=== PATIENT | male | born 1955 | race Caucasian/White ===

== ENCOUNTER 2018-03-06 09:43 | Inpatient (IN) | payer OTHER ==
[~2018-03-06 09:43] MED LIST: Buffered Lidocaine 0.9% SYRIN* 5 ML/SYR SYRINGE INTRADERM ONE; Sodium Citrate/Citric Acid* 15 ML UDC PO ONE
--- OUTSIDE RECORDS SUMMARY | 2018-03-06 09:51 | XMS REPORT | Continuity of Care Document ---
:1955 External Reference #:[id number] Author Name Mariely Isabela Care Team Providers Name Role Phone Samy Tipton M.D. Primary Care Physician Unavailable Payers Type Date Identification Numbers Payment Provider Subscriber Effective: Policy Number: [id number] [employer] Arthur Wilbur 2014 Medicaid PayID: [id number] [address] [address] [place] [address] Effective: 2011 Policy Number: [id number] [employer] Arthur Wilbur Expires: 2014 PayID: [id number] [address] [address] [place] [address] Effective: 2010 Policy Number: [id number] [employer] Arthur Wilbur Expires: 2011 PayID: [id number] [address] [address] [place] [address] Effective: 2007 Policy Number: [id number] [facility] Ppo Arthur Wilbur Expires: 2010 PayID: [id number] [address] [address] [place] [address] Advance Directives Description No Information Available Problems Date Description Provider Status Onset: 12/13/2011 Aortocoronary Bypass Postsurgical Ana Rosa Cervantes D.O. Active Status Onset: 12/27/2011 Coronary arteriosclerosis Genesis Ayers N.PPenny Active Onset: 12/27/2011 Benign essential hypertension Genesis Ayers N.PPenny Active Onset: 12/27/2011 Hyperlipidemia Genesis Ayers N.Faith Active Onset: 12/27/2011 Type 2 diabetes mellitus with Genesis Ayers NCuauhtemoc Active multiple complications Onset: 04/22/2012 Chronic ischemic heart disease Ana Rosa Cervantes D.O. Active Onset: 06/11/2012 Chest pain Ana Rosa Cervantes D.O. Active Onset: 01/04/2015 Type II diabetes mellitus Dejah Cano M.D. Active uncontrolled Onset: 08/15/2015 Type II diabetes mellitus Dejah Cano M.D. Active uncontrolled Onset: 02/26/2017 Skin sensation disturbance Soraya Henry M.D. Active Onset: 02/26/2017 Carpal tunnel syndrome Soraya Henry M.D. 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 Onset: 12/16/2017 Cervical kyphosis Emory Em MD Active Family History Date Family Member(s) Problem(s) Comments : (age 70 Father due to [place] Years) Children 2 daughters, 1 son 1 son bipolar Siblings 3 brothers, 1 half sister 1 brother [place], CAGB, younger brother htn Social History Type Date Description Comments Sex Unknown Marital Status Lives With Son 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[employer], 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 Tobacco Use Start: Unknown Never Smoked Cigarettes Smoking Status Reviewed: 02/28/18 Never Smoked Cigarettes ETOH Use Denies alcohol use ETOH Use Has consumed alcohol in the past Tobacco Use Start: Unknown Patient has never smoked Recreational Drug Use Denies Drug Use Exercise Type/Frequency Does not exercise Allergies, Adverse Reactions, Alerts Date Description Reaction Status Severity Comments 03/27/2016 Codeine Hyperactivity Active 12/13/2011 No Known Drug Allergy Inactive Medications Medication Date Status Form Strength Qnty SIG Indications Ordering Provider Atorvastatin 02/27 Active Tablets 40mg 90tab 1 by mouth Dejah s every day Lyudmila Cano M.D. Diltiazem CD 10/09 Active Caps ER 240mg 30cap 1 tab by R00.1 Dejah 24HR s mouth F. Mauser, every day M.DPenny Mirtazapine 09/17 Active Tablets 15mg 30tab -1 tab by Dejah /2016 s mouth at Penny Cano, bedtime M.DPenny prn Metformin HCL ER Active Tablets 1000mg once daily Unknown /0000 ER 24HR Aspirin Ec Lo-Dose Active Tablets 81mg 1 tablet Unknown /0000 DR daily. Gas Relief Active Chewtabs 80mg 1 tab Unknown three times daily orally as needed Pantoprazole Active Solution 40mg 1 by mouth Unknown Sodium Rec every day Hydrochlorothiazid Active Tablets 12.5mg Take One Unknown e 0000 Tablet By Mouth Every Day Zolpidem Tartrate Active Tablets 5mg as needed Danuta, at bedtime Fredrick Glover Ranitidine HCL Active Tablets 150mg take one Unknown tablet as needed Atorvastatin 12/11 Hx Tablets 20mg take 1 Dejah Calcium tablet at Penny Cano, - bedtime M.D. 02/27 Vitamin B6 05/03 Hx Tablets 50mg 1 by mouth Vassilios every day Maria Antonia Martinez MD 09/08 Wrist Splints - 04/17 Hx Misc 2unit use Soraya Mrai Thumb s nightly to Elaine, - help with M.D. 09/08 numbness and tingling in the r&L hand (r & L Hand-Open Thumb Wrist Splint) , size accordingl y Valium 02/26 Hx Tablets 5mg 2tabs 1-2 by R20.2 Soraya Tena /Dian Henry, - to mri M.D. 05/03 Atorvastatin 08/14 Hx Tablets 40mg 1 by mouth Dejah Calcium /2015 every day, Lyudmila Cano, - (pt taking M.D. 12/11 20mg tab daily) Atorvastatin 08/31 Hx Tablets 20mg 30tab 2 by mouth Dejah Calcium /2014 s every day Lyudmila Cano, - M.D. 08/14 Metoprolol 04/21 Hx Tablets 25mg 60tab 1/2 by Dejah Succinate ER ER 24HR s mouth Lyudmila Cano, - daily M.D. 06/08 Enalapril Maleate 03/15 Hx Tablets 20mg 30tab 1 /2 by Dejah /2013 s mouth Lyudmila Cano, - twice a M.D. (increased 03/05/16) Metoprolol 03/15 Hx Tablets 100mg 1/2 by Dejah Succinate ER 24HR mouth Lyudmila Cano, - twice a M.D. Hydrochlorothiazid 03/14 Hx Tablets 25mg 30tab 1 tab by Other e s mouth Ordering - every day Provider 02/26 Penicillin V 03/14 Hx Tablets 500mg 40tab 2 tabs by Other Potassium s mouth then Ordering - 1 three Provider 09/08 times day for dental work Atorvastatin 07/22 Hx Tablets 40mg 30tab 1 tablet Monet s by mouth Romney, - daily M.D. 08/31 Metoprolol 06/11 Hx Tablets 100mg 1 1/2 tabs Other Succinate ER 24HR once daily Ordering - Provider 03/15 Aleve 06/11 Hx Capsules 220mg 60cap 1 po prn s - 03/14 Simvastatin 04/22 Hx Tablets 40mg 30tab 1 po qhs radu Cervantes, - D.OPenny 07/22 Gas-X 12/26 Hx once daily Andria, - N.P. 06/11 Melatonin 12/26 Hx one at bedtime Andria, - N.P. 06/11 Mobic 02/09 Hx Tablets 7.5mg 60tab one po bid s prn pain Jennifer, - M.D. 12/12 Enalapril Maleate Hx Tablets 20mg 1 po qd Unknown /0000 - 03/15 Aspirin 00/ Hx Tablets 325mg 1/2 po qd Unknown / DR - 06/07 Plavix / Hx Tablets 75mg 30tab 1 po qd Unknown / s - 06/11 Ferrous Sulfate / Hx 325mg 1 tab tid Unknown /0000 - 12/26 Lantus Hx Solution 100Unit/M 6Vial 10 units Unknown /0000 L s qam - 06/11 Isosorbide 00/00 Hx Tablets 15mg 1 po qd Unknown Mononitrate /0000 - 06/11 Metoprolol 00 Hx Tablets 25mg 60tab 3 tablets Unknown Tartrate /0000 s qam and 3 - tablets 06/11 q /2012 Zocor 00/ Hx Tablets 20mg 100ta 1 po qhs Unknown /0000 bs - 04/22 Aleve 00 Hx Capsules 220mg 60cap 1 po prn Unknown /0000 s - 06/11 Omeprazole Hx Capsules 40mg 30cap 1 cap po Unknown /0000 DR s qd - 09/16 Cardizem CD Hx Caps ER 120mg 270ca 2 tabs by R00.1 Dejah /0000 24HR ps mouth Lyudmila Cano, - every M.D. 10/09 and 1 tab by mouth every night Iron 00 Hx Tablets 65mg 1 by mouth Unknown /0000 every day - 01/03 Vitamin B12 Hx Tablets 500mg 1 by mouth Unknown /0000 every day - 01/03 Magnesium 00 Hx Tablets 500mg 1 by mouth Unknown /0000 every day Escitalopram Hx Tablets 10mg 1 by mouth Unknown Oxalate /0000 every day - 02/03 Isosorbide 0000 Hx Tablets 30mg 1 by mouth Unknown Mononitrate ER /0000 ER 24HR every day - 03/05 Enalapril Maleate 00 Hx Tablets 10mg 1 by mouth Unknown /0000 bid - 02/25 Indomethacin Hx Capsules 50mg take 1 Unknown /0000 capsule by - mouth tid 01/21 Zolpidem Tartrate 00 Hx Tablets 5mg 1 tab at Unknown /0000 bedtime as - needed for 04/15 Cetirizine HCL 00/00 Hx Tablets 10mg 1 by mouth Unknown /0000 every day - 05/03 Hydrochlorothiazid 0000 Hx Tablets 25mg 1 by mouth Unknown e /0000 every day - 04/15 Chlorothiazide 00 Hx Tablets 250mg 1 by mouth Danuta, /0000 every day Fredrick Glover - 10/08 Metoprolol 00/00 Hx Tablets 25mg 30tab Take One Unknown Succinate ER /0000 ER 24HR s half - Tablet By 01/21 Every Day Medications Administered in Office Medication Date Status Form Strength Qnty SIG Indications Ordering Provider Technetium TC Administered Injection Austen S. 99M 018 Heladio, Tetrofosmin, FACC Per Unit Dose Up To 40 Millicuries Technetium TC Administered Injection Aly Davis 99M 015 Shen Vazquez M.D., FACC, Per Unit Dose FASNC Up To 40 Millicuries Immunizations Description No Information Available Vital Signs Date Vital Result Comment 02/28/2018 11:39am Height 69 inches 5'9" Weight 233.00 lb BP Systolic Sitting 142 mmHg BP Diastolic Sitting 78 mmHg Pain Level 8 BMI (Body Mass Index) 34.4 kg/m2 01/22/2018 11:04am Weight 232.00 lb Heart Rate 70 /min BP Systolic Sitting 128 mmHg Rue regular cuff BP Diastolic Sitting 78 mmHg Rue regular cuff Respiratory Rate 16 /min Ejection Fraction 55-60 echcoardiogram 10/14/17 12/16/2017 3:15pm Height 69 inches 5'9" Weight 235.00 lb BP Systolic Sitting 140 mmHg BP Diastolic Sitting 60 mmHg Pain Level 6 BMI (Body Mass Index) 34.7 kg/m2 12/10/2017 10:36am Heart Rate 62 /min BP Systolic 150 mmHg HOme cuff BP Diastolic 82 mmHg HOme cuff BP Systolic Sitting 148 mmHg BP Diastolic Sitting 84 mmHg Respiratory Rate 18 /min 11/26/2017 10:34am Height 72 inches 6'0" Weight 233.00 lb Heart Rate 92 /min BP Systolic Sitting 140 mmHg BP Diastolic Sitting 90 mmHg Respiratory Rate 18 /min BMI (Body Mass Index) 31.6 kg/m2 Ejection Fraction 55-60% 10/14/2017 echo 10/09/2017 7:43am Height 72 inches 6'0" Weight 243.00 lb No shoes Heart Rate 64 /min BP Systolic Sitting 162 mmHg Rue reg cuff BP Diastolic Sitting 90 mmHg Rue reg cuff BP Systolic Standing 172 mmHg Rue reg cuff BP Diastolic Standing 94 mmHg Rue reg cuff BP Systolic Lying Down 162 mmHg LA repeat sitting BP Diastolic Lying Down 81 mmHg LA repeat sitting Respiratory Rate 16 /min BMI (Body Mass Index) 33.0 kg/m2 Ejection Fraction No EF 04/20/14-echo 09/09/2017 10:56am Height 72 inches 6'0" Weight 241.00 lb Heart Rate 68 /min BP Systolic Sitting 124 mmHg BP Diastolic Sitting 70 mmHg Respiratory Rate 16 /min BMI (Body Mass Index) 32.7 kg/m2 07/02/2017 2:20pm Height 72 inches 6'0" Weight 230.00 lb Heart Rate 78 /min BP Systolic Sitting 122 mmHg BP Diastolic Sitting 80 mmHg Pain Level 8 BMI (Body Mass Index) 31.2 kg/m2 06/24/2017 10:50am Height 72 inches 6'0" Weight 230.00 lb Heart Rate 76 /min BP Systolic Sitting 136 mmHg BP Diastolic Sitting 74 mmHg Pain Level 4 BMI (Body Mass Index) 31.2 kg/m2 05/28/2017 2:57pm Height 72 inches 6'0" Weight 230.00 lb Heart Rate 81 /min BP Systolic Sitting 132 mmHg BP Diastolic Sitting 74 mmHg Pain Level 7 BMI (Body Mass Index) 31.2 kg/m2 05/03/2017 9:37am Height 72 inches 6'0" Weight 230.00 lb Heart Rate 88 /min BP Systolic Sitting 137 mmHg BP Diastolic Sitting 72 mmHg Pain Level 6 BMI (Body Mass Index) 31.2 kg/m2 04/16/2017 1:06pm Height 72 inches 6'0" Weight 230.00 lb Heart Rate 64 /min BP Systolic 136 mmHg BP Diastolic 78 mmHg BMI (Body Mass Index) 31.2 kg/m2 02/26/2017 10:09am Height 72 inches 6'0" Weight 225.00 lb Heart Rate 64 /min BP Systolic 132 mmHg BP Diastolic 74 mmHg Respiratory Rate 14 /min BMI (Body Mass Index) 30.5 kg/m2 09/17/2016 11:35am Height 72 inches 6'0" Weight 228.75 lb w/shoes Heart Rate 74 /min BP Systolic Sitting 128 mmHg LA lg cuff BP Diastolic Sitting 74 mmHg LA lg cuff BMI (Body Mass Index) 31.0 kg/m2 Ejection Fraction 64% 06/15/14 03/27/2016 2:53pm Height 72 inches 6'0" Weight 235.00 lb w/o shoes Heart Rate 84 /min reg BP Systolic Sitting 120 mmHg Rue, reg cuff BP Diastolic Sitting 82 mmHg Rue, reg cuff BP Systolic Standing 116 mmHg Rue BP Diastolic Standing 74 mmHg Rue Respiratory Rate 16 /min BMI (Body Mass Index) 31.9 kg/m2 Ejection Fraction 55-60% as of 04/19/14 echo 03/05/2016 10:47am Height 72 inches 6'0" Weight 241.00 lb w/ shoes Heart Rate 78 /min BP Systolic Sitting 158 mmHg Rue, reg cuff BP Diastolic Sitting 88 mmHg Rue, reg cuff BP Systolic Standing 150 mmHg Rue BP Diastolic Standing 86 mmHg Rue Respiratory Rate 16 /min BMI (Body Mass Index) 32.7 kg/m2 Ejection Fraction 55-60% As of 04/19/14 echo 08/15/2015 10:41am Height 72 inches 6'0" Weight 234.25 lb with shoes Heart Rate 78 /min BP Systolic 142 mmHg LA lrg cuff BP Diastolic 72 mmHg LA lrg cuff BP Systolic Sitting 127 mmHg la repeat sitting BP Diastolic Sitting 78 mmHg la repeat sitting BMI (Body Mass Index) 31.8 kg/m2 Ejection Fraction 64% Nem 01/04/2015 4:04pm Height 72 inches 6'0" Weight 225.00 lb w/shoes Heart Rate 76 /min BP Systolic Sitting 144 mmHg LA reg cuff BP Diastolic Sitting 76 mmHg LA reg cuff BP Systolic Standing 134 mmHg repeat left arm BP Diastolic Standing 62 mmHg repeat left arm BMI (Body Mass Index) 30.5 kg/m2 Ejection Fraction 64 Nem 06/15/14 08/31/2014 8:50am Height 72 inches 6'0" Weight 244.75 lb w/o shoes Heart Rate 64 /min BP Systolic Sitting 140 mmHg LA, reg BP Diastolic Sitting 72 mmHg LA, reg BMI (Body Mass Index) 33.2 kg/m2 Ejection Fraction 55-60% 04/19/14 ECHO 06/08/2014 10:34am Height 72 inches 6'0" Weight 265.00 lb w/shoes Heart Rate 88 /min BP Systolic Sitting 169 mmHg LA reg cuff BP Diastolic Sitting 72 mmHg LA reg cuff Respiratory Rate 14 /min BMI (Body Mass Index) 35.9 kg/m2 03/31/2014 10:59am Heart Rate 68 /min reg BP Systolic Sitting 140 mmHg LA reg BP Diastolic Sitting 82 mmHg LA reg 03/15/2014 3:53pm Height 72 inches 6'0" Weight 262.00 lb Heart Rate 66 /min reg BP Systolic 138 mmHg LA reg BP Diastolic 86 mmHg LA reg BMI (Body Mass Index) 35.5 kg/m2 04/15/2013 9:59am Height 72 inches 6'0" Weight 254.00 lb Heart Rate 80 /min Regular BP Systolic 170 mmHg BP Diastolic 90 mmHg BMI (Body Mass Index) 34.4 kg/m2 07/22/2012 2:08pm Height 72 inches 6'0" Heart Rate 88 /min regular BP Systolic Sitting 115 mmHg BP Diastolic Sitting 68 mmHg 06/11/2012 10:36am Height 72 inches 6'0" Weight 224.00 lb Heart Rate 58 /min BP Systolic 122 mmHg BP Diastolic 78 mmHg BMI (Body Mass Index) 30.4 kg/m2 04/22/2012 2:17pm Height 72 inches 6'0" Weight 224.50 lb Heart Rate 108 /min BP Systolic Sitting 124 mmHg BP Diastolic Sitting 78 mmHg BMI (Body Mass Index) 30.4 kg/m2 01/24/2012 1:41pm Height 72 inches 6'0" Weight 240.00 lb Heart Rate 84 /min Regular BP Systolic Sitting 132 mmHg BP Diastolic Sitting 76 mmHg BMI (Body Mass Index) 32.5 kg/m2 12/27/2011 1:03pm Height 72 inches 6'0" Weight 260.00 lb Heart Rate 84 /min BP Systolic Sitting 134 mmHg BP Diastolic Sitting 76 mmHg BMI (Body Mass Index) 35.3 kg/m2 12/13/2011 1:17pm Height 72 inches 6'0" Weight 266.00 lb Heart Rate 84 /min BP Systolic Sitting 130 mmHg BP Diastolic Sitting 80 mmHg Body Temperature 99.8 F O2 % BldC Oximetry 98 % BMI (Body Mass Index) 36.1 kg/m2 Results Test Date Facility Test Result H/L Range Note CBC No Diff 02/27/2018 [facility] White Blood 7.5 10^3/uL N 3.5-10.[address] [place] [address] [phone] Red Blood Count 5.13 10^6/uL N 4.00-5.40 Hemoglobin 15.7 g/dL N 14.0-18.0 Hematocrit 46 % N 42-52 Mean Corpuscular Volume 90 fL N 80-94 Mean Corpuscular Hemoglobin 31 pg N 27-31 Mean Corpuscular HGB Conc 34 g/dL N 31-36 Red Cell Distribution Width 15 % N 10.5-15 Platelet Count 270 10^3/uL N 150-450 Mean Platelet Volume 9.0 fL N 7.4-10.4 Urinalysis Profile 02/27/2018 [facility] Urine Color Yellow [address] [place] [address] [phone] Urine Appearance Clear Urine Specific Beattie 1.019 N 1.010-1.030 Urine pH 5.0 N 5-9 Urine Urobilinogen Negative Negative Urine Ketones Negative Negative Urine Protein Negative Negative Urine Leukocytes Negative Negative Urine Blood 1+ Abnormal Negative Urine Nitrite Negative Negative Urine Bilirubin Negative Negative Urine Glucose Negative Negative Urine White Blood Cell Trace(0-5/hpf) Absent Urine Red Blood Cell 1+(3-5/hpf) Abnormal Absent Urine Bacteria Absent Absent Inr/Protime 02/27/2018 [facility] Inr 0.88 N 0.77-1.[address] [place] [phone] Laboratory test 02/27/2018 [facility] Partial 31.7 seconds N 26.0-36.[address] [place] [address] [place] [address] PTT [phone] Basic Metabolic 02/27/2018 [facility] Sodium 140 mmol/L N 135- [address] [place] [address] [phone] Potassium 4.1 mmol/L N 3.5-5.0 Chloride 101 mmol/L N 101-111 Co2 Carbon Dioxide 33 mmol/L High 22-32 Anion Gap 6 mmol/L N 2-11 Glucose 114 mg/dL High 70-100 Blood Urea Nitrogen 17 mg/dL N 6-24 Creatinine 0.85 mg/dL N 0.67-1.17 BUN/Creatinine Ratio 20.0 N 8-20 Calcium 9.5 mg/dL N 8.6-10.3 Egfr Non- 90.7 >60 Egfr 109.8 >60 1 Type & Screen 02/27/2018 [facility] Patient Blood Type AB Positive [address] [place] [address] [phone] Antibody Screen NEGATIVE CBC Auto Diff 02/24/2018 [facility] White Blood 8.9 10^3/uL N 3.5-10.8 [address] [facility] [place] [address] [phone] Red Blood Count 5.02 10^6/uL N 4.00-5.40 Hemoglobin 15.2 g/dL N 14.0-18.0 Hematocrit 45 % N 42-52 Mean Corpuscular Volume 89 fL N 80-94 Mean Corpuscular Hemoglobin 30 pg N 27-31 Mean Corpuscular HGB Conc 34 g/dL N 31-36 Red Cell Distribution Width 14 % N 10.5-15 Platelet Count 257 10^3/uL N 150-450 Mean Platelet Volume 8.9 fL N 7.4-10.4 Abs Neutrophils 6.4 10^3/uL N 1.5-7.7 Abs Lymphocytes 1.8 10^3/uL N 1.0-4.8 Abs Monocytes 0.6 10^3/uL N 0-0.8 Abs Eosinophils 0.1 10^3/uL N 0-0.6 Abs Basophils 0 10^3/uL N 0-0.2 Abs Nucleated RBC 0 10^3/uL Granulocyte % 71.3 % N 38-83 Lymphocyte % 20.3 % Low 25-47 Monocyte % 6.3 % N 0-7 Eosinophil % 1.7 % N 0-6 Basophil % 0.4 % N 0-2 Nucleated Red Blood Cells % 0 Lipid Panel - 02/24/2018 [facility] Creatine 155 U/L N 10-[address] Kinase(CK) [place] [address] [phone] Comp Metabolic 02/24/2018 [facility] Sodium 137 N 135-[address] mmol/[place] [address] [phone] Potassium 4.2 mmol/L N 3.5-5.0 Chloride 100 mmol/L Low 101-111 Co2 Carbon Dioxide 32 mmol/L N 22-32 Anion Gap 5 mmol/L N 2-11 Glucose 115 mg/dL High 70-100 Blood Urea Nitrogen 24 mg/dL N 6-24 Creatinine 0.93 mg/dL N 0.67-1.17 BUN/Creatinine Ratio 25.8 High 8-20 Calcium 9.5 mg/dL N 8.6-10.3 Total Protein 6.8 g/dL N 6.4-8.9 Albumin 4.1 g/dL N 3.2-5.2 Globulin 2.7 g/dL N 2-4 Albumin/Globulin Ratio 1.5 N 1-3 Total Bilirubin 0.60 mg/dL N 0.2-1.0 Alkaline Phosphatase 101 U/L N 34-104 Alt 13 U/L N 7-52 Ast 17 U/L N 13-39 Egfr Non- 81.8 >60 Egfr 99.0 >60 3 Lipid Profile 02/24/2018 [facility] Triglycerides 80 mg/dL 4 (Trig/Chol/HDL) [address] [place], [place] [id number] [phone] Cholesterol 145 mg/dL 5 HDL Cholesterol 53.1 mg/dL 6 LDL Cholesterol 76 mg/dL 7 Laboratory test 02/26/2017 [facility] TSH (Thyroid 0.86 N 0.34 -5.[address] Stimulating mcIU/[place] [address] Horm) [phone] Free T4 1.00 ng/dL N 0.61-1.12 9 Vitamin B12 271 pg/mL N 180-914 10 Connective Tissue 02/26/2017 [facility] Anti-Nuclear 0.3 U [address] [place] [address] [phone] Cyclic Citrullinated Peptide <15.6 U 12 Interpretation See Comment 13 Laboratory test 02/26/2017 [facility] C Reactive 2.04 mg/L N < 5.[address] [place] [address] [phone] Lyme Disease Serology Negative Negative 15 Hepatitis C Antibody Nonreactive Nonreactive Laboratory test 05/28/2016 [facility] Point of 144 mg/dL High 74-[address] [place] [address] [phone] Laboratory test 05/28/2016 [facility] Clotest SEE RESULT [address] [place] [address] [phone] CBC Auto Diff 10/25/2015 [facility] White Blood 10.1 N 3.5- 10.[address] Count 10^3/[place] [address] [phone] Red Blood Count 5.19 10^6/uL N 4.0-5.4 Hemoglobin 15.3 g/dL N 14.0-18.0 Hematocrit 45 % N 42-52 Mean Corpuscular Volume 87 fL N 80-94 Mean Corpuscular Hemoglobin 30 pg N 27-31 Mean Corpuscular HGB Conc 34 g/dL N 31-36 Red Cell Distribution Width 14 % N 10.5-15 Platelet Count 251 10^3/uL N 150-450 Mean Platelet Volume 9 um3 N 7.4-10.4 Abs Neutrophils 7.5 10^3/uL N 1.5-7.7 Abs Lymphocytes 1.9 10^3/uL N 1.0-4.8 Abs Monocytes 0.6 10^3/uL N 0-0.8 Abs Eosinophils 0.1 10^3/uL N 0-0.6 Abs Basophils 0 10^3/uL N 0-0.2 Abs Nucleated RBC 0.01 10^3/uL N Granulocyte % 74.3 % N 38-83 Lymphocyte % 19.0 % Low 25-47 Monocyte % 5.5 % N 1-9 Eosinophil % 0.9 % N 0-6 Basophil % 0.3 % N 0-2 Nucleated Red Blood Cells % 0.1 N Comp Metabolic Panel 10/25/2015 [facility] Sodium 138 mmol/L N 133-[address] [place] [address] [phone] Potassium 4.1 mmol/L N 3.5-5.0 Chloride 100 mmol/L Low 101-111 Co2 Carbon Dioxide 30 mmol/L N 22-32 Anion Gap 8 mmol/L N 2-11 Glucose 107 mg/dL High 70-100 Blood Urea Nitrogen 21 mg/dL N 6-24 Creatinine 0.80 mg/dL N 0.67-1.17 BUN/Creatinine Ratio 26.3 High 8-20 Calcium 9.6 mg/dL N 8.6-10.3 Total Protein 7.2 g/dL N 6.4-8.9 Albumin 4.4 g/dL N 3.2-5.2 Globulin 2.8 g/dL N 2-4 Albumin/Globulin Ratio 1.6 N 1-3 Total Bilirubin 0.60 mg/dL N 0.2-1.0 Alkaline Phosphatase 90 U/L N 34-104 Alt 11 U/L N 7-52 Ast 12 U/L Low 13-39 Egfr Non- 98.0 N >60 Egfr 126.0 N >60 18 Lipid Profile 10/25/2015 [facility] Triglycerides 113 mg/dL N 19 (Trig/Chol/HDL) [address] [place] [address] [phone] Cholesterol 169 mg/dL N 20 HDL Cholesterol 50.6 mg/dL N 21 LDL Cholesterol 96 mg/dL N 22 Laboratory test 10/25/2015 [facility] Uric Acid 6.5 mg/dL N 4.4-7.[address] [place] [address] [phone] Magnesium 1.6 mg/dL Low 1.9-2.7 24 TSH (Thyroid Stim Horm) 1.19 mcIU/mL N 0.34-5.60 25 Vitamin B12 340 pg/mL N 180-914 26 Vitamin D Total 25(Oh) 27.2 ng/mL Low 30-50 27 Hemoglobin A1c (Glyco HGB) 5.9 % N Less than 6.0 28 Lipid Panel - 04/11/2015 [facility] Creatine Kinase 93 U/L N 10-[address] [place] [address] [phone] Comp Metabolic 04/11/2015 [facility] Sodium 138 N 133-[address] mmol/[place] [address] [phone] Potassium 4.5 mmol/L N 3.5-5.0 Chloride 100 mmol/L Low 101-111 Co2 Carbon Dioxide 33 mmol/L High 22-32 Anion Gap 5 mmol/L N 2-11 Glucose 118 mg/dL High 70-100 Blood Urea Nitrogen 21 mg/dL N 6-24 Creatinine 0.92 mg/dL N 0.67-1.17 BUN/Creatinine Ratio 22.8 High 8-20 Calcium 9.4 mg/dL N 8.6-10.3 Total Protein 6.8 g/dL N 6.4-8.9 Albumin 4.2 g/dL N 3.2-5.2 Globulin 2.6 g/dL N 2-4 Albumin/Globulin Ratio 1.6 N 1-3 Total Bilirubin 0.40 mg/dL N 0.2-1.0 Alkaline Phosphatase 86 U/L N 34-104 Alt 10 U/L N 7-52 Ast 12 U/L Low 13-39 Egfr Non- 83.6 N >60 Egfr 107.6 N >60 30 Lipid Profile 04/11/2015 [facility] Triglycerides 96 mg/dL N 31 (Trig/Chol/HDL) [address] [place] [address] [phone] Cholesterol 139 mg/dL N 32 HDL Cholesterol 52.8 mg/dL N 33 LDL Cholesterol 67 mg/dL N 34 CBC Auto Diff 07/22/2014 [facility] White Blood 7.7 10^3/uL N 4.8-10.[address] [place] [address] [phone] Red Blood Count 4.53 10^6/uL N 4.0-5.4 Hemoglobin 13.4 g/dL Low 14.0-18.0 Hematocrit 40 % Low 42-52 Mean Corpuscular Volume 89 fL N 80-94 Mean Corpuscular Hemoglobin 30 pg N 27-31 Mean Corpuscular HGB Conc 33 g/dL N 31-36 Red Cell Distribution Width 16 % High 10.5-15 Platelet Count 259 10^3/uL N 150-450 Mean Platelet Volume 9 um3 N 7.4-10.4 Abs Neutrophils 5.4 10^3/uL N 1.5-7.7 Abs Lymphocytes 1.8 10^3/uL N 1.0-4.8 Abs Monocytes 0.4 10^3/uL N 0-0.8 Abs Eosinophils 0.1 10^3/uL N 0-0.6 Abs Basophils 0 10^3/uL N 0-0.2 Abs Nucleated RBC 0 10^3/uL N Granulocyte % 69.8 % N 38-83 Lymphocyte % 23.0 % Low 25-47 Monocyte % 5.2 % N 1-9 Eosinophil % 1.5 % N 0-6 Basophil % 0.5 % N 0-2 Nucleated Red Blood Cells % 0 N Comp Metabolic Panel 07/22/2014 [facility] Sodium 136 mmol/L N 133-[address] [place] [address] [phone] Potassium 4.3 mmol/L N 3.5-5.0 Chloride 98 mmol/L Low 101-111 Co2 Carbon Dioxide 31 mmol/L N 22-32 Anion Gap 7 mmol/L N 2-11 Glucose 111 mg/dL High 70-100 Blood Urea Nitrogen 23 mg/dL N 6-24 Creatinine 1.05 mg/dL N 0.67-1.17 BUN/Creatinine Ratio 21.9 High 8-20 Calcium 9.5 mg/dL N 8.6-10.3 Total Protein 6.7 g/dL N 6.4-8.9 Albumin 4.3 g/dL N 3.2-5.2 Globulin 2.4 g/dL N 2-4 Albumin/Globulin Ratio 1.8 N 1-3 Total Bilirubin 0.40 mg/dL N 0.2-1.0 Alkaline Phosphatase 74 U/L N 34-104 Alt 24 U/L N 7-52 Ast 25 U/L N 13-39 Egfr Non- 72.0 N >60 Egfr 92.7 N >60 36 Lipid Profile 07/22/2014 [facility] Triglycerides 100 mg/dL N 37 (Trig/Chol/HDL) [address] [place] [address] [phone] Cholesterol 132 mg/dL N 38 HDL Cholesterol 45.6 mg/dL N 39 LDL Cholesterol 66 mg/dL N 40 Laboratory test 07/22/2014 [facility] PSA Screening 3.628 ng/mL N 0-4.000 41 finding [address] [place] [address] [phone] Hemoglobin A1c 6.4 % High Less than 6.0 42 Basic Metabolic Panel 04/14/2014 [facility] Sodium 136 mmol/L N 133-145 [address] [place] [address] [phone] Potassium 4.5 mmol/L N 3.5-5.0 Chloride 98 mmol/L Low 101-111 Co2 Carbon Dioxide 31 mmol/L N 22-32 Anion Gap 7 mmol/L N 2-11 Glucose 124 mg/dL High 70-100 Blood Urea Nitrogen 21 mg/dL N 6-24 Creatinine 0.93 mg/dL N 0.67-1.17 BUN/Creatinine Ratio 22.6 High 8-20 Calcium 9.4 mg/dL N 8.6-10.3 Egfr Non- 82.9 N >60 Egfr 106.6 N >60 43 Laboratory test 04/14/2014 [facility] Hemoglobin A1c 6.7 % High Less than [address] [place] [address] [phone] Lipid Profile 09/04/2012 [facility] Triglycerides 63 mg/dL 40 -200 (Trig/Chol/HDL) [address] [place] [address] [phone] Cholesterol 110 mg/dL Less than 200 HDL Cholesterol 46 mg/dL 40-60 45 Cholesterol/HDL Ratio 2.4 Average 1-4.44 LDL Cholesterol 51.4 Less Than 100 46 Laboratory test finding 09/04/2012 [facility] Alt 17 U/L 14- 54 47 [address] [place] [address] [phone] Ast 17 U/L 12-42 48 Comp Metabolic Panel 07/16/2012 [facility] Sodium 140 mmol/L 133-145 [address] [place] [address] [phone] Potassium 5.0 mmol/L 3.5-5.0 Chloride 102 mmol/L 101-111 Co2 Carbon Dioxide 32.0 mmol/L 22-32 Anion Gap 6.0 mmol/L 2-11 Glucose 96 mg/dL 70-100 Blood Urea Nitrogen 17 mg/dL 6-24 Creatinine 0.90 mg/dL 0.50-1.40 BUN/Creatinine Ratio 18.9 8-20 Calcium 9.5 mg/dL 8.1-9.9 Total Protein 6.1 g/dL Low 6.2-8.1 Albumin 3.7 g/dL 3.6-5.4 Globulin 2.4 g/dL 2-4 Albumin/Globulin Ratio 1.5 1-3 Total Bilirubin 0.6 mg/dL 0.4-1.5 Alkaline Phosphatase 73 U/L 30-110 Alt 16 U/L 14-54 Ast 21 U/L 12-42 Egfr Non- 86.7 >60 Egfr 111.5 >60 49 Lipid Profile 07/16/2012 [facility] Triglycerides 90 mg/dL 40 -200 (Trig/Chol/HDL) [address] [place] [address] [phone] Cholesterol 162 mg/dL Less than 200 HDL Cholesterol 47 mg/dL 40-60 50 Cholesterol/HDL Ratio 3.5 Average 1-4.44 LDL Cholesterol 97.0 mg/dL Less Than 100 51 Laboratory test 07/16/2012 [facility] Hemoglobin A1c 6.1 % High Less than [address] [place] [address] [phone] Lipid Profile 12/22/2011 [facility] Triglyceride 104 40-200 (Trig/Chol/HDL) [address] mg/[place] [address] [phone] Cholesterol 140 mg/dL Less Than 200 53 High Density Lipoprotein 45 mg/dL 40-60 54 Cholesterol/HDL Ratio 3.11 AVERAGE 1-4.97 Low Density Lipoprotein 74 mg/dL Less Than 100 55 Liver Function 12/22/2011 [facility] Total Protein 6.3 GM/DL 6.2-8.[address] [place] [address] [phone] Albumin 3.4 GM/DL Low 3.6-5.4 Globulin 2.9 GM/DL 2-4 Albumin/Globulin Ratio 1.2 1-3 Bilirubin Total 0.6 mg/dL 0.4-1.5 56 Bilirubin Direct 0.2 mg/dL 0.1-0.5 Indirect Bilirubin 0.4 mg/dL 0.3-1.0 57 Alkaline Phosphatase 93 U/L 39-117 Alt (SGPT) 18 U/L 17-63 Ast (Sgot) 20 U/L 12-42 Comp Metabolic Panel 12/22/2011 [facility] Sodium 140 mmol/L 135-145 [address] [place] [address] [phone] Potassium 4.2 mmol/L 3.5-5.0 Chloride 105 mmol/L 101-111 Co2 (Carbon Dioxide) 27.0 mmol/L 22-32 Anion Gap 8.0 mmol/L 2-11 58 Glucose 79 mg/dL 70-100 BUN 7 mg/dL 6-24 Creatinine 0.8 mg/dL 0.50-1.40 One Over Creatinine 1.25 BUN/Creatinine Ratio 8.8 8-20 Calcium 9.1 mg/dL 8.1-9.9 Total Protein 6.3 GM/DL 6.2-8.1 Albumin 3.4 GM/DL Low 3.6-5.4 Globulin 2.9 GM/DL 2-4 Albumin/Globulin Ratio 1.2 1-3 Bilirubin Total 0.8 mg/dL 0.4-1.5 59 Alkaline Phosphatase 94 U/L 39-117 Alt (SGPT) 18 U/L 17-63 Ast (Sgot) 22 U/L 12-42 eGFR Non- 99.3 > 60 eGFR 127.7 > 60 60 Laboratory test 12/22/2011 [facility] Hemoglobin A1c 5.9 % Less Than [address] [place] [address] [phone] 1 Because ethnic data is not always readily available, this report includes an eGFR for both -Americans and non- Americans. The National Kidney Disease Education Program (NKDEP) does not endorse the use of the MDRD equation for patients that are not between the ages of 18 and 70, are , have extremes of body size, muscle mass, or nutritional status, or are non- or non-. According to the National Kidney Foundation, irrespective of diagnosis, the stage of the disease is based on the level of kidney function: Stage Description GFR(mL/min/1.73 m(2)) 1 Kidney damage with normal or decreased GFR 90 2 Kidney damage with mild decrease in GFR 60-89 3 Moderate decrease in GFR 30-59 4 Severe decrease in GFR 15-29 5 Kidney failure <15 (or dialysis) 2 FASTING Copy Result to: SAMY TIPTON ([id number]) 3 Because ethnic data is not always readily available, this report includes an eGFR for both -Americans and non- Americans. The National Kidney Disease Education Program (NKDEP) does not endorse the use of the MDRD equation for patients that are not between the ages of 18 and 70, are , have extremes of body size, muscle mass, or nutritional status, or are non- or non-. According to the National Kidney Foundation, irrespective of diagnosis, the stage of the disease is based on the level of kidney function: Stage Description GFR(mL/min/1.73 m(2)) 1 Kidney damage with normal or decreased GFR 90 2 Kidney damage with mild decrease in GFR 60-89 3 Moderate decrease in GFR 30-59 4 Severe decrease in GFR 15-29 5 Kidney failure <15 (or dialysis) 4 Desirable: <150 Borderline High: 150-199 High: 200-499 Very High: >500 5 Desirable: <200 Borderline High: 200-239 High: >239 6 Low: <40 Desirable: 40-60 High: >60 7 Desirable: <100 Near Optimal: 100-129 Borderline High: 130-159 High: 160-189 Very High: >189 8 Copy Result to: ANABEL FRY ([id number]) 9 Copy Result to: ANABEL FRY ([id number]) 10 Normal Range 180 to 914 Indeterminate Range 145 to 180 Deficient Range <145 11 REFERENCE VALUE <=1.0 (Negative) 12 REFERENCE VALUE <20.0 (Negative) 13 Tests for antibodies to dsDNA and RADHA antigens are not performed automatically unless the TABITHA result is > or= 3.0 U. Studies performed at [facility] indicate that positive TABITHA results <3.0 U are rarely accompanied by positive second order tests. Test Performed by: [facility] - [address] [address] 14 Acute inflammation: >10.00 15 Serologic response to B. burgdorferi infection is not detected, but cannot rule out early infection during which low or undetectable antibody levels to B. burgdorferi may be present. If clinically indicated, a new serum specimen should be submitted in 7-14 days. Test Performed by: [facility] - [facility] [address] [place] [address] 16 Top Lift And Automatic Window Repairer: [id number] VALENTINA GARCIA 17 SEE RESULT BELOW Name: ARTHUR WILHELM : [address]: Albert Cross MD Acct: [id number] Unit: [id number] AGE: 60 Location: ENDO Re05/28/16 SEX: M Status: REG REF SPEC: [id number] JESSE: 05/28/[address] [facility] [address]: Albert Cross MD REQ: [id number] RECD: 05/28/16 STATUS: BILL WARD DR: Samy Cano MD _ SOURCE: [facility]: ORDERED: Clotest Procedure Result Reported Site Clotest Final 05/29/16823 ML Clotest Negative * ML - MAIN LAB ([facility]) . END OF REPORT * ML=Testing performed at Main Lab DEPARTMENT OF PATHOLOGY, [address] [place] [address] Rudi Gaytan M.D. Director [facility] # [id number] 18 Because ethnic data is not always readily available, this report includes an eGFR for both -Americans and non- Americans. The National Kidney Disease Education Program (NKDEP) does not endorse the use of the MDRD equation for patients that are not between the ages of 18 and 70, are , have extremes of body size, muscle mass, or nutritional status, or are non- or non-. According to the National Kidney Foundation, irrespective of diagnosis, the stage of the disease is based on the level of kidney function: Stage Description GFR(mL/min/1.73 m(2)) 1 Kidney damage with normal or decreased GFR 90 2 Kidney damage with mild decrease in GFR 60-89 3 Moderate decrease in GFR 30-59 4 Severe decrease in GFR 15-29 5 Kidney failure <15 (or dialysis) 19 Desirable <150 Borderline high 150-199 High 200-499 Very High >500 20 Desirable <200 Borderline high 200-239 High >239 21 Low <40 Desirable: 40-60 High: >60 22 Desirable: <100 mg/dL Near Optimal: 100-129 mg/dL Borderline High: 130-159 mg/dL High: 160-189 mg/dL Very High: >189 mg/dL 23 [id number] Copy Result to: DEJAH CANO ([id number]) 24 [id number] Copy Result to: DEJAH CANO ([id number]) 25 [id number] Copy Result to: DEJAH CANO ([id number]) 26 Normal Range 180 to 914 Indeterminate Range 145 to 180 Deficient Range <145 27 [id number] Copy Result to: DEJAH CANO ([id number]) 28 Therapeutic target for the treatment of diabetes Mellitus patients is <7% HBA1C, and in selective patients <6.0%.Please refer to [place] [employer] Diabetic care guidelines for further information. 29 in 2 m cc pmd fsting 30 Because ethnic data is not always readily available, this report includes an eGFR for both -Americans and non- Americans. The National Kidney Disease Education Program (NKDEP) does not endorse the use of the MDRD equation for patients that are not between the ages of 18 and 70, are , have extremes of body size, muscle mass, or nutritional status, or are non- or non-. According to the National Kidney Foundation, irrespective of diagnosis, the stage of the disease is based on the level of kidney function: Stage Description GFR(mL/min/1.73 m(2)) 1 Kidney damage with normal or decreased GFR 90 2 Kidney damage with mild decrease in GFR 60-89 3 Moderate decrease in GFR 30-59 4 Severe decrease in GFR 15-29 5 Kidney failure <15 (or dialysis) 31 Desirable <150 Borderline high 150-199 High 200-499 Very High >500 32 Desirable <200 Borderline high 200-239 High >239 33 Low <40 Desirable: 40-60 High: >60 34 Desirable: <100 mg/dL Near Optimal: 100-129 mg/dL Borderline High: 130-159 mg/dL High: 160-189 mg/dL Very High: >189 mg/dL 35 FASTING 12 HOUR 36 Because ethnic data is not always readily available, this report includes an eGFR for both -Americans and non- Americans. The National Kidney Disease Education Program (NKDEP) does not endorse the use of the MDRD equation for patients that are not between the ages of 18 and 70, are , have extremes of body size, muscle mass, or nutritional status, or are non- or non-. According to the National Kidney Foundation, irrespective of diagnosis, the stage of the disease is based on the level of kidney function: Stage Description GFR(mL/min/1.73 m(2)) 1 Kidney damage with normal or decreased GFR 90 2 Kidney damage with mild decrease in GFR 60-89 3 Moderate decrease in GFR 30-59 4 Severe decrease in GFR 15-29 5 Kidney failure <15 (or dialysis) 37 Desirable <150 Borderline high 150-199 High 200-499 Very High >500 38 Desirable <200 Borderline high 200-239 High >239 39 Low <40 Desirable: 40-60 High: >60 40 Desirable: <100 mg/dL Near Optimal: 100-129 mg/dL Borderline High: 130-159 mg/dL High: 160-189 mg/dL Very High: >189 mg/dL 41 Serum levels of PSA measured using the Gerhard Michael DXI Hybritech immunoassay should not be interpreted as absolute evidence of the presence or absence of disease. The PSA value should be used in conjunction with other pertinent clinical diagnostic procedures. The values obtained with different assay methods or kits cannot be used interchangeably. 42 Therapeutic target for the treatment of diabetes Mellitus patients is <7% HBA1C, and in selective patients <6.0%.Please refer to [place] [employer] Diabetic care guidelines for further information. 43 Because ethnic data is not always readily available, this report includes an eGFR for both -Americans and non- Americans. The National Kidney Disease Education Program (NKDEP) does not endorse the use of the MDRD equation for patients that are not between the ages of 18 and 70, are , have extremes of body size, muscle mass, or nutritional status, or are non- or non-. According to the National Kidney Foundation, irrespective of diagnosis, the stage of the disease is based on the level of kidney function: Stage Description GFR(mL/min/1.73 m(2)) 1 Kidney damage with normal or decreased GFR 90 2 Kidney damage with mild decrease in GFR 60-89 3 Moderate decrease in GFR 30-59 4 Severe decrease in GFR 15-29 5 Kidney failure <15 (or dialysis) 44 Therapeutic target for the treatment of diabetes Mellitus patients is <7% HBA1C, and in selective patients <6.0%.Please refer to [place] [employer] Diabetic care guidelines for further information. 45 HDL Interpretation: Undesirable: High Risk: Less than 40 mg/dL Desirable: Low Risk: Greater than 60 mg/dL 46 LDL Interpretation: Low Risk Optimal Level: LDL Less than 100 mg/dL Near or Above Optimal: LDL 100-129 mg/dL Borderline High Risk: LDL 130-159 mg/dL High Risk: LDL 160-189 mg/dL Very High Risk: LDL Greater than 189 mg/dL 47 PT IS FASTING 48 PT IS FASTING 49 Because ethnic data is not always readily available, this report includes an eGFR for both -Americans and non- Americans. The National Kidney Disease Education Program (NKDEP) does not endorse the use of the MDRD equation for patients that are not between the ages of 18 and 70, are , have extremes of body size, muscle mass, or nutritional status, or are non- or non-. According to the National Kidney Foundation, irrespective of diagnosis, the stage of the disease is based on the level of kidney function: Stage Description GFR(mL/min/1.73 m(2)) 1 Kidney damage with normal or decreased GFR 90 2 Kidney damage with mild decrease in GFR 60-89 3 Moderate decrease in GFR 30-59 4 Severe decrease in GFR 15-29 5 Kidney failure <15 (or dialysis) 50 HDL Interpretation: Undesirable: High Risk: Less than 40 MG/DL Desirable: Low Risk: Greater than 60 MG/DL 51 LDL Interpretation: Low Risk Optimal Level: LDL Less than 100 MG/DL Near or Above Optimal: LDL 100-129 MG/DL Borderline High Risk: LDL 130-159 MG/DL High Risk: LDL 160-189 MG/DL Very High Risk: LDL Greater than 189 MG/DL 52 Therapeutic target for the treatment of diabetes Mellitus patients is <7% HBA1C, and in selective patients <6.0%.Please refer to [place] [employer] Diabetic care guidelines for further information. 53 CHOLESTEROL INTERPRETATION: Desirable: Less than 200 MG/DL Borderline-High Risk: 200-239 MG/DL High-Risk: 240 MG/DL and over 54 HDL INTERPRETATION: Undesirable: High Risk: Less than 40 MG/DL Desirable: Low Risk: Greater than 60 MG/DL 55 LDL INTERPRETATION: Low Risk Optimal Level: LDL Less than 100 MG/DL Near or Above Optimal: LDL 100-129 MG/DL Borderline High Risk: LDL 130-159 MG/DL High Risk: LDL 160-189 MG/DL Very High Risk: LDL Greater than 189 MG/DL 56 A metabolite of Naproxen, O-desmethylnaproxen, has been shown to interfere with the Jendrassik-Louie method for measuring total bilirubin. Samples from patients who have taken Naproxen have shown spurious elevation in total bilirubin levels. 57 Please note updated reference range, effective 10/20/09 58 Anion gap measurement may be of limited value in the presence of any alkalosis, especially in a combined acid base disorder. . 59 A metabolite of Naproxen, O-desmethylnaproxen, has been shown to interfere with the Jendrassik-Louie method for measuring total bilirubin. Samples from patients who have taken Naproxen have shown spurious elevation in total bilirubin levels. 60 Because ethnic data is not always readily available, this report includes an eGFR for both -Americans and non- Americans. The National Kidney Disease Education Program (NKDEP) does not endorse the use of the MDRD equation for patients that are not between the ages of 18 and 70, are , have extremes of body size, muscle mass, or nutritional status, or are non- or non-. According to the National Kidney Foundation, irrespective of diagnosis, the stage of the disease is based on the level of kidney function: Stage Description GFR(mL/min/1.73 m(2)) 1 Kidney damage with normal or decreased GFR 90 2 Kidney damage with mild decrease in GFR 60-89 3 Moderate decrease in GFR 30-59 4 Severe decrease in GFR 15-29 5 Kidney failure <15 (or dialysis) 61 THERAPEUTIC TARGET FOR THE TREATMENT OF DIABETES MELLITUS PATIENTS IS <7% HBA1C, AND IN SELECTIVE PATIENTS <6.0%. PLEASE REFER TO [place] [employer] DIABETIC CARE GUIDELINES FOR FURTHER INFORMATION. Procedures Date Code Description Status 01/22/2018 60961 EKG Tracing & Interpretation Completed 11/26/2017 51856 EKG Tracing & Interpretation Completed 10/21/2017 50224 Stress Test Completed 10/21/2017 86544 Myocardial Perfusion Imaging Tomographic (Spect) Multiple Completed Studies 10/14/2017 96917 ECHO Transthoracic, Real-Time 2D With Doppler And Color Completed Flow 10/14/2017 40660 ECHO Transthoracic, Real-Time 2D With Doppler And Color Completed Flow 10/09/2017 15231 EKG Tracing & Interpretation Completed 04/16/2017 06756 Nerve Conduction 07-08 Studies Completed 09/17/2016 50660 EKG Tracing & Interpretation Completed 03/05/2016 19171 EKG Tracing & Interpretation Completed 02/08/2016 36242 Treadmill Interp/Report Only Completed 02/08/2016 71484 Stress Test Supervsn W/Out I/R Completed 02/08/2016 44178 EKG, Interpretation Only Completed 08/15/2015 60829 EKG Tracing & Interpretation Completed 01/04/2015 61367 EKG Tracing & Interpretation Completed 06/15/2014 91032 Stress Test Completed 06/15/2014 66480 Myocardial Perfusion Imaging Tomographic (Spect) Multiple Completed Studies 04/19/2014 64161 ECHO Transthoracic, Real-Time 2D With Doppler And Color Completed Flow 03/31/2014 81276 EKG Tracing & Interpretation Completed 03/15/2014 18468 EKG Tracing & Interpretation Completed 06/10/2012 58669 EKG Tracing & Interpretation Completed 12/13/2011 44847 EKG Tracing & Interpretation Completed 11/20/2011 04604 Left Heart Cath. Incl S/I Coronaries, Angio S/I V Gram If Completed Done 11/20/2011 66820 Cath PLMT&NJX L Ventriculog Img S&I Completed 11/20/2011 59065 Color Flow Doppler/Interp & Reprt Completed 11/20/2011 44685 Pulse Wave/Continuous-Interp.RPT Completed 11/20/2011 57250 ECHO Transthorasic Realtime 2D W Doppler & Color Flow Hosp Completed Encounters Type Date Location Provider Dx Diagnosis Office Visit 01/22/2018 [place] [facility] Dejah Coreas M48.02 Spinal stenosis, 11:20a Fredrick Cano cervical region E78.00 Pure hypercholesterolemia, unspecified I10 Essential (primary) hypertension I25.10 Athscl heart disease of [place] coronary artery w/o ang pctrs I44.0 Atrioventricular block, first degree Office Visit 12/16/2017 [facility] M47.12 Other 3:00p [facility] Em MD spondylosis with myelopathy, cervical region M48.02 Spinal stenosis, cervical region M40.202 Unspecified kyphosis, cervical region Office Visit 12/10/2017 [place] Nurse Visit I10 Essential (primary) 10:00a Cardiology Of hypertension [facility] Office Visit 11/26/2017 [place] Francy S. R94.31 Abnormal 11:00a [facility] [place], electrocardiogram [ECG] [facility] N.[facility] [EKG] E78.00 Pure hypercholesterolemia, unspecified I10 Essential (primary) hypertension I25.10 Athscl heart disease of [place] coronary artery w/o ang pctrs Office Visit 10/09/2017 8:20a [place] [facility] Dejah Coreas I10 Essential (primary) Of [facility] Cano M.D. hypertension E78.00 Pure hypercholesterolemia, unspecified I25.10 Athscl heart disease of [place] coronary artery w/o ang pctrs G56.03 Carpal tunnel syndrome, bilateral upper limbs R00.1 Bradycardia, unspecified R94.31 Abnormal electrocardiogram [ECG] [EKG] E66.9 Obesity, unspecified Office Visit 09/09/2017 [place] Joseph Gomez, M47.12 Other spondylosis 11:15a Neurologic M.DPenny with myelopathy, [facility] cervical region G56.03 Carpal tunnel syndrome, bilateral upper limbs Office Visit 07/02/2017 [facility] M41.9 Scoliosis, 3:00p [facility] Em MD unspecified M48.02 Spinal stenosis, cervical region M54.2 Cervicalgia M47.12 Other spondylosis with myelopathy, cervical region Office Visit 06/24/2017 [facility] M41.9 Scoliosis, 11:30a [facility] [place] Em MD unspecified M48.02 Spinal stenosis, cervical region M54.2 Cervicalgia M47.12 Other spondylosis with myelopathy, cervical region Office Visit 05/03/2017 10:00a [facility] [place] M54.2 Cervicalgia [facility] [place] Em MD M41.9 Scoliosis, unspecified M48.02 Spinal stenosis, cervical region M47.12 Other spondylosis with myelopathy, cervical region Office Visit 04/16/2017 1:00p [place] [facility] Soraya Tena G56.03 Carpal tunnel [facility] Henry M.D. syndrome, bilateral upper limbs M48.02 Spinal stenosis, cervical region Office Visit 02/26/2017 10:00a [place] [facility] Soraya Tena R20.2 Paresthesia of [facility] Fredrick Henry skin G56.03 Carpal tunnel syndrome, bilateral upper limbs Z86.12 Personal history of poliomyelitis Office Visit 10/30/2016 10:00a [facility] D[facility]at[facility] Lamonte Jose, G90.09 Other idiopathic peripheral autonomic neuropathy Office Visit 10/16/2016 10:20a [facility] [place] Jose G90.09 Other idiopathic peripheral autonomic neuropathy Office Visit 09/17/2016 11:20a [facility] Dejah Coreas R07.9 Chest pain, Fredrick Cano unspecified I25.10 Athscl heart disease of [place] coronary artery w/o ang pctrs I10 Essential (primary) hypertension K21.0 Gastro-esophageal reflux disease with esophagitis E11.9 Type 2 diabetes mellitus without complications E78.00 Pure hypercholesterolemia, unspecified Office Visit 03/27/2016 3:30p [facility] Millie Menendez, R07.9 Chest pain, Of Operations Dispatcher PA unspecified I25.10 Athscl heart disease of [place] coronary artery w/o ang pctrs I10 Essential (primary) hypertension Office Visit 03/05/2016 11:00a [place] [facility] Millie Menendez, R07.9 Chest pain, Of Operations Dispatcher PA unspecified I25.10 Athscl heart disease of [place] coronary artery w/o ang pctrs I10 Essential (primary) hypertension K21.0 Gastro-esophageal reflux disease with esophagitis Office Visit 02/08/2016 [facility] R07.9 Chest pain, 4:13p Assoc,yamilet Baron, EMR IMPLEMENTATION SPECIALIST unspecified Hospitalists I25.10 Athscl heart disease of [place] coronary artery w/o ang pctrs I10 Essential (primary) hypertension Office Visit 02/07/2016 [facility] R07.9 Chest pain, 4:12p Assoc,yamilet Saul, N.P. unspecified Hospitalists I25.10 Athscl heart disease of [place] coronary artery w/o ang pctrs E11.9 Type 2 diabetes mellitus without complications I10 Essential (primary) hypertension Office Visit 08/15/2015 10:40a [facility] [facility] Dejah Coreas I25.10 Athscl heart Fredrick Cano disease of [place] coronary artery w/o ang pctrs I10 Essential (primary) hypertension I25.2 Old myocardial infarction E11.65 Type 2 diabetes mellitus with hyperglycemia Office Visit 08/31/2014 [place] Millie Menendez, 414.01 Coronary 9:00a Cardiology PA Atherosclerosis [place] 412 Myocardial Infarction Old 401.9 Hypertension Unspec 780.79 Malaise And Fatigue Other 250.82 Diabetes W/ Other Spec Manifestations Type II Uncontrolled Office Visit 06/15/2014 [place] Dejah Coreas 414.01 Coronary 9:30a Cardiology Tamara Cano M.D. Atherosclerosis Operations Dispatcher [place] 412 Myocardial Infarction Old 780.79 Malaise And Fatigue Other 401.9 Hypertension Unspec 250.82 Diabetes W/ Other Spec Manifestations Type II Uncontrolled 272.4 Hyperlipidemia Other Unspec Office Visit 06/08/2014 11:00a [place] [facility] Millie Menendez, 401.1 Hypertension Benign PA 414.01 Coronary Atherosclerosis [place] 412 Myocardial Infarction Old 780.79 Malaise And Fatigue Other 272.4 Hyperlipidemia Other Unspec Office Visit 03/31/2014 11:00a [facility] [facility] Nurse Visit 401.1 Hypertension Benign cc 414.01 Coronary Atherosclerosis [place] Office Visit 03/15/2014 [place] Dejah Coreas 414.01 Coronary 3:20p Cardiology Fredrick Cano Atherosclerosis [place] 412 Myocardial Infarction Old 250.82 Diabetes W/ Other Spec Manifestations Type II Uncontrolled 272.4 Hyperlipidemia Other Unspec 401.1 Hypertension Benign 307.49 Sleep Disorder Other 780.79 Malaise And Fatigue Other Office Visit 04/15/2013 [place] Ana Rosa 414.01 Coronary 10:00a Cardiology Aris Cervantes Atherosclerosis [place] 412 Myocardial Infarction Old V45.81 Aortocoronary Bypass Postsurgical Status 250.82 Diabetes W/ Other Spec Manifestations Type II Uncontrolled 272.4 Hyperlipidemia Other Unspec 401.1 Hypertension Benign Office Visit 07/22/2012 [place] Ana Rosa 414.01 Coronary 2:20p Cardiology AT Aris Cervantes Atherosclerosis [facility] [place] 412 Myocardial Infarction Old 401.1 Hypertension Benign 272.4 Hyperlipidemia Other Unspec 250.82 Diabetes W/ Other Spec Manifestations Type II Uncontrolled Office Visit 06/11/2012 11:00a [place] [facility] Ana [place] 786.50 Pain Chest Aris Cervantes Unspec 414.8 Ischemic Heart Disease Chronic Other Spec Forms 414.01 Coronary Atherosclerosis [place] 412 Myocardial Infarction Old V45.81 Aortocoronary Bypass Postsurgical Status 401.1 Hypertension Benign 719.41 Pain Joint Shoulder Region Office Visit 04/22/2012 2:20p [place] [facility] [place] 414.8 Ischemic Heart AT [facility] Buddy Cervantes. Disease Chronic Other Spec Forms V45.81 Aortocoronary Bypass Postsurgical Status 272.4 Hyperlipidemia Other Unspec 250.82 Diabetes W/ Other Spec Manifestations Type II Uncontrolled 401.1 Hypertension Benign Office Visit 01/24/2012 [place] [facility] 414.01 Coronary 2:00p Cardiology AT [facility] Atherosclerosis [facility] [place] 401.1 Hypertension Benign Office Visit 12/27/2011 [place] [facility] 414.01 Coronary 1:30p Cardiology AT [facility] Atherosclerosis [facility] [place] 401.1 Hypertension Benign 272.4 Hyperlipidemia Other Unspec 250.82 Diabetes W/ Other Spec Manifestations Type II Uncontrolled Office Visit 12/13/2011 Hermila Oseguera V45.81 Aortocoronary 1:20p Cardiology AT Aris Cervantes Bypass Postsurgical [facility] Status 414.01 Coronary Atherosclerosis [place] 411.1 Coronary Syndrome Intermediate 401.1 Hypertension Benign 250.82 Diabetes W/ Other Spec Manifestations Type II Uncontrolled 272.4 Hyperlipidemia Other Unspec Office Visit 11/20/2011 10:13a Hermila Oseguera 411.1 Coronary Syndrome Cardiology Aris Cervantes Intermediate 414.01 Coronary Atherosclerosis [place] 401.1 Hypertension Benign 250.82 Diabetes W/ Other Spec Manifestations Type II Uncontrolled Office Visit 02/09/2011 [facility] [place] 841.9 Sprains & Strains 1:15p [facility] Unspec Office Visit 01/11/2011 [facility] 726.32 Epicondylitis 2:30p [facility] Lateral [facility] Office Visit 04/17/2010 [facility] 719.44 Pain Joint Hand 1:00p Services Of Karol Prieto M.D. Plan of Treatment Future Appointment(s):03/17/2018 12:30 pm - Emory Em MD at [facility]03/18/2018 1:30 pm - Inés Pa NP at [facility]03/20/2018 7:30 am - Emory Em MD at [facility]03/06/2018 7:30 am - Emory Em MD at [facility]
[2018-03-06] MEDS ORDERED: oxyCODONE SR TAB(*) 10 MG TAB.SR ONE (10:42)
[2018-03-06] MEDS ORDERED: ceFAZolin 2 GM PREMIX in ORs 2 GM/50 ML BAG IVPB ONE ×2 (10:42→16:00)
[2018-03-06] MEDS ORDERED: Sodium Citrate/Citric Acid* 15 ML UDC ONE (10:42)
[2018-03-06] MEDS ORDERED: Lidocain 1% EPI 1:100,000 * 30 ML MDV ONE (11:20)
[2018-03-06] MEDS ORDERED: Bacitracin IV* 50,000 UNITS INJ ONE ×2 (11:20→14:16)
[2018-03-06] MEDS ORDERED: Thrombin 5,000 UNITS* 1 APPLIC KIT - topical use - TOPICAL ONE (11:20)
[2018-03-06] MEDS ORDERED: Propofol* 10 MG/ML 20 ML BTL ONE ×2 (11:39→12:52)
[2018-03-06] MEDS ORDERED: Lidocaine 2% PF * 5 ML VIAL ONE (11:40)
[2018-03-06] MEDS ORDERED: Rocuronium* 10 MG/ML VIAL ONE (11:40)
[2018-03-06] MEDS ORDERED: Midazolam* 1 MG/ML 2 ML VIAL (2 MG) ONE (11:57)
[2018-03-06] MEDS ORDERED: fentaNYL* 50 MCG/ML 2 ML VIAL (100 MCG VIAL) ONE ×4 (11:57→18:46)
[2018-03-06] MEDS ORDERED: Dexamethasone IV* 4 MG/ML 1 ML (4 MG) ONE (12:42)
[2018-03-06] MEDS ORDERED: Cisatracurium* 2 MG/ML MDV 5 ML ONE ×2 (13:14→14:58)
[2018-03-06] MEDS ORDERED: Naloxone* 0.4 MG/ML 1 ML VIAL IV PRN (13:37)
[2018-03-06] MEDS ORDERED: diPHENhydraMINE IV* 50 MG/ML 1 ml VIAL (BENADRYL) IV PRN (13:37)
[2018-03-06] MEDS ORDERED: Ondansetron INJ* 2 MG/ML VIAL ONE (15:28)
[2018-03-06] MEDS ORDERED: Neostigmine Methylsulfate* 2 MG/2 ML SYRINGE ONE (16:31)
[2018-03-06] MEDS ORDERED: Glycopyrrolate IV* 0.2 MG/ML 1 ML VIAL ONE (16:31)
[2018-03-06] MEDS ORDERED: DiMENhydriNATE IV* 50 MG/ML VIAL ONE (18:47)
[2018-03-06] MEDS ORDERED: Ondansetron INJ* 2 MG/ML VIAL IV PRN (18:54)
[2018-03-06] MEDS ORDERED: Zolpidem TAB* 5 MG PO PRN (18:56)
[2018-03-06] MEDS ORDERED: Famotidine TAB* 20 MG PO PRN (18:56)
[2018-03-06] MEDS: fentaNYL* 50 MCG/ML 2 ML VIAL (100 MCG VIAL) IV PRN ×4 (18:57→21:16)
[2018-03-06] MEDS ORDERED: oxyCODONE TAB* 5 MG TAB ONE ×2 (21:25→21:27)
[2018-03-06] MEDS: oxyCODONE TAB* 5 MG TAB PO PRN (21:26)
[2018-03-06] MEDS: Mirtazapine TAB* 15 MG PO SCH (23:07)
[2018-03-06] MEDS: Insulin LISPRO* 1 UNITS UNIT SUBCUT SCH (23:08)
--- NOTE | 2018-03-07 01:10 | CONS ---
[facility] MEDICINE CONSULTATION REPORT: DATE OF CONSULT: 03/06/18 PROVIDER: Jess Ferreira NP ATTENDING PHYSICIAN: Dr. Em. CONSULTING PHYSICIAN: Dr. Uzma Hudson (dictated by Jess Ferreira NP). REASON FOR CONSULT: Comanagement of chronic medical conditions. HISTORY OF PRESENT ILLNESS: Mr. Bowles is a 62-year-old male with a past medical history significant for coronary artery disease with VT in 2012, hypertension, diabetes, depression, chronic neck pain, history of polio as a child, who presented to [facility] for cervical fusion with Dr. Em. Please see dictated H and P from Dr. Em for complete details. In brief, the patient is a 62-year-old male who had continued neck pain with left upper extremity weakness and loss of balance, loss of dexterity to the left arm, who opted for an elective cervical fusion with Dr. Em. In the immediate preoperative period, the patient denied any complaints, denied any recent sick contacts. Denied any chest pain, cough, congestion, hemoptysis, or shortness of breath. Denied any nausea, vomiting, or diarrhea. Denied any gross hematuria or dysuria. Denied any urinary frequency or urgency. Did report left arm weakness and loss of dexterity to the left arm. No visual complaints. No dysphagia. No arthralgias or myalgias. No rashes or lesions. No psychosis or anxiety. In the postoperative period, the patient does complain of the need to frequently swallow and feels like he has a bump in his throat. He does have an anterior neck dressing that is intact without any blood. He does have a JOVON drain noted with a small amount of bloody drainage. Airway is patent. PAST MEDICAL HISTORY: 1. Coronary artery disease with an VT in 2011. 2. Hypertension. 3. Diabetes. 4. Depression. 5. Chronic neck pain. 6. History of polio as a child. PAST SURGICAL HISTORY: Includes: 1. Five-vessel bypass in 2011. 2. Varicose vein surgery on the right leg x2. 3. Tonsillectomy. HOME MEDICATIONS: Include: 1. Atorvastatin 40 mg p.o. daily. 2. Diltiazem CD 240 mg p.o. daily. 3. Ambien 5 mg p.o. at bedtime p.r.n. 4. Protonix 40 mg p.o. daily. 5. Remeron 15 mg p.o. at bedtime. 6. Hydrochlorothiazide 12.5 mg p.o. daily. 7. Aspirin 81 mg p.o. daily. 8. Ranitidine 150 mg p.o. daily. ALLERGIES: He has allergy to ACETAMINOPHEN and CODEINE. FAMILY HISTORY: Father with a history of an VT. Mother with a history of heart disease, mother with a history of diabetes. Brother with a history of prostate cancer. SOCIAL HISTORY: Denies any tobacco, alcohol, or illicit drug use. He works at the [employer]. He lives with his son. Surrogate decision maker is Akilah, her phone number is [phone]. He is a full code. REVIEW OF SYSTEMS: There has been no documented fever. No unintended weight loss. Denies any chest pain or edema. Denies any cough, hemoptysis, or shortness of breath. Denies any nausea, vomiting, or diarrhea. Denies any abdominal pain. Denies any gross hematuria or dysuria. He does report a sensation of swelling and a lump in his throat as well as a dry mouth in the immediate postoperative period. He denies any difficulty swallowing. Denies any rashes, lesions, increased depression, or anxiety. Denies any arthralgias or myalgias. PHYSICAL EXAM: Vital signs: Blood pressure in the PACU was 175/92, heart rate is 91, respirations are 16, O2 saturation 97%, temperature was 97.8. General: Mr. Bowles is a 62-year-old male; he appears comfortable sitting on the stretcher in the PACU. He does not appear to be in any acute distress. HEENT: Head is atraumatic and normo-cephalic. Eyes: EOMs are intact. Sclerae anicteric and not pale. Oral mucosa is moist. Neck with C-collar intact. Dressing intact to the anterior neck without drainage. JOVON drain with bloody drainage noted. Chest: Lungs are clear to auscultation bilaterally. No wheezes, rales, or rhonchi. Cardiac: S1, S2. Regular rate and rhythm. No murmurs, rubs, or gallops. Abdomen is soft and nontender. Bowel sounds are present x4. Extremities: He is able to move all 4 extremities. Hand conditioning coach are equal. Radial pulses are +2 bilaterally. Pedal pulses are +2 bilaterally. Neurologic: He is awake, alert, and oriented x 3. Speech is clear. Thought process is intact. Tongue is midline. There is no gross focal deficits. DIAGNOSTIC STUDIES AND LABORATORY DATA: On 02/27/18, WBCs were 7.5, RBCs 5.13, hemoglobin was 15.7, hematocrit was 46, platelet count was 270. INR was 0.88. Sodium 148, potassium 4.1, chloride 101, carbon-dioxide was 33, anion gap was 6 , creatinine 0.85, BUN was 17, glucose was 114. Hemoglobin A1c on 05/30/17 was 5.7. Urine on 02/27/18 was yellow clear, pH was 5.0, specific gravity 1.019. Urine protein was negative, ketones were negative, blood was 1+. Nitrites, bilirubin, urobilinogen, and leukocyte esterase were negative. Urine wbc's were trace, rbc's were +1, bacteria was absent, glucose was negative. IMPRESSION AND PLAN: Mr. Bowles is a 62-year-old male with a past medical history significant for coronary artery disease with a myocardial infarction in 2011, status post five-vessel bypass, hypertension, diabetes, depression, and chronic neck pain who presented to [facility] for an elective cervical fusion with Dr. Em. In the immediate post-operative period, he complains of frequent swallowing, dry mouth, and a feeling of a lump in his throat but denies any difficulty breathing. Our recommendations are as follows: 1. Hypertension. I would continue hydrochlorothiazide 12.5 mg p.o. daily and diltiazem 240 mg p.o. daily. 2. Coronary artery disease. I would continue him on atorvastatin 40 mg p.o. daily, aspirin 81 mg daily when able as well as his Cardizem CD 240 mg p.o. daily. 3. Depression. Continue with supportive care. The patient does not take any home medications at this time. 4. Diabetes. I would recommend Accu-Cheks a.c. and h.s. with lispro sliding scale. I would recommend holding his metformin at this time and resume when discharged. 5. Acid reflux. I would continue him on his Protonix, ranitidine 150 mg p.o. b.i.d. 6. Fluids, electrolytes, nutrition: He should be placed on a heart healthy, decaf okay diet. 7. Code status: He is a full code. 8. DVT prophylaxis: As per Neurosurgery. TIME SPENT: Time spent on this consultation was 60 minutes, greater than half of that time was spent with the patient and his family discussing events leading thus far to his hospitalization, performing my physical exam, and implementing my plan of care. I have discussed this with my attending, Dr. Uzma Hudson; she is in agreement with my plan. JESS FERREIRA, TELEMARKETER [id number]/[facility] #: [id number] MEL
[2018-03-07] MEDS: Cyclobenzaprine TAB* 10 MG PO PRN ×2 (02:12→13:30)
[2018-03-07] MEDS: oxyCODONE TAB* 5 MG TAB PO PRN ×4 (04:58→21:50)
[2018-03-07] MEDS: Insulin LISPRO* 1 UNITS UNIT SUBCUT SCH ×4 (09:55→21:08)
[2018-03-07] MEDS: Diltiazem CD CAP* 240 MG PO SCH (09:56)
[2018-03-07] MEDS: Omeprazole CAP* 20 MG PO SCH (09:56)
[2018-03-07] MEDS: Hydrochlorothiazide TAB* 25 MG PO SCH (09:56)
--- NOTE | 2018-03-07 09:59 | OP ---
DATE OF OPERATION: 03/06/18 - ROOM #331 DATE OF : 51 SURGEON: Emory Em MD DIRECTOR OUTPATIENT SERVICES: DONY Mcclure. The case was done with the assistance of the surgical PA because of the complexity of the case. PRE-OP DIAGNOSES: 1. Degenerative disk disease. 2. Cervical kyphosis. 3. Myelopathy. POST-OP DIAGNOSES: 1. Degenerative disk disease. 2. Cervical kyphosis. 3. Myelopathy. OPERATIVE PROCEDURE: The patient underwent anterior cervical diskectomy and fusion at C4-5, C5-6, C6-7, and C7-T1 with PEEK interbody cages, locally harvested autologous bone graft and DBX with standalone cages. ESTIMATED BLOOD LOSS: 35 cc. COMPLICATIONS: None. INDICATIONS: The patient is a very pleasant 62-year-old gentleman with chin-on - chest deformity and degenerative disk disease with MRI findings consistent with multilevel stenosis with loss of cervical lordosis, development of cervical kyphosis, and positive sagittal balance. After failing conservative modalities, the patient was offered the option of surgical intervention for deformity correction and surgical decompression in 2 stages. The patient comes today for the first part of the procedure for the anterior cervical multilevel diskectomy and fusion. After explaining the expectation, limitation, possible complications of the procedure with the patient and his family and his daughter , the complication include but not limited to bleeding, infection, risk of injury to the adjacent structures, coma, paralysis, , need for additional procedures, anesthesia risk, stroke, blindness, cancer, instability, hardware failure, adjacent level disease, pseudoarthrosis, recurrent laryngeal nerve injury, spinal fluid leak, need for additional procedures, need for tracheostomy or gastrostomy, Margarito syndrome, need for prolonged ICU stay, and anesthesia risks. The patient was agreeable to proceed with surgery. Informed consent was obtained. The patient and his family including his daughter understood that his condition may not improve, and in fact may get worse after surgery and that he may need to have additional procedures in the future. It was understood that the operative plan may be modified according to intraoperative findings and conditions. It could be done in more than one stage , it can be abandoned, and the patient may need additional procedures in the future. DESCRIPTION OF PROCEDURE: The patient was brought to the operating room, was placed under general anesthesia by the anesthesia team. He was carefully positioned supine and all bony prominences were meticulously padded. His hair was removed with surgical clippers and the skin was prepped and draped in standard fashion after determining the appropriate surgical level with the use of intraoperative x-ray. The skin was infiltrated with local anesthetic and skin incision was made with a #10 surgical blade. The incision was carried down to the platysma with the use of Bovie cautery and the skin was undermined with the use of tenotomy scissors. The platysma was gently elevated and the divided with sharp and blunt dissection while the platysma was gently undermined. The plane between the medial border of the sternocleidomastoid and the medial structures was then gently developed and the anterior part of the spine was identified after incising . Significant amount of osteophytes was found in the anterior sulcus of the spine overlapping significantly the anterior portion of the disk space in multiple levels. Intraoperative fluoroscopic imaging confirmed appropriate surgical level and self-retaining retractors were introduced into the field. Multilevel diskectomies were performed at the C4-5, C5-6, C6-7, and C7-T1 level. After meticulous preparation of the disk space with exposure of the anterior disk space with Kerrison punches and high-speed drill incising the annulus fibrosus with #15 blade, I attempted to carry out the diskectomy with the use of pituitary rongeurs, Kerrison punches, curettes, and high speed drill under microscopic magnification. It was elected to perform at 4th level because of the severity of the anterior ankylosis. It was felt that an additional level was needed in order to achieve better lordosis and facilitate the second part of the procedure. In each level, a divergent PEEK standalone interbody cage was placed after being filled with locally harvested bone graft and DBX. One screw was inserted and secured in each operative level in order to facilitate the second part of the procedure for the posterior instrumentation and fusion. Can accommodate for further deformity correction. Meticulous hemostasis was confirmed in each surgical level and after copious irrigation, the interbody cage was introduced at the C7-T1 level. After preparation of the disk space, the posterior ligament was incised and there was a suspicion of incidental durotomy, although on repeat Valsalva, no spinal fluid was identified. It was elected to place a small piece of DuraGen and minimal layer of DuraSeal in order to prevent any cerebrospinal fistula in the event an occult durotomy would occur. Valsalva maneuver after placement of the patch did not reveal any evidence of cerebrospinal fluid leak. Intraoperative fluoroscopic imaging confirmed excellent placement of all hardware. Then after removal of the self- retaining retractors, copious irrigation and confirmation of meticulous hemostasis and meticulous inspection of all the wounds, the wound was closed by layers over a Terrence drain which was done through separate stab wound incision. At the end of the procedure, all counts were reported to be correct. The wound was closed after confirmation of meticulous hemostasis, copious irrigation, and meticulous inspection. The platysma was approximated with 2-0 interrupted Vicryl sutures while the subcutaneous tissue was approximated with 2-0 Vicryl sutures and was covered with Dermabond and sterile dressings. At the end of the procedure, all counts were reported to be correct. The patient remained hemodynamically stable throughout the case. I was present, scrubbed for the entirety of the case. The patient was then extubated and was transferred to Recovery in excellent condition moving all extremities very well. The case was done with the assistance of a surgical PA because of the complexity of the case. [id number]/[facility] #: [id number] MEL
[2018-03-07] MEDS: Benzocaine/Menthol LOZ* 1 LOZENGE MT PRN ×2 (11:07→17:35)
[2018-03-07] MEDS: Atorvastatin* 40 MG TAB PO SCH (17:34)
--- NOTE | 2018-03-07 17:42 | PN ---
Subjective Date of Service: 03/07/18 Interval History: Mr. Bowles reports that he has 6/10 pain in his neck. He reports some twitching in bilateral fingers. He denies other complaint including chest pain, SOB, nausea, or abdominal pain. He is tolerating oral intake well. Objective Active Medications: Atorvastatin Calcium (Lipitor*) 40 mg PO QPM NISSA Cyclobenzaprine HCl (Flexeril Tab*) 10 mg PO TID PRN Diltiazem HCl (Cardizem Cd Cap*) 240 mg PO QAM NISSA Famotidine (Pepcid Tab*) 20 mg PO BID PRN Hydrochlorothiazide (Hydrodiuril Tab*) 12.5 mg PO QAM NISSA Lactated Ringer's (Lactated Ringers 1000 Ml Bag*) 1,000 mls @ 75 mls/hr IV .per rate NISSA Insulin Human Lispro (Humalog*) 0 units SUBCUT ACHS NISSA; Protocol Magnesium Hydroxide (Milk Of Magnesia Liq*) 30 ml PO DAILY PRN Mirtazapine (Remeron Tab*) 15 mg PO BEDTIME NISSA Morphine Sulfate (Morphine Vial*) 2 mg IV Q4H PRN Omeprazole (Prilosec Cap*) 20 mg PO DAILY@0730 NISSA Ondansetron HCl (Zofran Inj*) 4 mg IV Q6H PRN Oxycodone HCl (Roxycodone Tab*) 10 mg PO Q4H PRN Throat Lozenges (Chloraseptic Afshan*) 1 afshan MT Q6H PRN Zolpidem Tartrate (Ambien Tab*) 5 mg PO BEDTIME PRN Vital Signs: Temp Pulse Resp BP Pulse Ox 98.4 F 97 18 179/91 94 03/07/18 15:28 03/07/18 15:28 03/07/18 17:34 03/07/18 15:28 03/07/18 15:28 Oxygen Devices in Use Now: None Appearance: Male lying in bed in NAD Eyes: No Scleral Icterus Neck: - - parish drain with serosanginous drainage Respiratory: Symmetrical Chest Expansion and Respiratory Effort, Clear to Auscultation Cardiovascular: NL Sounds; No Murmurs; No JVD, No Edema Abdominal: NL Sounds; No Tenderness; No Distention Extremities: No Edema Skin: No Rash or Ulcers Neurological: Alert and Oriented x 3, NL Muscle Strength and Tone Nutrition: Taking PO's Assess/Plan/Problems-Billing Assessment: Mr. Bowles is a 62 yo M with a PMH of CAD, HTN, and DM who was admitted on for a cervical fusion with Dr. Bill. - Patient Problems (1) S/P cervical spinal fusion Comment: - Management per neurosurgery (2) CAD (coronary artery disease) Comment: - Asymptomatic - Continue atorvastatin, resume aspirin when approved per surgery (3) Diabetes Comment: - BGs 130s - continue FSBG AC with lispro ISS. Resume home meds on discharge (4) HTN (hypertension) Comment: - SBP 150-170s. - Stop IVF, continue efforts towards good pain control. Continue diltiazem and hctz. (5) DVT prophylaxis Comment: -SCDS Status and Disposition: Inpatient with disposition per neurosurgery. Anticipate discharge to home when medically stable.
--- NOTE | 2018-03-07 19:55 | PN ---
Progress Note - Progress Note Date of Service: 03/07/18 SOAP: Subjective: []Patient was seen earlier. No events ON. Tolerated procedure well yesterday. Not OOB yet. Tolerates po well. Tan. Objective: [] VSS, Afebrile. Wound s,c,d. Drain output noted. AAOx3, BERNARDO, CN II-XII grossly intact Motor 4-5/5 all extremities Sensory grossly intact to light touch Assessment: []62 yom POD#1 ACDF C4-T1 for cervical deformity Plan: []Monitor VS, Neurochecks Monitor Drain output, consider dc soon CT revealed excellent placement of hardware. XR limited view DC tan Keep MJ collar at all times OOB with assistance HOB 40-60' Repeat XR in am. Fide Em MD
[2018-03-07] MEDS: Mirtazapine TAB* 15 MG PO SCH (21:19)
[2018-03-07] MEDS: hydrALAZINE IV* 20 MG/ML VIAL IV SLOW PU PRN (22:54)
[2018-03-08] MEDS ORDERED: Metoprolol Tartrate IV* 1 MG/ML 5 ML VIAL ONE (01:27)
[2018-03-08] MEDS: Metoprolol Tartrate IV* 1 MG/ML 5 ML VIAL IV PRN ×2 (01:30→11:40)
--- NOTE | 2018-03-08 01:54 | PN ---
Hospitalist Progress Note Date of Service: 03/08/18 HOSPITALIST ADDENDUM Called by RN because patient c/o left facial numbness. Mr Bowles is a 62yo M with PMH of CAD, HTN, DM, who underwent C4T1 fusion on 09/16. He states the left facial numbness has been present for a couple years since he had dental surgery on that side - this is unchanged now. He also has bilateral upper extremities tingling before surgery and this is unchanged now. He states Bobby tendon tingling bilaterally is new over the past week or so, unchanged. Also describes some "twitching" of fingers on both hands, unchanged from before. Only acute complaint now is indigestion after eating goulash for dinner. Denies dyspnea, palpitations, chest pain. Neuro exam: face is symmetric, BERNARDO, EOMI, difficulty smiling due to neck collar , but symmetric. Power 5/5 all 4, sensation intact. D/w Dr Em - prelim CT brain read by him is negative. Will add Maalox for indigestion. Continue to monitor.
[2018-03-08] MEDS ORDERED: Al Hydrox/Mg Hydrox/Simet LIQ* 30 ML UDC PO PRN (02:20)
[2018-03-08] MEDS ORDERED: hydrALAZINE IV* 20 MG/ML VIAL IV SLOW PU ONE (02:29)
[2018-03-08] MEDS ORDERED: Al Hydrox/Mg Hydrox/Simet LIQ* 30 ML UDC ONE (02:33)
--- NOTE | 2018-03-08 02:40 | PN ---
Progress Note - Progress Note Date of Service: 03/08/18 SOAP: Subjective: []Was called by nurse to be notified that patient had complains of facial numbness and generalized numbness. CT of brain was done. Dr Estrada also kindly evaluated patient. Patient reports that has episodes of perioral numbness that occasionally spreads to his UEs and the rest of his body. He reports that has had these episodes for the last three years since he had his teeth extracted. No new symptoms. No numbness at time of exam. Tolerates po well, Ambulates, Voids. Tolerates MJ collar well. Objective: []VSS, Afebrile. Wound s,c,d. AAOx3, BERNARDO, CN II-XII grossly intact Motor 4-5/5 all extremities Sensory grossly intact to light touch Assessment: []62 yom POD#2 ACDF C4-T1 for cervical deformity Plan: [] Monitor VS, Neurochecks CT head did not reveal ICH, hematoma, edema or CVA. Official report pending. BP control per IM Keep MJ collar at all times OOB with assistance HOB 40-60' Repeat XR in am. Greatly appreciate IM consult. Fide Em MD .
[2018-03-08 02:53] LABS: EGFR Non-African American 87.2 (>60)
[2018-03-08] MEDS: oxyCODONE TAB* 5 MG TAB PO PRN ×4 (05:22→23:30)
[2018-03-08] MEDS: Magnesium Hydroxide LIQ* 30 ML UDC PO PRN (05:25)
[2018-03-08] MEDS: Omeprazole CAP* 20 MG PO SCH (07:24)
[2018-03-08] MEDS: Insulin LISPRO* 1 UNITS UNIT SUBCUT SCH ×4 (08:51→20:52)
[2018-03-08] MEDS: Diltiazem CD CAP* 240 MG PO SCH (08:52)
[2018-03-08] MEDS: Hydrochlorothiazide TAB* 25 MG PO SCH (08:52)
--- NOTE | 2018-03-08 09:13 | PN ---
Subjective Date of Service: 03/08/18 Interval History: Mr. Bowles complains that food and liquid feels stuck in his throat when he swallows. He has not vomited. He also reports come continued pain in his neck and left arm. He denies other complaint. Objective Active Medications: Al Hydrox/Mg Hydrox/Simethicone (Maalox Plus*) 30 ml PO Q6H PRN Atorvastatin Calcium (Lipitor*) 40 mg PO QPM NISSA Cyclobenzaprine HCl (Flexeril Tab*) 10 mg PO TID PRN Diltiazem HCl (Cardizem Cd Cap*) 240 mg PO QAM NISSA Famotidine (Pepcid Tab*) 20 mg PO BID PRN Hydralazine HCl (Apresoline Iv*) 5 mg IV SLOW PU Q6H PRN Hydrochlorothiazide (Hydrodiuril Tab*) 12.5 mg PO QAM NISSA Insulin Human Lispro (Humalog*) 0 units SUBCUT ACHS NISSA; Protocol Magnesium Hydroxide (Milk Of Magnesia Liq*) 30 ml PO DAILY PRN Metoprolol Tartrate (Lopressor Iv*) 5 mg IV Q6H PRN Mirtazapine (Remeron Tab*) 15 mg PO BEDTIME NISSA Morphine Sulfate (Morphine Vial*) 2 mg IV Q4H PRN Omeprazole (Prilosec Cap*) 20 mg PO DAILY@0730 NISSA Ondansetron HCl (Zofran Inj*) 4 mg IV Q6H PRN Oxycodone HCl (Roxycodone Tab*) 10 mg PO Q4H PRN Throat Lozenges (Chloraseptic Afshan*) 1 afshan MT Q6H PRN Zolpidem Tartrate (Ambien Tab*) 5 mg PO BEDTIME PRN Vital Signs: Temp Pulse Resp BP Pulse Ox 98.6 F 90 18 150/80 96 03/08/18 07:38 03/08/18 07:38 03/08/18 08:00 03/08/18 07:38 03/08/18 07:38 Oxygen Devices in Use Now: None Appearance: Male sitting up in chair in NAD Eyes: No Scleral Icterus Ears/Nose/Mouth/Throat: Mucous Membranes Moist Neck: Trachea Midline Respiratory: Symmetrical Chest Expansion and Respiratory Effort, Clear to Auscultation Cardiovascular: NL Sounds; No Murmurs; No JVD, No Edema Abdominal: NL Sounds; No Tenderness; No Distention Extremities: No Edema Skin: No Rash or Ulcers Neurological: Alert and Oriented x 3, NL Muscle Strength and Tone Nutrition: Taking PO's Result Diagrams: 03/08/18 02:29 Assess/Plan/Problems-Billing Assessment: Mr. Bowles is a 62 yo M with a PMH of CAD, HTN, and DM who was admitted on for a cervical fusion with Dr. Bill. - Patient Problems (1) S/P cervical spinal fusion Comment: - Management per neurosurgery - Incident of facial tingling overnight, follow up CT brain negative - Now with symptoms of dysphagia, swallow eval pending per ST, NPO till evaluated (2) CAD (coronary artery disease) Comment: - Asymptomatic - Continue atorvastatin, resume aspirin when approved per surgery (3) Diabetes Comment: - BGs 140s - Continue FSBG AC with lispro ISS. Resume home meds on discharge (4) HTN (hypertension) Comment: - SBP 130-150s. - Ccontinue efforts towards good pain control. Continue diltiazem and hctz. (5) DVT prophylaxis Comment: -SCDS (6) Full code status Comment: Status and Disposition: Inpatient with disposition per neurosurgery. Anticipate discharge to home when medically stable.
--- NOTE | 2018-03-08 16:21 | PN ---
Progress Note - Progress Note Date of Service: 03/08/18 SOAP: Subjective: [] No other events ON. No numbness at this point. Still mild difficulty swallowing. Ambulates, Tolerates PO well, Voids. Objective: []VSS, Afebrile. Wound s,c,d. MJ collar. AAOx3, BERNARDO, CN II-XII grossly intact Motor 4-5/5 all extremities Sensory grossly intact to light touch Assessment: []62 yom POD#2 ACDF C4-T1 as stage one procedure for correction of cervical deformity Plan: []Monitor VS, Neurochecks XR of C spine reveals good placement of hardware, improved lordosis and alignment of cervical spine. BP control per IM Keep MJ collar at all times OOB with assistance HOB 40-60' Consider swallow study. Greatly appreciate IM consult. Fide Em MD
[2018-03-08] MEDS: Atorvastatin* 40 MG TAB PO SCH (18:14)
[2018-03-08] MEDS: Mirtazapine TAB* 15 MG PO SCH (20:54)
[2018-03-09] MEDS: oxyCODONE TAB* 5 MG TAB PO PRN ×3 (07:34→21:47)
[2018-03-09] MEDS: Omeprazole CAP* 20 MG PO SCH (07:34)
[2018-03-09] MEDS: Insulin LISPRO* 1 UNITS UNIT SUBCUT SCH ×4 (07:47→22:11)
[2018-03-09] MEDS: Diltiazem CD CAP* 240 MG PO SCH (09:18)
[2018-03-09] MEDS: Hydrochlorothiazide TAB* 25 MG PO SCH (09:18)
--- NOTE | 2018-03-09 10:53 | PN ---
Subjective Date of Service: 03/09/18 Interval History: Patient seen and examined at bedside. Denies fever, chills, shortness of breath , chest discomfort, N/V/D. He reports that he was able to take medications and water without difficulty. He feels like there is something in his throat. We also discussed the numbness that he is having, he has had numbness around his mouth and in bilateral UEs for 3 years. He has seen neurology and was felt to have bilateral carpel tunnel. He states that the numbness around his mouth and in his arms almost completely goes away when he puts his dentures in. He states that he has a lot of anxiety in general and tries non pharmacologic treatments such as going for walks and trying to distract himself. HIs PCP placed him on Mirtazapine, but he has stopped taking this because he didn't like how it made him feel. Family History: Unchanged from Admission Social History: Unchanged from Admission Past Medical History: Unchanged from Admission Objective Active Medications: Al Hydrox/Mg Hydrox/Simethicone (Maalox Plus*) 30 ml PO Q6H PRN Reason: INDIGESTION Atorvastatin Calcium (Lipitor*) 40 mg PO QPM NISSA Cyclobenzaprine HCl (Flexeril Tab*) 10 mg PO TID PRN Reason: muscle spasm Diltiazem HCl (Cardizem Cd Cap*) 240 mg PO QAM NISSA Famotidine (Pepcid Tab*) 20 mg PO BID PRN Reason: HEARTBURN Hydralazine HCl (Apresoline Iv*) 5 mg IV SLOW PU Q6H PRN Reason: SBP>150 Hydrochlorothiazide (Hydrodiuril Tab*) 12.5 mg PO QAM [facility] Insulin Human Lispro (Humalog*) 0 units SUBCUT ACHS [facility]; Protocol Magnesium Hydroxide (Milk Of Magnesia Liq*) 30 ml PO DAILY PRN Reason: CONSTIPATION Metoprolol Tartrate (Lopressor Iv*) 5 mg IV Q6H PRN Reason: SBP>150 Mirtazapine (Remeron Tab*) 15 mg PO BEDTIME NISSA Morphine Sulfate (Morphine Vial*) 2 mg IV Q4H PRN Reason: PAIN Omeprazole (Prilosec Cap*) 20 mg PO DAILY@0730 NISSA Ondansetron HCl (Zofran Inj*) 4 mg IV Q6H PRN Reason: NAUSEA/VOMITING Oxycodone HCl (Roxycodone Tab*) 10 mg PO Q4H PRN Reason: PAIN Throat Lozenges (Chloraseptic Afshan*) 1 afshan MT Q6H PRN Reason: SORE THROAT Zolpidem Tartrate (Ambien Tab*) 5 mg PO BEDTIME PRN Reason: SLEEP Vital Signs - 8 hr 03/09/18 03/09/18 03/09/18 03:10 07:34 07:47 Temperature 97.4 F 97.5 F Pulse Rate 65 68 Respiratory 18 18 18 Rate Blood Pressure 146/72 149/75 (mmHg) O2 Sat by Pulse 98 99 Oximetry 03/09/18 03/09/18 07:49 09:15 Temperature Pulse Rate Respiratory 18 18 Rate Blood Pressure (mmHg) O2 Sat by Pulse Oximetry Oxygen Devices in Use Now: None Appearance: NAD, sitting up in a chair Ears/Nose/Mouth/Throat: Mucous Membranes Moist Respiratory: Symmetrical Chest Expansion and Respiratory Effort, Clear to Auscultation Cardiovascular: NL Sounds; No Murmurs; No JVD, RRR Extremities: No Edema Skin: No Rash or Ulcers Neurological: Alert and Oriented x 3, NL Muscle Strength and Tone Nutrition: Taking PO's Result Diagrams: 03/08/18 02:29 Assess/Plan/Problems-Billing Assessment: Mr. Bowles is a 62 yo M with a PMH significant for CAD, HTN, and DM who was admitted on 03/06/18 for a cervical fusion with Dr. Bill. - Patient Problems (1) S/P cervical spinal fusion Code(s): Z98.1 - ARTHRODESIS STATUS SNOMED Code(s): 8925055561559 Comment: - Management per neurosurgery - Intermittent facial tingling, follow up CT brain negative - Continues to have symptoms of dysphagia (2) Numbness and tingling Code(s): R20.0 - ANESTHESIA OF SKIN; R20.2 - PARESTHESIA OF SKIN SNOMED Code(s ): 434657221220 Comment: - Intermittent issue for 3 years around lips and bilateral UEs, resolves with placement of dentures - Calcium level WNL - Neurology consult, pending (3) Dysphagia Code(s): R13.10 - DYSPHAGIA, UNSPECIFIED SNOMED Code(s): 55251465 Comment: - Concern for possible esophageal tear - Will continue NPO until able to repeat esophagram in the AM - Speech Theapy consult pending (4) CAD (coronary artery disease) Code(s): I25.10 - ATHSCL HEART DISEASE OF [place] CORONARY ARTERY W/O ANG PCTRS SNOMED Code(s): 60156877 Comment: - Asymptomatic - Continue atorvastatin, resume aspirin when approved per neuro surgery (5) Diabetes Code(s): E11.9 - TYPE 2 DIABETES MELLITUS WITHOUT COMPLICATIONS SNOMED Code(s) : 66661371 Comment: - BGs 120-140s - Continue FSBG AC with lispro SS - Resume home meds on discharge (6) HTN (hypertension) Code(s): I10 - ESSENTIAL (PRIMARY) HYPERTENSION SNOMED Code(s): 11875852 Comment: - SBP 130-160s - Continue efforts towards good pain control - Continue diltiazem, hctz and metoprolol IV for SBP > 150 (7) DVT prophylaxis Code(s): FEO0163 - SNOMED Code(s): 384830327 Comment: - SCDS (8) Full code status Code(s): Z78.9 - OTHER SPECIFIED HEALTH STATUS SNOMED Code(s): 166348937 Status and Disposition: Inpatient with disposition per neurosurgery. Anticipate discharge to home when medically stable. Attending: Evelyn Carroll
[2018-03-09] MEDS: Metoprolol Tartrate IV* 1 MG/ML 5 ML VIAL IV PRN (12:07)
--- NOTE | 2018-03-09 12:22 | PN ---
Progress Note - Progress Note Date of Service: 03/09/18 SOAP: Subjective: []No other events ON.One episode of perioral numbnes and facial and UEs numbness that resolved after taking pain medication. No numbness at this point. Still mild difficulty swallowing. Ambulates. Voids, had BM. Esophagogram reported to be negative yesterday, unfortunately images not recorded and patient is scheduled for possible repeat of study in am. Objective: VSS, Afebrile. Wound s,c,d. MJ collar. AAOx3, BERNARDO, CN II-XII grossly intact Motor 4-5/5 all extremities Sensory grossly intact to light touch Assessment: []62 yom POD#3 ACDF C4-T1 as stage one procedure for correction of cervical deformity Plan: [] Monitor VS, Neurochecks BP control per IM Keep MJ collar at all times OOB with assistance HOB 40-60' Consider repeating swallow study in am. Neurology evaluation. Greatly appreciate IM/Neurology consult. Fide Em MD
[2018-03-09] MEDS: Atorvastatin* 40 MG TAB PO SCH (16:57)
--- NOTE | 2018-03-09 21:44 | CONS ---
CC: Dr. Emory Em * CONSULTATION REPORT: DATE OF CONSULT: 03/09/18 REASON FOR CONSULT: Paresthesias of the face and arms. HISTORY OF PRESENT ILLNESS: Mr. Bowles is a 62-year-old gentleman with a history of severe cervical kyphosis, degenerative disk disease, who underwent ACDF C4-T1 stage I procedure 2 days ago with the plan to do a posterior approach with possible fusion in the near future. He tolerated the surgery well and has done well postoperatively, although he has had some problem swallowing. He reports that he has had these episodes where he notes twitching in the left second digit that will then proceed to burning in his left arm, travel up to the left face, cross the midline over to the right side, and then down the right arm. This happens "all day every day," that comes and goes, does not seem to be triggered by anything. He notes that he has had this for several years ever since he had his teeth pulled. He notes that putting his dentures in place helps the symptoms resolve. He was seen by Dr. Henry several years ago and diagnosed with early carpal tunnel, was told to wear braces but never did. He does note some anxiety and was put on mirtazapine, but he stopped taking it due to the side effects. These symptoms seem to occur randomly. There are no known triggers but when they happen, they are very troubling. He notes some burning and tingling around the lips at times. There are no other focal neurologic symptoms at the time. He notes no associated weakness or facial droop. No headaches at the time. No vision changes. He is fairly specific in the description of these episodes. They seem to resolve spontaneously. He does have chronic neck pain. PAST MEDICAL HISTORY: Significant for hypertension, diabetes, depression, neck pain, polio as a child, coronary artery disease with an NE in 2011. PAST SURGICAL HISTORY: ACDF 2 days ago; bypass, 2012, 5 vessels; varicose vein surgery on the right leg; tonsillectomy. FAMILY HISTORY: Coronary artery disease with father with NE and mother with heart disease, mother with diabetes as well. SOCIAL HISTORY: Denies tobacco, alcohol, or drug use. 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 He is . REVIEW OF SYSTEMS: In 14-organ systems as noted above, otherwise negative PHYSICAL EXAM: Vital Signs: Temp of 98.4, pulse rate of 86, respiratory rate of 16, O2 sat of 98%, blood pressure 149/75 to 154/80. In general, he is a well - nourished, well-developed gentleman, lying in his hospital bed. He has a C- collar on. HEENT: He is normocephalic, atraumatic. Sclerae anicteric. Mucous membranes are moist. Oropharynx is clear. Nares are patent. Neck is in a C-collar. Chest: Clear to auscultation bilaterally. Cardiovascular: Regular rate and rhythm. Abdomen is nontender. Extremities: No clubbing, cyanosis, or edema. Skin is warm and dry. Neurologic Examination: He is awake , alert, and oriented x3. His speech is fluent. There is no dysarthria. Repetition is intact. Recall of recent and remote events is intact. Vocabulary is intact. His mood is dysthymic. Affect is mood congruent. Cranial nerves II through XII: Pupils are equally round and reactive to light and accommodation. Extraocular muscles are intact. No diplopia or nystagmus. Visual garcia are full. Face is symmetric. He has intermittent paresthesias of the face around the perioral and bilateral upper and lower face that come in waves, currently no symptoms. Hearing is intact bilaterally. Palate is symmetric. Tongue is midline, difficult to test the sternocleidomastoid. Motor exam: He spontaneously moves all extremities to antigravity. There is no drift, generally 5/5 throughout. Tone and bulk are both normal. DTRs are 3 + at the biceps, 2+ at the triceps, 3+ at the brachioradialis bilaterally, patella are 2+ and symmetric, ankles are 1+ and symmetric, downgoing Babinski' s. Finger-to- nose, rapid alternating movements are intact without tremor. Sensation is grossly intact to light touch and pinprick in the upper and lower extremities. No loss of vibration to proprioception. There are no resting tremors noted. No finger-to- nose tremors was not tested. Sensory Exam: He had positive Tinel's at the right wrist. Negative at the elbows bilaterally. Negative at the left wrist. DIAGNOSTIC STUDIES/LAB DATA: BMP with a potassium of 3.4, chloride of 97, ____ _ of 145, calcium of 8.9. Glucose has been ranging in the 130s to 140s. CT of the head showed no intracranial abnormalities noted. CT of the cervical spine status post fusion with degenerative disk disease, moderate left neural foraminal narrowing at C2-3, severe left neural foraminal narrowing at C3-4, severe left and mild right neuroforaminal narrowing at C4-5, moderate bilateral neural foraminal narrowing at C5-6, severe bilateral neural foraminal narrowing at C6-7. ASSESSMENT AND PLAN: Mr. Bowles is a 62-year-old gentleman with a history of severe neck kyphosis and degenerative disk disease status post anterior cervical diskectomy and fusion 2 days ago with plan for posterior fusion in the near future. I was consulted for evaluation of longstanding perioral and facial numbness and tingling as well as burning, left finger twitch that comes and goes and wave of paresthesias moving from the left finger up the arm, across the face, and down the right side. These tend to come and go paroxysmally and are improved when he puts his dentures in place. He feels that the symptoms started several years ago after he had his dentures pulled. My suspicion is that these symptoms are likely related to anxiety given the nature of them starting at one finger and moving up the arm across the face, crossing midline and down the other arm. I cannot fully explain from a neurologic perspective a specific lesion that might cause this. I would say one reasonable consideration would be some sort of unusual seizure. My plan is to get an EEG tomorrow, but I would not proceed with any other additional workup given the fact that this has been ongoing for years. My plan is to see him back as an outpatient and will continue the workup. He certainly has evidence of carpal tunnel syndrome on the right. Previous evaluation by Dr. Henry revealed mild carpal tunnel and this could be causing some of his symptoms but would not explain the facial symptoms. My suspicion for any underlying vascular cause of these symptoms is very low. So, the plan will be to get an EEG, follow that up , and then plan to see him back as an outpatient. Thank you for the opportunity to participate in the care of this interesting patient. [id number]/[facility] #: [id number] MEL
[2018-03-09] MEDS: Mirtazapine TAB* 15 MG PO SCH (22:11)
[2018-03-10] MEDS: hydrALAZINE IV* 20 MG/ML VIAL IV SLOW PU PRN ×3 (00:12→22:27)
[2018-03-10] MEDS: Morphine VIAL* 4 MG/ML VIAL (1 ml vial) IV PRN ×2 (03:55→11:45)
[2018-03-10] MEDS: Insulin LISPRO* 1 UNITS UNIT SUBCUT SCH ×4 (08:04→21:52)
[2018-03-10] MEDS: Omeprazole CAP* 20 MG PO SCH (09:59)
[2018-03-10] MEDS: Diltiazem CD CAP* 240 MG PO SCH ×2 (09:59→17:42)
[2018-03-10] MEDS: Hydrochlorothiazide TAB* 25 MG PO SCH (09:59)
[2018-03-10] MEDS: Metoprolol Tartrate IV* 1 MG/ML 5 ML VIAL IV PRN (11:49)
--- NOTE | 2018-03-10 16:07 | PN ---
Subjective Date of Service: 03/10/18 Length of Stay: 4 Days Neurology is following Mr. Bowles for the evaluation and management of multiple neurological complaints, mostly jerking of the left digit 5 and intermittent numbness sensation in the extremities and perioral region. Interval History: Mr. Bowles is hungry and frustrated he has nothing to eat for two days. He cannot put his dentures on because he has no denture paste. He does not use any Zinc paste. He had multiple events during the EEG recording that were described as " tingling of the left hand, jerking of the little finger, numbness around the lips." None of those events correlated with any EEG abnormalities or epileptiform discharges. He denied any headache. He has constant tolerable neck pain. He denied any impairment in his bowel or bladder functions. He complains of constantly moving and licking his lips. He was not exposed to any anti-psychotic therapy. Review of Systems: Denied CP, SOB, or palpitations. Family History: Unchanged from Admission Social History: Unchanged from Admission Past Medical History: Unchanged from Admission Objective Active Medications: Al Hydrox/Mg Hydrox/Simethicone (Maalox Plus*) 30 ml PO Q6H PRN PRN Reason: INDIGESTION Last Admin: 03/08/18 02:36 Dose: 30 ml Atorvastatin Calcium (Lipitor*) 40 mg PO QPM [facility] Last Admin: 03/09/18 16:57 Dose: 40 mg Cyclobenzaprine HCl (Flexeril Tab*) 10 mg PO TID PRN PRN Reason: muscle spasm Last Admin: 03/07/18 13:30 Dose: 10 mg Diltiazem HCl (Cardizem Cd Cap*) 240 mg PO QAM [facility] Last Admin: 03/10/18 09:59 Dose: Not Given Famotidine (Pepcid Tab*) 20 mg PO BID PRN PRN Reason: HEARTBURN Hydralazine HCl (Apresoline Iv*) 5 mg IV SLOW PU Q6H PRN PRN Reason: SBP>150 Last Admin: 03/10/18 09:21 Dose: 5 mg Hydrochlorothiazide (Hydrodiuril Tab*) 12.5 mg PO QAM [facility] Last Admin: 03/10/18 09:59 Dose: Not Given Insulin Human Lispro (Humalog*) 0 units SUBCUT [facility]; Protocol Last Admin: 03/10/18 12:19 Dose: Not Given Magnesium Hydroxide (Milk Of Magnesia Liq*) 30 ml PO DAILY PRN PRN Reason: CONSTIPATION Last Admin: 03/08/18 05:25 Dose: 30 ml Metoprolol Tartrate (Lopressor Iv*) 5 mg IV Q6H PRN PRN Reason: SBP>150 Last Admin: 03/10/18 11:49 Dose: 5 mg Mirtazapine (Remeron Tab*) 15 mg PO BEDTIME NISSA Last Admin: 03/09/18 22:11 Dose: Not Given Morphine Sulfate (Morphine Vial*) 2 mg IV Q4H PRN PRN Reason: PAIN Last Admin: 03/10/18 11:45 Dose: 2 mg Omeprazole (Prilosec Cap*) 20 mg PO DAILY@0730 [facility] Last Admin: 03/10/18 09:59 Dose: Not Given Ondansetron HCl (Zofran Inj*) 4 mg IV Q6H PRN PRN Reason: NAUSEA/VOMITING Oxycodone HCl (Roxycodone Tab*) 10 mg PO Q4H PRN PRN Reason: PAIN Last Admin: 03/09/18 21:47 Dose: 10 mg Throat Lozenges (Chloraseptic Afshan*) 1 afshan MT Q6H PRN PRN Reason: SORE THROAT Last Admin: 03/07/18 17:35 Dose: 1 afshan Zolpidem Tartrate (Ambien Tab*) 5 mg PO BEDTIME PRN PRN Reason: SLEEP Last Admin: 03/06/18 23:10 Dose: 5 mg Vital Signs 03/09/18 03/09/18 03/09/18 16:57 19:22 20:30 Temperature 98.5 F Pulse Rate 67 Respiratory 18 16 16 Rate Blood Pressure 144/66 (mmHg) O2 Sat by Pulse 98 Oximetry 03/09/18 03/09/18 03/10/18 21:47 23:51 00:30 Temperature 98.2 F Pulse Rate 85 Respiratory 18 18 18 Rate Blood Pressure 164/78 (mmHg) O2 Sat by Pulse 98 Oximetry 03/10/18 03/10/18 03/10/18 01:58 03:50 03:55 Temperature 98.2 F Pulse Rate 75 83 Respiratory 14 18 16 Rate Blood Pressure 147/70 151/73 (mmHg) O2 Sat by Pulse 97 Oximetry 03/10/18 03/10/18 03/10/18 05:28 07:16 08:00 Temperature 97.7 F Pulse Rate 90 Respiratory 16 16 18 Rate Blood Pressure 152/77 (mmHg) O2 Sat by Pulse 98 Oximetry 03/10/18 03/10/18 03/10/18 09:13 11:29 11:45 Temperature 98.9 F Pulse Rate 90 91 Respiratory 18 16 Rate Blood Pressure 159/77 164/75 (mmHg) O2 Sat by Pulse 99 Oximetry Intake and Output Last 24 Hours 03/08/18 03/09/18 03/10/18 03/11/18 06:59 06:59 06:59 06:59 Intake Total 2395 520 0 0 Output Total 1685 1250 900 350 Balance 710 730 -900 -350 Intake: IV Fluids 1355 LR 1355 Oral 1040 520 0 0 Output: JOVON #1 10 Urine 1200 1250 900 350 Lowe 475 Other: Estimated Void Large Date of Last Bowel 03/08/18 03/09/18 Movement # Bowel Movements 1 1 Estimated Stool Amount Small Medium # Voids 1 Oxygen Devices in Use Now: None Neurology Exam: General: Well nourished man in no acute distress. Wearing a MJC. HEENT: Normocephalic/atraumatic, sclera anicteric, mucous membranes moist Neck: Supple Chest: Clear to auscultation bilaterally Extremities: No clubbing, cyanosis, or edema Tinel's positive at the wrist over the median nerve and at the cubital tunnel over the ulnar nerve on the left. Neurological Findings: Awake, Alert, Oriented x3 Speech: fluent without dysrhythmia, repetition intact Cranial Nerve: PEERL, EOM intact, VFF, no nystagmus, face symmetric bilaterally , facial sensation intact, hearing intact to finger rub bilaterally, palate elevates symmetrically, tongue midline, SCM and Trapezius s/s. Motor: s/s throughout, proximal and distal extremities x4 tone/bulk normal except for 4/5 strength to finger abduction on the left. Sensation: intact to LT/PP bilaterally upper and lower extremities, except for reduced sensation to light touch and pin on digits 1-2 on the left when compared to digits 4 and 5, and 4-5 on the left when compared to the right. Deep Tendon Reflex: 3+ symmetric in the upper/lower extremities, Babinski - down going Finger to nose, rapid alternating movements intact without tremor, no dysdiadochokinesia Result Diagrams: 03/08/18 02:29 Assessment/Plan 1. 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 He will be seeing Dr. Gomez 4-6 weeks post-discharge. Advised him to minimize any wrist or elbow bending/leaning. 2. Nonspecific numbness of the perioral region, face, and bilateral upper extremity- I suspect he may have some damage to the trigeminal nerve contributing to his face numbness. The symptoms started after his teeth extraction and seem to subside after putting his dentures. An EEG recorded some of these symptoms and showed no EEG changes or abnormalities. He is not describing any painful paresthesia; hence, neuropathic medications are not indicated. 3. Mild edentulous dyskinesia- he reports constant licking of his lips when his dentures are off. This is likely a normal benign phenomenon. 4. Cervical spondylosis s/p ACDF - plan to do posterior fusion in the near future. Neurology will sign off. Please contact us for any questions or concerns.
[2018-03-10] MEDS: Atorvastatin* 40 MG TAB PO SCH (17:42)
--- NOTE | 2018-03-10 19:31 | PN ---
Subjective Date of Service: 03/10/18 Interval History: Patient seen and examined at bedside. Denies fever, chills, shortness of breath , chest discomfort, N/V/D. Continues to have intermittent numbness around mouth and in bilateral UE that improves when he has his dentures in place. Also states that when eating meat this evening with dinner that he felt like the food got stuck, but eventually went down. Suspect BP has been elevated today, as he has not received his oral BP medications due to being NPO today. Family History: Unchanged from Admission Social History: Unchanged from Admission Past Medical History: Unchanged from Admission Objective Active Medications: Al Hydrox/Mg Hydrox/Simethicone (Maalox Plus*) 30 ml PO Q6H PRN Reason: INDIGESTION Atorvastatin Calcium (Lipitor*) 40 mg PO QPM [facility] Cyclobenzaprine HCl (Flexeril Tab*) 10 mg PO TID PRN Reason: muscle spasm Diltiazem HCl (Cardizem Cd Cap*) 240 mg PO QAM [facility] Famotidine (Pepcid Tab*) 20 mg PO BID PRN Reason: HEARTBURN Hydralazine HCl (Apresoline Iv*) 5 mg IV SLOW PU Q6H PRN Reason: SBP>150 Hydrochlorothiazide (Hydrodiuril Tab*) 12.5 mg PO QAM [facility] Insulin Human Lispro (Humalog*) 0 units SUBCUT ACHS [facility]; Protocol Magnesium Hydroxide (Milk Of Magnesia Liq*) 30 ml PO DAILY PRN Reason: CONSTIPATION Metoprolol Tartrate (Lopressor Iv*) 5 mg IV Q6H PRN Reason: SBP>150 Mirtazapine (Remeron Tab*) 15 mg PO BEDTIME [facility] Morphine Sulfate (Morphine Vial*) 2 mg IV Q4H PRN Reason: PAIN Omeprazole (Prilosec Cap*) 20 mg PO DAILY@0730 [facility] Ondansetron HCl (Zofran Inj*) 4 mg IV Q6H PRN Reason: NAUSEA/VOMITING Oxycodone HCl (Roxycodone Tab*) 10 mg PO Q4H PRN Reason: PAIN Throat Lozenges (Chloraseptic Afshan*) 1 afshan MT Q6H PRN Reason: SORE THROAT Zolpidem Tartrate (Ambien Tab*) 5 mg PO BEDTIME PRN Reason: SLEEP Vital Signs - 8 hr 03/10/18 03/10/18 03/10/18 11:45 12:45 15:57 Temperature 97.8 F Pulse Rate 86 Respiratory 16 16 16 Rate Blood Pressure 159/74 (mmHg) O2 Sat by Pulse 100 Oximetry Oxygen Devices in Use Now: None Appearance: NAD, sitting up in a chair Ears/Nose/Mouth/Throat: Mucous Membranes Moist Respiratory: Symmetrical Chest Expansion and Respiratory Effort, Clear to Auscultation Cardiovascular: NL Sounds; No Murmurs; No JVD, RRR Abdominal: NL Sounds; No Tenderness; No Distention Extremities: No Edema Skin: No Rash or Ulcers Neurological: Alert and Oriented x 3, NL Muscle Strength and Tone Nutrition: Taking PO's Result Diagrams: 03/08/18 02:29 Assess/Plan/Problems-Billing Assessment: Mr. Bowles is a 62 yo male with PMH significant for CAD, HTN, and DM who was admitted on 03/06/18 for a cervical fusion with Dr. Bill. - Patient Problems (1) S/P cervical spinal fusion Code(s): Z98.1 - ARTHRODESIS STATUS SNOMED Code(s): 4702017843879 Comment: - Management per neurosurgery - Intermittent facial tingling, follow up CT brain negative - Continues to have symptoms of dysphagia (2) Numbness and tingling Code(s): R20.0 - ANESTHESIA OF SKIN; R20.2 - PARESTHESIA OF SKIN SNOMED Code(s ): 265668403179 Comment: - Intermittent issue for 3 years around lips and bilateral UEs, resolves with placement of dentures - Calcium level WNL - Neurology consult, input appreciated (3) Dysphagia Code(s): R13.10 - DYSPHAGIA, UNSPECIFIED SNOMED Code(s): 48563043 Comment: - Esophagram without signs of esophageal tear - Speech Theapy consult - Change diet to mechanical soft, thin liquids (4) CAD (coronary artery disease) Code(s): I25.10 - ATHSCL HEART DISEASE OF [place] CORONARY ARTERY W/O ANG PCTRS SNOMED Code(s): 14598070 Comment: - Asymptomatic - Continue atorvastatin, resume aspirin when approved per neuro surgery (5) Diabetes Code(s): E11.9 - TYPE 2 DIABETES MELLITUS WITHOUT COMPLICATIONS SNOMED Code(s) : 38713806 Comment: - BGs 90-100s - Continue FSBG AC with lispro SS - Resume home meds on discharge (6) HTN (hypertension) Code(s): I10 - ESSENTIAL (PRIMARY) HYPERTENSION SNOMED Code(s): 30485172 Comment: - SBP 150-160s - Continue efforts towards good pain control - Continue diltiazem, hctz and metoprolol IV for SBP > 150 (7) DVT prophylaxis Code(s): IXZ7781 - SNOMED Code(s): 598400524 Comment: - SCDS (8) Full code status Code(s): Z78.9 - OTHER SPECIFIED HEALTH STATUS SNOMED Code(s): 475890879 Status and Disposition: Inpatient with disposition per neurosurgery. Anticipate discharge to home when medically stable. Thank you for this consultation, will continue to follow along. Attending: Joe Campuzano
[2018-03-10] MEDS: Mirtazapine TAB* 15 MG PO SCH (21:55)
--- NOTE | 2018-03-10 23:53 | PN ---
Progress Note - Progress Note Date of Service: 03/10/18 SOAP: Subjective: []]Patient was seen earlier. No events ON. NPO yesterday. Ambulates. Voids. Feels ready to go home. Objective: []VSS, Afebrile. Wound s,c,d. MJ collar. AAOx3, BERNARDO, CN II-XII grossly intact Motor 4-5/5 all extremities Sensory grossly intact to light touch Assessment: [62 yom POD#4 ACDF C4-T1 as stage one procedure for correction of cervical deformity Plan: []Monitor VS, Neurochecks BP control per IM Keep MJ collar at all times OOB with assistance HOB 40-60' swallow study negative for tear. Diet advanced. Neurology evaluation with EEG did not reveal SZ. Will schedule second part possibly this week. Greatly appreciate IM/Neurology consult. Fide Em MD
--- NOTE | 2018-03-11 04:21 | EEG ---
ELECTROENCEPHALOGRAPHY REPORT: DATE OF SERVICE: 03/10/18 - ROOM #[id number] DATE OF READ: 03/10/18 ORDERING PROVIDER: Dr. Joseph Gomez. CLINICAL PROBLEM: Mr. Arthur Bowles is a 62-year-old man with intermittent tingling around the face and arms including the fingers. This EEG was obtained to evaluate for epileptiform abnormalities. MEDICATIONS: 1. Humalog. 2. Prilosec. 3. Cardizem. 4. Lipitor. 5. Remeron. 6. Maalox. 7. Flexeril. 8. Pepcid. 9. Apresoline. 10. Milk of magnesia. 11. Lopressor. 12. Morphine. 13. Zofran. 14. Oxycodone. 15. Ambien. CLINICAL STATE: Awake and drowsy. REPORT: The waking background showed appropriate organization with clearly defined anterior-posterior voltage and frequency gradients. There was a well- defined posterior dominant rhythm of 8.5 Hz, which was symmetric and showed normal reactivity. Anteriorly, there was an expected pattern lower voltage irregular mixed faster frequencies. Attenuation of the occipital rhythm accompanied drowsiness. Sleep state was not recorded during this EEG. Of note, the patient reported, "lips are numb, left pinky finger twitching, lips are throbbing, and left arm is tingling."." There were no EEG changes or epileptiform abnormalities during this event. He also complained about this a few times during the recording with no EEG correlation in either time. A single electrode EKG showed normal sinus rhythm at the rate of 70 beats per minute. CLINICAL IMPRESSION: This is a normal wake and drowsy EEG with no evidence of epileptiform discharges or electrographic seizures. The patient reported, " lips are numb, left pinky finger twitching, lips are throbbing, and left arm is tingling." There were no EEG correlate or epileptiform discharges during his symptoms. Therefore these symptoms are nonepileptic and likely related to a peripheral or functional etiology. [id number]/[facility] #: [id number] [facility]
[2018-03-11] MEDS: Insulin LISPRO* 1 UNITS UNIT SUBCUT SCH ×4 (07:31→21:13)
[2018-03-11] MEDS: Omeprazole CAP* 20 MG PO SCH (07:43)
[2018-03-11] MEDS: Diltiazem CD CAP* 240 MG PO SCH (07:43)
[2018-03-11] MEDS: Hydrochlorothiazide TAB* 25 MG PO SCH (07:43)
[2018-03-11] MEDS: oxyCODONE TAB* 5 MG TAB PO PRN ×2 (07:44→15:55)
[2018-03-11] MEDS: Benzocaine/Menthol LOZ* 1 LOZENGE MT PRN (07:44)
[2018-03-11] MEDS: Atorvastatin* 40 MG TAB PO SCH (17:13)
[2018-03-11] MEDS: Magnesium Hydroxide LIQ* 30 ML UDC PO PRN (18:30)
[2018-03-11] MEDS: Mirtazapine TAB* 15 MG PO SCH (21:13)
--- NOTE | 2018-03-11 22:05 | PN ---
Subjective Date of Service: 03/11/18 Interval History: patient continue to report lip smacking and left 5th finger jerking, unchanged . denies chest pain or shortness of breath. denies n/v/d. denies abd pain. Family History: Unchanged from Admission Social History: Unchanged from Admission Past Medical History: Unchanged from Admission Objective Active Medications: Al Hydrox/Mg Hydrox/Simethicone (Maalox Plus*) 30 ml PO Q6H PRN PRN Reason: INDIGESTION Last Admin: 03/08/18 02:36 Dose: 30 ml Atorvastatin Calcium (Lipitor*) 40 mg PO QPM [facility] Last Admin: 03/11/18 17:13 Dose: 40 mg Cyclobenzaprine HCl (Flexeril Tab*) 10 mg PO TID PRN PRN Reason: muscle spasm Last Admin: 03/07/18 13:30 Dose: 10 mg Diltiazem [facility] (Cardizem Cd Cap*) [facility] Last Admin: 03/11/18 07:43 Dose: 240 mg Docusate Sodium (Colace Cap*) 100 mg PO BID PRN PRN Reason: CONSTIPATION Famotidine (Pepcid Tab*) 20 mg PO BID PRN PRN Reason: HEARTBURN Hydralazine HCl (Apresoline Iv*) 5 mg IV SLOW PU Q6H PRN PRN Reason: SBP>150 Last Admin: 03/10/18 22:27 Dose: 5 mg Hydrochlorothiazide (Hydrodiuril Tab*) 12.[facility] Last Admin: 03/11/18 07:43 Dose: 12.5 mg Insulin Human Lispro (Humalog*) 0 units SUBCCAPE [facility]; Protocol Last Admin: 03/11/18 21:13 Dose: 2 units Magnesium Hydroxide (Milk Of Magnesia Liq*) 30 ml PO DAILY PRN PRN Reason: CONSTIPATION Last Admin: 03/11/18 18:30 Dose: 30 ml Metoprolol Tartrate (Lopressor Iv*) 5 mg IV Q6H PRN PRN Reason: SBP>150 Last Admin: 03/10/18 11:49 Dose: 5 mg Mirtazapine (Remeron Tab*) 15 mg PO BEDTIME [facility] Last Admin: 03/11/18 21:13 Dose: 15 mg Morphine Sulfate (Morphine Vial*) 2 mg IV Q4H PRN PRN Reason: PAIN Last Admin: 03/10/18 11:45 Dose: 2 mg Omeprazole (Prilosec Cap*) 20 mg PO DAILY@0730 [facility] Last Admin: 03/11/18 07:43 Dose: 20 mg Ondansetron HCl (Zofran Inj*) 4 mg IV Q6H PRN PRN Reason: NAUSEA/VOMITING Oxycodone HCl (Roxycodone Tab*) 10 mg PO Q4H PRN PRN Reason: PAIN Last Admin: 03/11/18 15:55 Dose: 10 mg Throat Lozenges (Chloraseptic Afshan*) 1 afshan MT Q6H PRN PRN Reason: SORE THROAT Last Admin: 03/11/18 07:44 Dose: 1 afshan Zolpidem Tartrate (Ambien Tab*) 5 mg PO BEDTIME PRN PRN Reason: SLEEP Last Admin: 03/06/18 23:10 Dose: 5 mg Vital Signs - 8 hr 03/11/18 03/11/18 03/11/18 15:50 15:55 18:04 Temperature 97.5 F Pulse Rate 67 Respiratory 18 18 18 Rate Blood Pressure 160/72 (mmHg) O2 Sat by Pulse 100 Oximetry 03/11/18 03/11/18 03/11/18 18:18 19:09 20:05 Temperature 97.8 F 98.1 F Pulse Rate 78 84 Respiratory 18 18 20 Rate Blood Pressure 168/74 146/80 (mmHg) O2 Sat by Pulse 100 97 Oximetry Oxygen Devices in Use Now: None Appearance: appears comfortable sitting in bed, no acute distress Eyes: No Scleral Icterus Ears/Nose/Mouth/Throat: Clear Oropharnyx, Mucous Membranes Moist Neck: NL Appearance and Movements; NL JVP, Trachea Midline Respiratory: Symmetrical Chest Expansion and Respiratory Effort, Clear to Auscultation Cardiovascular: NL Sounds; No Murmurs; No JVD, No Edema Abdominal: NL Sounds; No Tenderness; No Distention Extremities: No Edema, No Clubbing, Cyanosis Skin: No Rash or Ulcers Neurological: Alert and Oriented x 3 Nutrition: Taking PO's Result Diagrams: 03/08/18 02:29 Assess/Plan/Problems-Billing Assessment: Mr. Bowles is a 62 yo male with PMH significant for CAD, HTN, and DM who was admitted on 03/06/18 for a cervical fusion with Dr. Bill. - Patient Problems (1) S/P cervical spinal fusion Current Visit: Yes Status: Acute Code(s): Z98.1 - ARTHRODESIS STATUS SNOMED Code(s): 3792373973398 Comment: - Management per neurosurgery - Intermittent facial tingling, follow up CT brain negative - Continues to have symptoms of dysphagia - espohagram - normal (2) CAD (coronary artery disease) Current Visit: Yes Status: Acute Code(s): I25.10 - ATHSCL HEART DISEASE OF [place] CORONARY ARTERY W/O ANG PCTRS SNOMED Code(s): 17236950 Comment: - Asymptomatic - Continue atorvastatin, resume aspirin when approved by neuro surgery (3) Dysphagia Current Visit: Yes Status: Acute Code(s): R13.10 - DYSPHAGIA, UNSPECIFIED SNOMED Code(s): 68636216 Comment: - Esophagram without signs of esophageal tear - Speech Theapy consulted recommended -continue mechanical soft, thin liquids diet, exra liquids (4) Numbness and tingling Current Visit: Yes Status: Acute Code(s): R20.0 - ANESTHESIA OF SKIN; R20.2 - PARESTHESIA OF SKIN SNOMED Code(s): 676465735522 Comment: - Intermittent issue for 3 years around lips and bilateral UEs, resolves with placement of dentures - Calcium level WNL - Neurology consult, input appreciated (5) Diabetes Current Visit: No Status: Acute Code(s): E11.9 - TYPE 2 DIABETES MELLITUS WITHOUT COMPLICATIONS SNOMED Code(s): 51393033 Comment: - BGs 111-148 - Continue FSBG AC with lispro SS - Resume home meds on discharge (6) HTN (hypertension) Current Visit: No Status: Acute Code(s): I10 - ESSENTIAL (PRIMARY) HYPERTENSION SNOMED Code(s): 94768592 Comment: - SBP 146-168 - Continue efforts towards good pain control - Continue diltiazem, hctz and metoprolol IV for SBP > 150 (7) DVT prophylaxis Current Visit: Yes Status: Acute Code(s): GCP8873 - SNOMED Code(s): 200622580 Comment: - SCDS (8) Full code status Current Visit: Yes Status: Acute Code(s): Z78.9 - OTHER SPECIFIED HEALTH STATUS SNOMED Code(s): 631199243 Comment: Status and Disposition: Inpatient with disposition per neurosurgery. Anticipate discharge to home when medically stable. Thank you for this consultation, will continue to follow along.
[2018-03-12 05:07] LABS: Hematocrit 39 % (42-52); Hemoglobin 13.2 g/dl (14.0-18.0); Mean Corpuscular HGB Conc 34 g/dl (31-36); Mean Corpuscular Hemoglobin 30 pg (27-31); Mean Corpuscular Volume 89 fL (80-94); Mean Platelet Volume 8.4 fL (7.4-10.4); Platelet Count 239 10^3/ul (150-450); Red Blood Count 4.36 10^6/ul (4.00-5.40); Red Cell Distribution Width 14 % (10.5-15); White Blood Count 7.6 10^3/ul (3.5-10.8)
[2018-03-12 05:26] LABS: EGFR Non-African American 113.5 (>60)
--- NOTE | 2018-03-12 08:03 | PN ---
Progress Note - Progress Note Date of Service: 03/11/18 SOAP: Delayed Entry Subjective: []Patient was seen late last night. No events ON. Tolerates PO well. Ambulates. Voids. MJ collar. Objective: []VSS, Afebrile. Wound s,c,d. MJ collar. AAOx3, BERNARDO, CN II-XII grossly intact Motor 4-5/5 all extremities Sensory grossly intact to light touch Assessment: []62 yom POD#5 ACDF C4-T1 as stage one procedure for correction of cervical deformity Plan: [] Monitor VS, Neurochecks BP control per IM Keep MJ collar at all times OOB with assistance HOB 40-60' OR for posterior arthrodesis as the second part surgical intervention scheduled for tomorrow . NPO after midnight. Greatly appreciate IM/Neurology consult. Fide Em MD
[2018-03-12] MEDS: Insulin LISPRO* 1 UNITS UNIT SUBCUT SCH ×4 (08:46→21:07)
[2018-03-12] MEDS: Diltiazem CD CAP* 240 MG PO SCH (09:59)
[2018-03-12] MEDS: Hydrochlorothiazide TAB* 25 MG PO SCH (09:59)
[2018-03-12] MEDS: Omeprazole CAP* 20 MG PO SCH (09:59)
[2018-03-12] MEDS: Magnesium Hydroxide LIQ* 30 ML UDC PO PRN (10:05)
[2018-03-12] MEDS: Docusate CAP* 100 MG PO PRN (10:05)
[2018-03-12] MEDS: oxyCODONE TAB* 5 MG TAB PO PRN ×3 (10:16→21:06)
--- NOTE | 2018-03-12 15:08 | PN ---
Subjective Date of Service: 03/12/18 Interval History: Mr. Bowles is feeling ok today. He is anxious about surgery tomorrow and he is concerned about the risk of blindness. He reports his pain is well controlled on current medications. Continues to have some facial numbness and left arm numbness. He denies CP, SOB, N/V/D, dizziness. Reports constipation. Family History: Unchanged from Admission Social History: Unchanged from Admission Past Medical History: Unchanged from Admission Objective Active Medications: Al Hydrox/Mg Hydrox/Simethicone (Maalox Plus*) 30 ml PO Q6H PRN INDIGESTION Atorvastatin Calcium (Lipitor*) 40 mg PO QPM [facility] Cyclobenzaprine HCl (Flexeril Tab*) 10 mg PO TID PRN muscle spasm Diltiazem HCl (Cardizem Cd Cap*) 240 mg PO QAM [facility] Docusate Sodium (Colace Cap*) 100 mg PO BID PRN CONSTIPATION Famotidine (Pepcid Tab*) 20 mg PO BID PRN HEARTBURN Hydralazine HCl (Apresoline Iv*) 5 mg IV SLOW PU Q6H PRN SBP>150 Hydrochlorothiazide (Hydrodiuril Tab*) 12.5 mg PO QAM [facility] Insulin Human Lispro (Humalog*) 0 units SUBCUT ACHS [facility]; Protocol Magnesium Hydroxide (Milk Of Magnesia Liq*) 30 ml PO DAILY PRN CONSTIPATION Metoprolol Tartrate (Lopressor Iv*) 5 mg IV Q6H PRN SBP>150 Mirtazapine (Remeron Tab*) 15 mg PO BEDTIME [facility] Morphine Sulfate (Morphine Vial*) 2 mg IV Q4H PRN PAIN Omeprazole (Prilosec Cap*) 20 mg PO DAILY@0730 [facility] Ondansetron HCl (Zofran Inj*) 4 mg IV Q6H PRN NAUSEA/VOMITING Oxycodone HCl (Roxycodone Tab*) 10 mg PO Q4H PRN PAIN Throat Lozenges (Chloraseptic Afshan*) 1 afshan MT Q6H PRN SORE THROAT Zolpidem Tartrate (Ambien Tab*) 5 mg PO BEDTIME PRN SLEEP Vital Signs - 8 hr 03/12/18 03/12/18 03/12/18 07:10 07:45 10:16 Temperature 98.0 F Pulse Rate 59 Respiratory 16 17 16 Rate Blood Pressure 127/60 (mmHg) O2 Sat by Pulse 100 Oximetry 03/12/18 03/12/18 11:08 12:28 Temperature 98.2 F Pulse Rate 58 Respiratory 16 18 Rate Blood Pressure 122/59 (mmHg) O2 Sat by Pulse 96 Oximetry Oxygen Devices in Use Now: None Appearance: Middle-aged male sitting in chair in NAD; [place] J collar in place Eyes: No Scleral Icterus Ears/Nose/Mouth/Throat: Mucous Membranes Moist Neck: NL Appearance and Movements; NL JVP, Trachea Midline Respiratory: Symmetrical Chest Expansion and Respiratory Effort, Clear to Auscultation Cardiovascular: NL Sounds; No Murmurs; No JVD, RRR Abdominal: NL Sounds; No Tenderness; No Distention Extremities: No Edema Skin: No Rash or Ulcers Neurological: Alert and Oriented x 3, NL Muscle Strength and Tone Lines/Tubes/Other Access: Clean, Dry and Intact Peripheral IV Nutrition: Taking PO's Result Diagrams: 03/12/18 04:34 03/12/18 04:34 Assess/Plan/Problems-Billing Assessment: Mr. Bowles is a 62 yo male with PMH significant for CAD, HTN, and DM who was admitted on 03/06/18 for a cervical fusion with Dr. Bill. - Patient Problems (1) S/P cervical spinal fusion Current Visit: Yes Status: Acute Code(s): Z98.1 - ARTHRODESIS STATUS SNOMED Code(s): 3423162871866 Comment: - Management per neurosurgery - Intermittent facial tingling, follow up CT brain negative - Continues to have symptoms of dysphagia; espohagram normal - OR tomorrow for 2nd phase of surgery (2) Dysphagia Current Visit: Yes Status: Acute Code(s): R13.10 - DYSPHAGIA, UNSPECIFIED SNOMED Code(s): 92109848 Comment: - Esophagram without signs of esophageal tear - Speech therapy consulted - Continue mechanical soft, thin liquids diet, exra liquids per recommendations (3) Numbness and tingling Current Visit: Yes Status: Acute Code(s): R20.0 - ANESTHESIA OF SKIN; R20.2 - PARESTHESIA OF SKIN SNOMED Code(s): 853428393104 Comment: - Intermittent issue for 3 years around lips and bilateral UEs, resolves with placement of dentures - Calcium level WNL - No changes noted on EEG - Neurology consulted; will need oupt follow up (4) Diabetes Current Visit: No Status: Acute Code(s): E11.9 - TYPE 2 DIABETES MELLITUS WITHOUT COMPLICATIONS SNOMED Code(s): 43050298 Comment: - BGs 100-140s - Continue FSBG AC with lispro SS - Resume home meds on discharge (5) HTN (hypertension) Current Visit: No Status: Acute Code(s): I10 - ESSENTIAL (PRIMARY) HYPERTENSION SNOMED Code(s): 91902872 Comment: - SBP 120s - Continue efforts towards good pain control - Continue diltiazem, HCTZ and metoprolol IV for SBP > 150 (6) CAD (coronary artery disease) Current Visit: Yes Status: Acute Code(s): I25.10 - ATHSCL HEART DISEASE OF [place] CORONARY ARTERY W/O ANG PCTRS SNOMED Code(s): 37121373 Comment: - Asymptomatic - Continue atorvastatin - Resume aspirin when approved by neuro surgery (7) DVT prophylaxis Current Visit: Yes Status: Acute Code(s): ZHM0225 - SNOMED Code(s): 365197302 Comment: - SCDS (8) Full code status Current Visit: Yes Status: Acute Code(s): Z78.9 - OTHER SPECIFIED HEALTH STATUS SNOMED Code(s): 745399242 Status and Disposition: Inpatient with disposition per neurosurgery. Anticipate discharge to home when medically stable. Thank you for this consultation, will continue to follow along. Attending: Uzma Bennett
[2018-03-12] MEDS: Atorvastatin* 40 MG TAB PO SCH (18:19)
--- NOTE | 2018-03-12 20:53 | PN ---
Progress Note - Progress Note Date of Service: 03/12/18 SOAP: Subjective: []No events ON. Tolerates PO well. Ambulates. Voids. MJ collar. Objective: []VSS, Afebrile. Wound s,c,d. MJ collar. AAOx3, BERNARDO, CN II-XII grossly intact Motor 4-5/5 all extremities Sensory grossly intact to light touch Assessment: []62 yom POD#6 ACDF C4-T1 as stage one procedure for correction of cervical deformity Plan: []Monitor VS, Neurochecks BP control per IM Keep MJ collar at all times OOB with assistance HOB 40-60' OR for posterior arthrodesis as the second part surgical intervention tomorrow. NPO after midnight. Discussed again in extend with patient regarding operative plan, expectations, limitations, indications and possible complications, with complications including but not limited to bleeding, infection, risk of injury to adjacent structures, coma, paralysis, , need for additional procedures, stroke, blindness, cancer, instability, adjacent level disease, pseudoarthrosis, hardware failure, hardware malposition, need for revision, vertebral artery or other vascular structures injury, decrease of mobility, need for prolonged ICU stay, need for tracheostomy or gastrostomy, junctional kyphosis, anesthesia risks. Patient understands and would like to proceed with surgery. He understands that his condition may not improve and in fact may get worse and that he may need additional procedures in the future. He also understands the operative plan may be modified according to intraoperative findings and conditions and that procedure may be abandoned or done in more than one stages. Greatly appreciate IM/Neurology consult. Fide Em MD
[2018-03-12] MEDS: Mirtazapine TAB* 15 MG PO SCH (21:08)
[2018-03-13] MEDS ORDERED: NS 0.9% 1000 ML* 1,000 ML IV SCH
[2018-03-13] MEDS ORDERED: PROCHLORPERAZINE INJ 5 MG/ML 2 ML VIAL IV PRN (05:51)
[2018-03-13] MEDS ORDERED: fentaNYL* 50 MCG/ML 2 ML VIAL (100 MCG VIAL) IV PRN (05:51)
[2018-03-13] MEDS ORDERED: DiMENhydriNATE IV* 50 MG/ML VIAL IV PUSH PRN (05:51)
[2018-03-13] MEDS ORDERED: Naloxone* 0.4 MG/ML 1 ML VIAL IV PRN (05:51)
[2018-03-13 07:03] LABS: ABS Basophils 0 10^3/ul (0-0.2); ABS Eosinophils 0.2 10^3/ul (0-0.6); ABS Lymphocytes 1.3 10^3/ul (1.0-4.8); ABS Monocytes 0.8 10^3/ul (0-0.8); ABS Neutrophils 6.2 10^3/ul (1.5-7.7); ABS Nucleated RBC 0 10^3/ul; Eosinophil % 2.6 %; Hematocrit 40 % (42-52); Hemoglobin 13.6 g/dl (14.0-18.0); Lymphocyte % 15.4 %; Mean Corpuscular HGB Conc 34 g/dl (31-36); Mean Corpuscular Hemoglobin 31 pg (27-31); Mean Corpuscular Volume 89 fL (80-94); Mean Platelet Volume 8.7 fL (7.4-10.4); Nucleated Red Blood Cells % 0.1; Platelet Count 229 10^3/ul (150-450); Red Blood Count 4.44 10^6/ul (4.00-5.40); Red Cell Distribution Width 14 % (10.5-15); White Blood Count 8.6 10^3/ul (3.5-10.8)
[2018-03-13] MEDS ORDERED: KETAMINE HCL* 50 MG/ML 10 ML VIAL ONE ×2 (07:13→10:12)
[2018-03-13] MEDS ORDERED: fentaNYL* 50 MCG/ML 5 ML VIAL (250 MCG VIAL) ONE ×5 (07:13→15:27)
[2018-03-13] MEDS ORDERED: Midazolam* 1 MG/ML 10 ML VIAL (10 MG) ONE ×3 (07:13→10:55)
[2018-03-13 07:15] LABS: INR 1.03 (0.77-1.02)
[2018-03-13 07:20] LABS: EGFR Non-African American 94.6 (>60)
[2018-03-13] MEDS: Insulin LISPRO* 1 UNITS UNIT SUBCUT SCH ×4 (07:30→22:13)
[2018-03-13] MEDS: Omeprazole CAP* 20 MG PO SCH (07:30)
[2018-03-13] MEDS ORDERED: ceFAZolin 2 GM PREMIX in ORs 2 GM/50 ML BAG IVPB ONE (07:45)
[2018-03-13] MEDS ORDERED: Famotidine IV* 10 MG/ML 2 ML (20 mg) ONE (09:41)
[2018-03-13] MEDS: Diltiazem CD CAP* 240 MG PO SCH (09:42)
[2018-03-13] MEDS: Hydrochlorothiazide TAB* 25 MG PO SCH (09:43)
[2018-03-13] MEDS ORDERED: Propofol* 1,000 MG/100 ML BTL ONE (14:55)
[2018-03-13] MEDS ORDERED: Propofol* 10 MG/ML 20 ML BTL ONE (14:55)
[2018-03-13] MEDS ORDERED: Lidocaine 2% PF * 5 ML VIAL ONE (14:55)
[2018-03-13] MEDS ORDERED: Phenylephrine INJ* 10 MG/ML 1 ML VIAL (10 MG) ONE (14:55)
[2018-03-13] MEDS ORDERED: ceFAZolin 1 GM VIAL(*) ONE (14:55)
--- NOTE | 2018-03-13 16:35 | PN ---
Hospitalist Progress Note Date of Service: 03/13/18 Patient was not seen today as he has been in the OR all day. Will round tomorrow morning.
[2018-03-13] MEDS ORDERED: Labetalol IV* 5 MG/ML 20 ML VIAL ONE (17:23)
[2018-03-13] MEDS: Atorvastatin* 40 MG TAB PO SCH (18:02)
[2018-03-13] MEDS ORDERED: Flumazenil* 0.1 MG/ML 5 ML MDV ONE (18:27)
[2018-03-13] MEDS ORDERED: Morphine VIAL* 4 MG/ML VIAL (1 ml vial) ONE ×2 (19:17→19:35)
[2018-03-13] MEDS: Morphine VIAL* 4 MG/ML VIAL (1 ml vial) IV PRN ×5 (19:17→23:55)
[2018-03-13] MEDS ORDERED: fentaNYL* 50 MCG/ML 2 ML VIAL (100 MCG VIAL) ONE (19:36)
[2018-03-13] MEDS ORDERED: PROCHLORPERAZINE INJ 5 MG/ML 2 ML VIAL ONE (19:44)
[2018-03-13] MEDS: Mirtazapine TAB* 15 MG PO SCH (22:14)
[2018-03-14] MEDS: Metoprolol Tartrate IV* 1 MG/ML 5 ML VIAL IV PRN (01:22)
[2018-03-14] MEDS: hydrALAZINE IV* 20 MG/ML VIAL IV SLOW PU PRN (02:52)
[2018-03-14] MEDS: Morphine VIAL* 4 MG/ML VIAL (1 ml vial) IV PRN ×2 (04:14→09:32)
--- NOTE | 2018-03-14 08:20 | PN ---
Progress Note - Progress Note Date of Service: 03/14/18 SOAP: Subjective: [S/p posterior cervical fusion C2-T2 and decompression, POD #1. S/p anterior cervical fusion 03/06. Reports significant neck pain this morning. Mild discomfort with swallowing. [place] J collar in place. Reports LUE numbness/tingling. Has been up out of bed. ] Objective: [ Vital Signs: Temp Pulse Resp BP Pulse Ox 97.7 F 78 16 157/73 97 03/14/18 07:19 03/14/18 07:19 03/14/18 07:19 03/14/18 07:19 03/14/18 07:19 General: Alert, sitting up in bed, NAD. Neuro: Motor and sensory intact. Incision: Intact, no swelling. Drain functioning well. Wound drain output 03/13/18 03/14/18 03/14/18 23:00 01:16 02:30 Output, JOVON #1 90 40 20 03/14/18 03/14/18 03/14/18 04:16 05:58 08:29 Output, JOVON #1 47 30 20 ] Assessment: [Stable post-op] Plan: [1. Continue pain management 2. PT and OT evaluations]
[2018-03-14] MEDS: Hydrochlorothiazide TAB* 25 MG PO SCH (09:24)
[2018-03-14] MEDS: Diltiazem CD CAP* 240 MG PO SCH (09:24)
[2018-03-14] MEDS: Omeprazole CAP* 20 MG PO SCH (09:24)
[2018-03-14] MEDS: Insulin LISPRO* 1 UNITS UNIT SUBCUT SCH ×4 (09:32→21:42)
--- NOTE | 2018-03-14 11:33 | PN ---
Subjective Date of Service: 03/14/18 Interval History: Mr. Bowles is having significant pain since surgery yesterday. He has continued to have difficulty with tasks like eating, due to the presence of a [place] J collar. He continues to have some pain in his left arm and left leg, though notes this is chronic for him and not any worse than normal. He has been up ambulating once. Still has not had a BM. Requests suppository or enema as he has used these in the past with good results. Denies CP, SOB, N/V/D. Family History: Unchanged from Admission Social History: Unchanged from Admission Past Medical History: Unchanged from Admission Objective Active Medications: Al Hydrox/Mg Hydrox/Simethicone (Maalox Plus*) 30 ml PO Q6H PRN INDIGESTION Atorvastatin Calcium (Lipitor*) 40 mg PO QPM [facility] Cyclobenzaprine HCl (Flexeril Tab*) 10 mg PO TID PRN muscle spasm Diltiazem HCl (Cardizem Cd Cap*) 240 mg PO QAM [facility]IS[facility] Docusate Sodium (Colace Cap*) 100 mg PO BID PRN CONSTIPATION Famotidine (Pepcid Tab*) 20 mg PO BID PRN HEARTBURN Hydralazine HCl (Apresoline Iv*) 5 mg IV SLOW PU Q6H PRN SBP>150 Hydrochlorothiazide (Hydrodiuril Tab*) 12.5 mg PO QAM [facility] Insulin Human Lispro (Humalog*) 0 units SUBCUT ACHS [facility]; Protocol Magnesium Hydroxide (Milk Of Magnesia Liq*) 30 ml PO DAILY PRN CONSTIPATION Metoprolol Tartrate (Lopressor Iv*) 5 mg IV Q6H PRN SBP>150 Mirtazapine (Remeron Tab*) 15 mg PO BEDTIME [facility] Morphine Sulfate (Morphine Vial*) 2 mg IV Q4H PRN PAIN Omeprazole (Prilosec Cap*) 20 mg PO DAILY@0730 [facility] Ondansetron HCl (Zofran Inj*) 4 mg IV Q6H PRN NAUSEA/VOMITING Oxycodone HCl (Roxycodone Tab*) 10 mg PO Q4H PRN PAIN Throat Lozenges (Chloraseptic Afshan*) 1 afshan MT Q6H PRN SORE THROAT Zolpidem Tartrate (Ambien Tab*) 5 mg PO BEDTIME PRN SLEEP Vital Signs - 8 hr 12/14/18 12/14/18 12/14/18 04:14 06:00 07:19 Temperature 97.7 F Pulse Rate 78 Respiratory 18 18 16 Rate Blood Pressure 157/73 (mmHg) O2 Sat by Pulse 97 Oximetry 03/14/18 03/14/18 09:32 09:45 Temperature Pulse Rate Respiratory 18 18 Rate Blood Pressure (mmHg) O2 Sat by Pulse 97 Oximetry Oxygen Devices in Use Now: None Appearance: Middle-aged male sitting in chair in NAD; Com[place] J collar in place Eyes: No Scleral Icterus Ears/Nose/Mouth/Throat: Mucous Membranes Moist Respiratory: Symmetrical Chest Expansion and Respiratory Effort, Clear to Auscultation Cardiovascular: NL Sounds; No Murmurs; No JVD, RRR Abdominal: NL Sounds; No Tenderness; No Distention Extremities: No Edema Skin: No Rash or Ulcers, - - Surgical dressing to cervical spine Neurological: Alert and Oriented x 3 Lines/Tubes/Other Access: Clean, Dry and Intact Peripheral IV Nutrition: Taking PO's Result Diagrams: 03/13/18 06:26 03/13/18 06:26 Assess/Plan/Problems-Billing Assessment: Mr. Bowles is a 62 yo male with PMH significant for CAD, HTN, and DM who was admitted for a cervical fusion with Dr. Bill. Underwent anterior cervical fusion 03/06 and posterior fusion 03/13. - Patient Problems (1) S/P cervical spinal fusion Current Visit: Yes Status: Acute Code(s): Z98.1 - ARTHRODESIS STATUS SNOMED Code(s): 8427210067796 Comment: - Management per neurosurgery - Intermittent facial tingling, follow up CT brain negative - Continues to have symptoms of dysphagia; espohagram normal - PT/OT (2) Dysphagia Current Visit: Yes Status: Acute Code(s): R13.10 - DYSPHAGIA, UNSPECIFIED SNOMED Code(s): 85698688 Comment: - Esophagram without signs of esophageal tear - Speech therapy consulted - Continue mechanical soft, thin liquids diet, exra liquids per recommendations (3) Numbness and tingling Current Visit: Yes Status: Acute Code(s): R20.0 - ANESTHESIA OF SKIN; R20.2 - PARESTHESIA OF SKIN SNOMED Code(s): 879254552251 Comment: - Intermittent issue for 3 years around lips and bilateral UEs, resolves with placement of dentures - Calcium level WNL - No changes noted on EEG - Neurology consulted; will need oupt follow up (4) Diabetes Current Visit: No Status: Acute Code(s): E11.9 - TYPE 2 DIABETES MELLITUS WITHOUT COMPLICATIONS SNOMED Code(s): 61688143 Comment: - BGs 120-190s - Continue FSBG AC with lispro SS - Resume home meds on discharge (5) HTN (hypertension) Current Visit: No Status: Acute Code(s): I10 - ESSENTIAL (PRIMARY) HYPERTENSION SNOMED Code(s): 45633713 Comment: - SBP 150-160s - Continue efforts towards good pain control - Continue diltiazem, metoprolol PRN, hydralazine PRN; increase HCTZ to 25mg (6) CAD (coronary artery disease) Current Visit: Yes Status: Acute Code(s): I25.10 - ATHSCL HEART DISEASE OF [place] CORONARY ARTERY W/O ANG PCTRS SNOMED Code(s): 01235607 Comment: - Asymptomatic - Continue atorvastatin - Resume aspirin when approved by neuro surgery (7) DVT prophylaxis Current Visit: Yes Status: Acute Code(s): WNK2770 - SNOMED Code(s): 894697077 Comment: - SCDS (8) Full code status Current Visit: Yes Status: Acute Code(s): Z78.9 - OTHER SPECIFIED HEALTH STATUS SNOMED Code(s): 036568088 Status and Disposition: Inpatient with disposition per neurosurgery. Thank you for this consultation. We will continue to follow along. Attending: Uzma Bennett
[2018-03-14] MEDS ORDERED: Bisacodyl SUPP* 10 MG SUPP PR PRN (13:02)
[2018-03-14] MEDS: oxyCODONE TAB* 5 MG TAB PO PRN ×3 (13:34→23:29)
--- NOTE | 2018-03-14 13:53 | OP ---
DATE OF OPERATION: 03/13/18 - ROOM #331 DATE OF : 51 SURGEON: Emory Em MD LICENSING WORKER SURGEON: Kehinde Doll MD LICENSING WORKER: DONY Mcclure ANESTHESIA: General. PRE-OP DIAGNOSIS: Degenerative disk disease and cervical kyphosis. POST-OP DIAGNOSIS: Degenerative disk disease and cervical kyphosis. OPERATIVE PROCEDURE: The patient underwent posterior decompression and fusion as part 2 of a cervical deformity correction with C2-T2 arthrodesis; C2-T1 laminectomies; C2 pars screws; C3, C4, C5, C6 lateral mass screws; T1 and T2 pedicle screws bilaterally with partial facetectomies at C2-3, C3-4, C4-5, C5-6 , C6- 7, T1-T2, and complete facetectomy (Odette osteotomy) at C7-T1 with locally harvested bone graft, DBX putty, and intraoperative navigation and intraoperative monitoring. ESTIMATED BLOOD LOSS: 350 cc. COMPLICATIONS: None. SUMMARY: The patient is a very pleasant 62-year-old gentleman with complaints of neck pain and upper extremity pain with a diagnosis of cervical spondylosis, degenerative disk disease, and cervical kyphosis with [id number] deformity. After failing conservative treatment modalities, he was offered the option of cervical decompression and kyphosis correction in two stages. The patient recently underwent a 4-level anterior cervical diskectomy and fusion C4 through T1 and now returns for the second stage as planned for a posterior cervical decompression and fusion. After all expectations, limitations, and possible complications of the procedure had been explained in details to the patient and his family including his daughter and his son with complications including but not limited to bleeding, infection, risk of injury to adjacent structures, paralysis, , need for additional procedure, anesthesia risks, stroke, blindness, cancer, instability, hardware failure, adjacent level disease, pseudoarthrosis, hardware malposition, spinal fluid leak, need for tracheostomy or gastrostomy, anesthesia risk, the patient was agreeable to proceed with surgery. Informed consent was obtained. He understood that his condition may not improve and in fact may get worse after the surgery and that he may need to have additional procedures in the future. He also understood that operative plan may be modified according to intraoperative findings and conditions and that his case may be abandoned or performed in more than one stage. DESCRIPTION OF PROCEDURE: The patient was brought to the operating room, was placed under general anesthesia by the anesthesia team. He was carefully positioned prone on the Anant table and all bony prominences were meticulously padded. His skin was prepped and draped in the standard fashion and after appropriate surgical pause and patient identification, a midline incision was marked on the skin and was infiltrated with local anesthetic. Incision was carried down to the subcutaneous tissue with Bovie cautery and the dorsal fascia was divided in both sides of midline with Bovie cautery. The paraspinal musculature was elevated in subperiosteal fashion with Bovie cautery and periosteal elevators, the spinous process of the lamina, and to the facets of C2-C7 as well as the spinous process of the lamina and transverse process of T1, T2, and the superior part of T3. Then, partial facetectomies were performed at the C2-3, C3-4, C4-5, C5- 6, and C6-7 level and the defect was filled with DBX putty. The entry point from the lateral mass screws was marked and performed with a high-speed drill. A hand- held drill was used to create a trajectory for the lateral mass screws and Atbrox 3.5 x 12 mm screws were placed in all levels. Then, attention was brought to perform the instrumentation at the upper thoracic spine. The navigation was started, was secured over the spinous process of T3 and intraoperative OR imaging was obtained. High-speed drill was used to identify the entry point for the pedicles of T1 and T2 bilaterally and after cannulating the pedicles, pedicle screws were placed with 3.5 x 22 mm screws for the T1 and 3.5 x 24 mm screws for the T2 levels. Then, attention was brought to set the pars screws at the C2. A navigation clamp was secured over the spinous process of C2 and intraoperative OR imaging was again obtained and this confirmed excellent placement of all hardware. Of note, the C3 and right C6 lateral mass screws were redirected slightly prior to the second pin. The entry point of the C2 pars screws was then identified with intraoperative navigation and the high- speed drill was used to perforate the cortex while the hand-held drill was used to create a trajectory of the pars screw. The 3.5 x 16 mm screws were used bilaterally and intraoperative OR imaging confirmed excellent placement of all hardware. High-speed drill was used to perform a near-complete facetectomy at C7-T1 in order to perform a Odette osteotomy. Then, attention was brought to perform the laminectomies. High-speed drill was used to fashion laminectomies between the superior portion of the T1 to the inferior portion of T2. The laminectomy was completed with the use of Kerrison punches. After completion of the laminectomy, the thecal sac was found to be completely free of any pressure phenomenon and the spinal cord was pulsating nicely. After copious irrigation and confirmation of meticulous hemostasis, 2 titanium rods were placed to connect the screw head caps and secured in place with screw head caps with attention to perform then closure of the osteotomy site. Intraoperative monitoring before and after the closure was stable. Then, attention was brought to perform the arthrodesis. The locally harvested bone was morselized and was mixed with DBX putty and after decortication of the exposed bony surfaces, bone graft was placed bilaterally. After copious irrigation and confirmation of meticulous hemostasis, the self-retaining retractors were removed and the wound was closed by layers over a #7 JOVON drain, which was tunneled through a separate stab wound incision. The dorsal fascia was approximated with 1 interrupted Vicryl suture while the subcutaneous tissue was approximated with inverted interrupted 2-0 Vicryl sutures and the skin was covered with #1 Prolene. At the end of the procedure, all counts were reported to be correct. The patient remained hemodynamically stable throughout the case and the intraoperative electrophysiological monitoring was stable throughout the case. At the end of the procedure, the patient was transferred to Recovery in excellent condition. [id number]/CPS #: [id number] MEL
[2018-03-14] MEDS: Atorvastatin* 40 MG TAB PO SCH (18:25)
[2018-03-14] MEDS: Magnesium Hydroxide LIQ* 30 ML UDC PO PRN (18:30)
[2018-03-14] MEDS: Docusate CAP* 100 MG PO PRN (18:30)
[2018-03-14] MEDS: Mirtazapine TAB* 15 MG PO SCH (21:12)
[2018-03-14] MEDS: Zolpidem TAB* 5 MG PO PRN (21:42)
[2018-03-15] MEDS: oxyCODONE TAB* 5 MG TAB PO PRN ×3 (04:05→17:06)
[2018-03-15] MEDS: Metoprolol Tartrate IV* 1 MG/ML 5 ML VIAL IV PRN ×2 (04:06→17:00)
[2018-03-15 06:31] LABS: ABS Basophils 0.1 10^3/ul (0-0.2); ABS Eosinophils 0 10^3/ul (0-0.6); ABS Lymphocytes 1.3 10^3/ul (1.0-4.8); ABS Monocytes 1.2 10^3/ul (0-0.8); ABS Neutrophils 9.3 10^3/ul (1.5-7.7); ABS Nucleated RBC 0 10^3/ul; Eosinophil % 0.4 %; Hematocrit 38 % (42-52); Hemoglobin 12.8 g/dl (14.0-18.0); Lymphocyte % 10.8 %; Mean Corpuscular HGB Conc 34 g/dl (31-36); Mean Corpuscular Hemoglobin 30 pg (27-31); Mean Corpuscular Volume 88 fL (80-94); Mean Platelet Volume 8.3 fL (7.4-10.4); Nucleated Red Blood Cells % 0.1; Platelet Count 248 10^3/ul (150-450); Red Blood Count 4.28 10^6/ul (4.00-5.40); Red Cell Distribution Width 14 % (10.5-15); White Blood Count 11.9 10^3/ul (3.5-10.8)
[2018-03-15 06:55] LABS: EGFR Non-African American 119.4 (>60)
[2018-03-15] MEDS: Hydrochlorothiazide TAB* 25 MG PO SCH (08:19)
[2018-03-15] MEDS: Magnesium Hydroxide LIQ* 30 ML UDC PO PRN (08:19)
[2018-03-15] MEDS: Insulin LISPRO* 1 UNITS UNIT SUBCUT SCH ×4 (08:20→20:53)
[2018-03-15] MEDS: Omeprazole CAP* 20 MG PO SCH (08:20)
[2018-03-15] MEDS: Docusate CAP* 100 MG PO PRN (08:20)
[2018-03-15] MEDS: Diltiazem CD CAP* 240 MG PO SCH (08:20)
--- NOTE | 2018-03-15 09:39 | PN ---
Progress Note - Progress Note Date of Service: 03/15/18 SOAP: Subjective: []Patient was seen earlier today and yesterday. Patient tolerated second stage of the procedure well. No events ON. Tolerates PO well. Ambulates. Voids. MJ collar. Objective: []VSS, Afebrile. Wound s,c,d. Drain output noted. MJ collar. AAOx3, BERNARDO, CN II-XII grossly intact Motor 4-5/5 all extremities Sensory grossly intact to light touch Assessment: []62 yom POD#9 ACDF C4-T1 , POD#3 PCDF C2-T2 for correction of cervical deformity Plan: [] Monitor VS, Neurochecks BP control per IM Keep MJ collar at all times OOB with assistance HOB 40-60' DC drain in am DC planning, possibly tomorrow. Greatly appreciate IM/Neurology consult. Fide Em MD
[2018-03-15] MEDS ORDERED: Lisinopril TAB* 5 MG PO SCH (10:59)
--- NOTE | 2018-03-15 11:50 | PN ---
Subjective Date of Service: 03/15/18 Interval History: Patient is concerned because he hasn't had a BM in 7 days per his report. Patient denies abdominal discomfort. Patient is having a significant amount of pain from his neck and back. Patient denies F/C, CP, SOB, N/V, dysuria. Patient states he occasionally gets dizzy when standing up very fast. Patient has never passed out. Patient denies numbness or tingling. Family History: Unchanged from Admission Social History: Unchanged from Admission Past Medical History: Unchanged from Admission Objective Active Medications: Al Hydrox/Mg Hydrox/Simethicone (Maalox Plus*) 30 ml PO Q6H PRN PRN Reason: INDIGESTION Last Admin: 03/08/18 02:36 Dose: 30 ml Atorvastatin Calcium (Lipitor*) 40 mg PO QPM [facility] Last Admin: 03/14/18 18:25 Dose: 40 mg Bisacodyl (Dulcolax Supp*) 10 mg [place] DAILY PRN PRN Reason: CONSTIPATION Last Admin: 03/15/18 09:31 Dose: 10 mg Clotrimazole (Mycelex Chastity*) 10 mg PO TID [facility] Cyclobenzaprine HCl (Flexeril Tab*) 10 mg PO TID PRN PRN Reason: muscle spasm Last Admin: 03/07/18 13:30 Dose: 10 mg Diltiazem HCl (Cardizem Cd Cap*) [facility] [place] Last Admin: 03/15/18 08:20 Dose: 240 mg Docusate Sodium (Colace Cap*) 100 mg PO BID PRN PRN Reason: CONSTIPATION Last Admin: 03/15/18 08:20 Dose: 100 mg Famotidine (Pepcid Tab*) 20 mg PO BID PRN PRN Reason: HEARTBURN Hydralazine HCl (Apresoline Iv*) 5 mg IV SLOW PU Q6H PRN PRN Reason: SBP>150 Last Admin: 03/14/18 02:52 Dose: 5 mg Hydrochlorothiazide (Hydrodiuril Tab*) 25 mg PO QAM [facility] Last Admin: 03/15/18 08:19 Dose: 25 mg Insulin Human Lispro (Humalog*) 0 units SUBCUT ACHS [facility]; Protocol Last Admin: 03/15/18 08:20 Dose: 2 units Magnesium Hydroxide (Milk Of Magnesia Liq*) 30 ml PO DAILY PRN PRN Reason: CONSTIPATION Last Admin: 03/15/18 08:19 Dose: 30 ml Metoprolol Tartrate (Lopressor Iv*) 5 mg IV Q6H PRN PRN Reason: SBP>150 Last Admin: 03/15/18 04:06 Dose: 5 mg Mirtazapine (Remeron Tab*) 15 mg PO BEDTIME [facility] Last Admin: 03/14/18 21:12 Dose: Not Given Morphine Sulfate (Morphine Vial*) 2 mg IV Q4H PRN PRN Reason: PAIN Last Admin: 03/14/18 09:32 Dose: 2 mg Omeprazole (Prilosec Cap*) 20 mg PO DAILY@0730 [facility] Last Admin: 03/15/18 08:20 Dose: 20 mg Ondansetron HCl (Zofran Inj*) 4 mg IV Q6H PRN PRN Reason: NAUSEA/VOMITING Oxycodone HCl (Roxycodone Tab*) 10 mg PO Q4H PRN PRN Reason: PAIN Last Admin: 03/15/18 08:20 Dose: 10 mg Throat Lozenges (Chloraseptic Afshan*) 1 afshan MT Q6H PRN PRN Reason: SORE THROAT Last Admin: 03/11/18 07:44 Dose: 1 afshan Zolpidem Tartrate (Ambien Tab*) 5 mg PO BEDTIME PRN PRN Reason: SLEEP Last Admin: 03/14/18 21:42 Dose: 5 mg Vital Signs - 8 hr 03/15/18 03/15/18 03/15/18 04:02 04:05 07:21 Temperature 98.0 F 98.1 F Pulse Rate 79 74 Respiratory 16 16 18 Rate Blood Pressure 154/71 143/70 (mmHg) O2 Sat by Pulse 100 99 Oximetry 03/15/18 03/15/18 03/15/18 07:39 07:40 08:20 Temperature Pulse Rate Respiratory 18 18 18 Rate Blood Pressure (mmHg) O2 Sat by Pulse Oximetry 03/15/18 10:35 Temperature Pulse Rate Respiratory 18 Rate Blood Pressure (mmHg) O2 Sat by Pulse Oximetry Oxygen Devices in Use Now: None Appearance: Patient is a 62yo male who appears stated age, is in a cervical collar, and is sitting in the bed in NAD. Eyes: No Scleral Icterus, PERRLA Ears/Nose/Mouth/Throat: NL Teeth, Lips, Gums, Clear Oropharnyx, Mucous Membranes Moist Neck: NL Appearance and Movements; NL JVP, Trachea Midline, - - Collar in place. Surgical incisions covered with dressings and not visualized. Respiratory: Symmetrical Chest Expansion and Respiratory Effort, Clear to Auscultation Cardiovascular: NL Sounds; No Murmurs; No JVD, RRR, No Edema Abdominal: NL Sounds; No Tenderness; No Distention, No Hepatosplenomegaly Lymphatic: No Cervical Adenopathy Extremities: No Edema, No Clubbing, Cyanosis Skin: No Rash or Ulcers, No Nodules or Sclerosis Neurological: Alert and Oriented x 3, NL Sensation, NL Muscle Strength and Tone , - - CN II-XII intact. Result Diagrams: 03/15/18 06:14 03/15/18 06:14 Assess/Plan/Problems-Billing Assessment: Mr. Bowles is a 62 yo male with PMH significant for CAD, HTN, and DM who was admitted for a cervical fusion with Dr. Bill. Underwent anterior cervical fusion 03/06 and posterior fusion 03/13. Patient is slightly hypertensive, but otherwise doing well. - Patient Problems (1) S/P cervical spinal fusion Current Visit: Yes Status: Acute Code(s): Z98.1 - ARTHRODESIS STATUS SNOMED Code(s): 2941855347946 Comment: - Management per neurosurgery - Intermittent facial tingling, follow up CT brain negative - Continues to have symptoms of dysphagia; espohagram normal - PT/OT, speech (2) CAD (coronary artery disease) Current Visit: Yes Status: Acute Code(s): I25.10 - ATHSCL HEART DISEASE OF [place] CORONARY ARTERY W/O ANG PCTRS SNOMED Code(s): 17261185 Comment: - Asymptomatic - Continue atorvastatin - Resume aspirin when approved by neuro surgery (3) Dysphagia Current Visit: Yes Status: Acute Code(s): R13.10 - DYSPHAGIA, UNSPECIFIED SNOMED Code(s): 39778406 Comment: - Esophagram without signs of esophageal tear - Speech therapy consulted - Continue mechanical soft, thin liquids diet, exra liquids per recommendations (4) Numbness and tingling Current Visit: Yes Status: Acute Code(s): R20.0 - ANESTHESIA OF SKIN; R20.2 - PARESTHESIA OF SKIN SNOMED Code(s): 593303641615 Comment: - Intermittent issue for 3 years around lips and bilateral UEs, resolves with placement of dentures - Calcium level WNL - No changes noted on EEG - Neurology consulted; will need oupt follow up (5) Diabetes Current Visit: No Status: Acute Code(s): E11.9 - TYPE 2 DIABETES MELLITUS WITHOUT COMPLICATIONS SNOMED Code(s): 27780526 Comment: - BGs 120-190s - Continue FSBG AC with lispro SS - Resume home meds on discharge (6) HTN (hypertension) Current Visit: No Status: Acute Code(s): I10 - ESSENTIAL (PRIMARY) HYPERTENSION SNOMED Code(s): 61675271 Comment: - SBP 150-160s - Continue efforts towards good pain control - Continue diltiazem, increase HCTZ to 25mg - Plan for Lisinopril tomorrow if no improvement. (7) DVT prophylaxis Current Visit: Yes Status: Acute Code(s): FIM0557 - SNOMED Code(s): 809382628 Comment: - SCDS (8) Full code status Current Visit: Yes Status: Acute Code(s): Z78.9 - OTHER SPECIFIED HEALTH STATUS SNOMED Code(s): 800640434 Status and Disposition: Inpatient with disposition per neurosurgery. Thank you for this consultation. We will continue to follow along.
[2018-03-15] MEDS ORDERED: Magnesium CITRATE* 300 ML BTL PO ONE (13:11)
[2018-03-15] MEDS: Clotrimazole TROCHE* 10 MG TROCHE PO SCH ×2 (14:23→20:57)
[2018-03-15] MEDS: Atorvastatin* 40 MG TAB PO SCH (17:00)
[2018-03-15] MEDS: Mirtazapine TAB* 15 MG PO SCH (21:02)
[2018-03-15] MEDS: Zolpidem TAB* 5 MG PO PRN (21:49)
[2018-03-16] MEDS: oxyCODONE TAB* 5 MG TAB PO PRN ×2 (02:07→12:56)
[2018-03-16] MEDS: Metoprolol Tartrate IV* 1 MG/ML 5 ML VIAL IV PRN (05:02)
[2018-03-16 05:42] LABS: ABS Basophils 0.1 10^3/ul (0-0.2); ABS Eosinophils 0.1 10^3/ul (0-0.6); ABS Lymphocytes 1.1 10^3/ul (1.0-4.8); ABS Neutrophils 8.2 10^3/ul (1.5-7.7); ABS Nucleated RBC 0 10^3/ul; Eosinophil % 0.5 %; Hematocrit 35 % (42-52); Hemoglobin 11.7 g/dl (14.0-18.0); Lymphocyte % 10.3 %; Mean Corpuscular HGB Conc 34 g/dl (31-36); Mean Corpuscular Hemoglobin 30 pg (27-31); Mean Corpuscular Volume 89 fL (80-94); Nucleated Red Blood Cells % 0; Platelet Count 248 10^3/ul (150-450); Red Blood Count 3.91 10^6/ul (4.00-5.40); Red Cell Distribution Width 14 % (10.5-15); White Blood Count 10.4 10^3/ul (3.5-10.8)
[2018-03-16 05:58] LABS: EGFR Non-African American 115.4 (>60)
[2018-03-16] MEDS: Clotrimazole TROCHE* 10 MG TROCHE PO SCH (08:34)
[2018-03-16] MEDS: Diltiazem CD CAP* 240 MG PO SCH (08:34)
[2018-03-16] MEDS: Omeprazole CAP* 20 MG PO SCH (08:34)
[2018-03-16] MEDS: Hydrochlorothiazide TAB* 25 MG PO SCH (08:34)
[2018-03-16] MEDS: Insulin LISPRO* 1 UNITS UNIT SUBCUT SCH ×2 (09:06→12:56)
[2018-03-16] MEDS ORDERED: Lisinopril TAB* 5 MG PO SCH (11:00)
--- NOTE | 2018-03-16 11:05 | PN ---
Subjective Date of Service: 03/16/18 Interval History: Patient is feeling somewhat better today. Patient had a large BM yesterday, but still feels as if he has to have a BM. Patient had an episode of self-resolving tremor in his B/L UE after a walk yesterday without dizziness or other alterations in consciousness. Patient rates the pain in his neck at 4/10. Patient denies CP, SOB, N/V, F/C, abdominal pain, or other pain. Family History: Unchanged from Admission Social History: Unchanged from Admission Past Medical History: Unchanged from Admission Objective Active Medications: Al Hydrox/Mg Hydrox/Simethicone (Maalox Plus*) 30 ml PO Q6H PRN PRN Reason: INDIGESTION Last Admin: 03/08/18 02:36 Dose: 30 ml Atorvastatin Calcium (Lipitor*) 40 mg PO QPM FOR[facility], [facility]1983 Last Admin: 03/15/18 17:00 Dose: 40 mg Bisacodyl (Dulcolax Supp*) 10 mg [place] DAILY PRN PRN Reason: CONSTIPATION Last Admin: 03/15/18 09:31 Dose: 10 mg Clotrimazole (Mycelex Chastity*) 10 mg PO TID [facility], [facility]1983 Last Admin: 03/16/18 08:34 Dose: 10 mg Cyclobenzaprine HCl (Flexeril Tab*) 10 mg PO TID PRN PRN Reason: muscle spasm Last Admin: 03/07/18 13:30 Dose: 10 mg Diltiazem HCl (Cardizem Cd Cap*) 240 mg PO QAM [facility], [facility]1983 Last Admin: 03/16/18 08:34 Dose: 240 mg Docusate Sodium (Colace Cap*) 100 mg PO BID PRN PRN Reason: CONSTIPATION Last Admin: 03/15/18 08:20 Dose: 100 mg Famotidine (Pepcid Tab*) 20 mg PO BID PRN PRN Reason: HEARTBURN Hydrochlorothiazide (Hydrodiuril Tab*) 25 mg PO QAM [facility], [facility]1983 Last Admin: 03/16/18 08:34 Dose: 25 mg Insulin Human Lispro (Humalog*) 0 units SUBCUT [facility], [facility]1983; Protocol Last Admin: 03/16/18 09:06 Dose: 2 units Lisinopril (Prinivil Tab*) 2.5 mg PO DAILY [facility] Magnesium Hydroxide (Milk Of Magnesia Liq*) 30 ml PO DAILY PRN PRN Reason: CONSTIPATION Last Admin: 03/15/18 08:19 Dose: 30 ml Mirtazapine (Remeron Tab*) 15 mg PO BEDTIME [facility] Last Admin: 03/15/18 21:02 Dose: Not Given Morphine Sulfate (Morphine Vial*) 2 mg IV Q4H PRN PRN Reason: PAIN Last Admin: 03/14/18 09:32 Dose: 2 mg Omeprazole (Prilosec Cap*) 20 mg PO DAILY@0730 [facility], [facility] Last Admin: 03/16/18 08:34 Dose: 20 mg Ondansetron HCl (Zofran Inj*) 4 mg IV Q6H PRN PRN Reason: NAUSEA/VOMITING Oxycodone HCl (Roxycodone Tab*) 10 mg PO Q4H PRN PRN Reason: PAIN Last Admin: 03/16/18 02:07 Dose: 10 mg Throat Lozenges (Chloraseptic Afshan*) 1 afshan MT Q6H PRN PRN Reason: SORE THROAT Last Admin: 03/11/18 07:44 Dose: 1 afshan Zolpidem Tartrate (Ambien Tab*) 5 mg PO BEDTIME PRN PRN Reason: SLEEP Last Admin: 03/15/18 21:49 Dose: 5 mg Vital Signs - 8 hr 03/16/18 03/16/18 03/16/18 04:17 04:40 07:13 Temperature 98.2 F 97.7 F Pulse Rate 77 61 Respiratory 20 20 17 Rate Blood Pressure 152/68 118/59 (mmHg) O2 Sat by Pulse 97 98 Oximetry 03/16/18 03/16/18 07:31 07:55 Temperature Pulse Rate Respiratory 16 Rate Blood Pressure (mmHg) O2 Sat by Pulse 98 Oximetry Oxygen Devices in Use Now: None Appearance: Patient is a 62yo male in a [place] J Collar sitting in the bed in [facility]. Eyes: No Scleral Icterus, PERRLA Ears/Nose/Mouth/Throat: NL Teeth, Lips, Gums, Clear Oropharnyx, Mucous Membranes Moist Neck: NL Appearance and Movements; NL JVP, Trachea Midline, - - [place] J collar. Incisions covered in bulky dressings. Respiratory: Symmetrical Chest Expansion and Respiratory Effort, Clear to Auscultation Cardiovascular: NL Sounds; No Murmurs; No JVD, RRR, No Edema Abdominal: NL Sounds; No Tenderness; No Distention, No Hepatosplenomegaly Lymphatic: No Cervical Adenopathy Extremities: No Edema, No Clubbing, Cyanosis Skin: No Rash or Ulcers, No Nodules or Sclerosis Neurological: Alert and Oriented x 3, NL Sensation, NL Muscle Strength and Tone , - - CN II-XII intact. Result Diagrams: 03/16/18 05:31 03/16/18 05:31 Assess/Plan/Problems-Billing Assessment: Mr. Bowles is a 62 yo male with PMH significant for CAD, HTN, and DM who was admitted for a cervical fusion with Dr. Bill. Underwent anterior cervical fusion 03/06 and posterior fusion 03/13. Patient is slightly hypertensive, but otherwise doing well and is medically cleared for discharge today if appropriate. - Patient Problems (1) S/P cervical spinal fusion Current Visit: Yes Status: Acute Code(s): Z98.1 - ARTHRODESIS STATUS SNOMED Code(s): 0424622331077 Comment: - Management per neurosurgery - Intermittent facial tingling, follow up CT brain negative - Continues to have symptoms of dysphagia; espohagram normal - PT/OT, speech (2) CAD (coronary artery disease) Current Visit: Yes Status: Acute Code(s): I25.10 - ATHSCL HEART DISEASE OF [place] CORONARY ARTERY W/O ANG PCTRS SNOMED Code(s): 38609580 Comment: - Asymptomatic - Continue atorvastatin - Resume aspirin at discharge. (3) Dysphagia Current Visit: Yes Status: Acute Code(s): R13.10 - DYSPHAGIA, UNSPECIFIED SNOMED Code(s): 16481982 Comment: - Esophagram without signs of esophageal tear - Speech therapy consulted - Continue mechanical soft, thin liquids diet, exra liquids per recommendations (4) Numbness and tingling Current Visit: Yes Status: Acute Code(s): R20.0 - ANESTHESIA OF SKIN; R20.2 - PARESTHESIA OF SKIN SNOMED Code(s): 351866138523 Comment: - Intermittent issue for 3 years around lips and bilateral UEs, resolves with placement of dentures - Calcium level WNL - No changes noted on EEG - Neurology consulted; will need oupt follow up (5) Diabetes Current Visit: No Status: Acute Code(s): E11.9 - TYPE 2 DIABETES MELLITUS WITHOUT COMPLICATIONS SNOMED Code(s): 67643478 Comment: - BGs 120-190s - Continue FSBG AC with lispro SS - Resume home meds on discharge (6) HTN (hypertension) Current Visit: No Status: Acute Code(s): I10 - ESSENTIAL (PRIMARY) HYPERTENSION SNOMED Code(s): 59685522 Comment: - SBP 150-160s - Continue efforts towards good pain control - Continue diltiazem, increase HCTZ to 25mg - Start Lisinopril today for persistent hypertension. (7) DVT prophylaxis Current Visit: Yes Status: Acute Code(s): QQU0814 - SNOMED Code(s): 826256387 Comment: - SCDS (8) Full code status Current Visit: Yes Status: Acute Code(s): Z78.9 - OTHER SPECIFIED HEALTH STATUS SNOMED Code(s): 215397815 Status and Disposition: Inpatient with disposition per neurosurgery. Thank you for this consultation. We will continue to follow along.
--- NOTE | 2018-03-16 12:52 | PN ---
Progress Note - Progress Note Date of Service: 03/16/18 SOAP: Subjective: [] No events ON. Tolerates PO well. Ambulates well, no issues. Voids. MJ collar. Feels much better now. Minimal neck pain. Had minimal PO pain medications yesterday. Feels that he is able to look straight, which is a significant improvement compared to preop as he reports. He would have the surgery again if he had the choice. He wants to go home. Objective: []VSS, Afebrile. Wounds s,c,d. Drain output noted. Drain was removed. Catheter appeared to be intact. Patient tolerated procedure well. MJ collar. AAOx3, BERNARDO, CN II-XII grossly intact Motor 4-5/5 all extremities Sensory grossly intact to light touch Assessment: []62 yom POD#10 ACDF C4-T1 , POD#4 PCDF C2-T2 for correction of cervical deformity Plan: [] Monitor VS, Neurochecks BP control per IM Keep MJ collar at all times OOB with assistance DC home later today if ok with IM. Greatly appreciate IM/Neurology consult. Fide Em MD .
[2018-03-16 17:03] VITALS: BP 138/60
== END 2018-03-16 17:35 | disposition home health service (06) | DRG 321 ==
LOC: AA 09:43 → SSU 21:56
PROVIDERS: ADMIT Neurological Surgery; ATTEND Neurological Surgery
PROC: 0RG20A0 Fusion of 2 or more Cervical Vertebral Joints with Interbody Fusion Device, Anterior Approach, Anterior Column, Open Approach (ICD-10-PCS; 2018-03-06)
PROC: 0RG40A0 Fusion of Cervicothoracic Vertebral Joint with Interbody Fusion Device, Anterior Approach, Anterior Column, Open Approach (ICD-10-PCS; 2018-03-06)
PROC: 0RB30ZZ Excision of Cervical Vertebral Disc, Open Approach (ICD-10-PCS; 2018-03-06)
PROC: 0RB50ZZ Excision of Cervicothoracic Vertebral Disc, Open Approach (ICD-10-PCS; 2018-03-06)
PROC: 4A00X4Z Measurement of Central Nervous Electrical Activity, External Approach (ICD-10-PCS; 2018-03-10)
PROC: 0RG4071 Fusion of Cervicothoracic Vertebral Joint with Autologous Tissue Substitute, Posterior Approach, Posterior Column, Open Approach (ICD-10-PCS; 2018-03-13)
PROC: 0RB30ZZ Excision of Cervical Vertebral Disc, Open Approach (ICD-10-PCS; 2018-03-13)
PROC: 0RB50ZZ Excision of Cervicothoracic Vertebral Disc, Open Approach (ICD-10-PCS; 2018-03-13)
PROC: 4A11X4G Monitoring of Peripheral Nervous Electrical Activity, Intraoperative, External Approach (ICD-10-PCS; 2018-03-13)
PROC: 8E0WXBZ Computer Assisted Procedure of Trunk Region (ICD-10-PCS; 2018-03-13)
PROC: 00NW0ZZ Release Cervical Spinal Cord, Open Approach (ICD-10-PCS; 2018-03-13)
PROC: 0RG2071 Fusion of 2 or more Cervical Vertebral Joints with Autologous Tissue Substitute, Posterior Approach, Posterior Column, Open Approach (ICD-10-PCS; principal; 2018-03-13 07:30)
DX: M48.02 Spinal stenosis, cervical region (principal); M47.12 Other spondylosis with myelopathy, cervical region; M40.202 Unspecified kyphosis, cervical region; I25.10 Atherosclerotic heart disease of native coronary artery without angina pectoris; I10 Essential (primary) hypertension; M50.321 Other cervical disc degeneration at C4-C5 level; M43.9 Deforming dorsopathy, unspecified; E78.00 Pure hypercholesterolemia, unspecified; I08.3 Combined rheumatic disorders of mitral, aortic and tricuspid valves; M41.9 Scoliosis, unspecified; E78.5 Hyperlipidemia, unspecified; G56.00 Carpal tunnel syndrome, unspecified upper limb; I25.9 Chronic ischemic heart disease, unspecified; E66.9 Obesity, unspecified; F32.9 Major depressive disorder, single episode, unspecified; I44.0 Atrioventricular block, first degree; G89.29 Other chronic pain; K21.9 Gastro-esophageal reflux disease without esophagitis; R13.10 Dysphagia, unspecified; E11.41 Type 2 diabetes mellitus with diabetic mononeuropathy; G56.12 Other lesions of median nerve, left upper limb; Z95.1 Presence of aortocoronary bypass graft; I25.2 Old myocardial infarction; Z82.49 Family history of ischemic heart disease and other diseases of the circulatory system; Z83.3 Family history of diabetes mellitus; Z83.49 Family history of other endocrine, nutritional and metabolic diseases; Z88.5 Allergy status to narcotic agent; Z88.8 Allergy status to other drugs, medicaments and biological substances; Z68.34 Body mass index [BMI] 34.0-34.9, adult
CPT/HCPCS: 36415; 70450; 72040; 72125; 74220; 76001; 80048; 83735; 85025; 85027; 85610; 86850; 86900; 86901; 95819; A9270-GY; C1713; C9359; G8987-GO-CK; G8988-GO-CI; J0360; J0690; J0780; J1100; J1240; J2250; J2270; J2405; J2704; J3010; J3490

== ENCOUNTER 2018-04-18 16:06 | Emergency (ER) | payer OTHER ==
--- OUTSIDE RECORDS SUMMARY | 2018-04-18 16:33 | XMS REPORT | Continuity of Care Document ---
:1955 External Reference #:[id number] Author Name Mariely Isabela Care Team Providers Name Role Phone Samy Tipton M.D. Primary Care Physician Unavailable Payers Type Date Identification Numbers Payment Provider Subscriber Effective: Policy Number: [id number] [employer] Arthur Wilbur 2014 Medicaid PayID: [id number] [address] [address] [place] [address] Effective: 2011 Policy Number: [id number] [employer] Arthur Wilbur Expires: 2014 PayID: [id number] [address] [address] [place] [address] Effective: 2010 Policy Number: [id number] [employer] Arthur Wilbur Expires: 2011 PayID: [id number] [address] [address] [place] [address] Effective: 2007 Policy Number: [id number] [facility] Ppo Arthur Wilbur Expires: 2010 PayID: [id number] [address] [address] [place] [address] Advance Directives Description No Information Available Problems Date Description Provider Status Onset: 12/13/2011 Aortocoronary Bypass Postsurgical Ana Rosa Cervantes D.O. 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 08/31 Metoprolol 06/11 Hx [...] Available Vital Signs Date Vital Result Comment 03/21/2018 10:07am Height 69 inches 5'9" Weight 208.00 lb BP Systolic 132 mmHg BP Diastolic 78 mmHg Body Temperature 99.3 F Pain Level 6 BMI (Body Mass Index) 30.7 kg/m2 02/28/2018 11:39am Height 69 inches 5'9" Weight [...] Date Facility Test Result H/L Range Note Laboratory test 03/12/2018 [facility] DBX 2.5 SEE RESULTS 1 , [address] BEL <SEE NOTE> [place]ENJAMIN Albrecht [address] [phone] Floseal SEE RESULTS BELO <SEE NOTE> 3 CBC No Diff 02/27/2018 [facility] White Blood 7.5 10^3/uL N 3.5-10.[address] [place] [address] [phone] Red Blood Count 5.13 10^6/uL N 4.00-5.40 Hemoglobin 15.7 g/dL N 14.0-18.0 Hematocrit 46 % N 42-52 Mean Corpuscular Volume 90 fL N 80-94 Mean Corpuscular Hemoglobin 31 pg N 27-31 Mean Corpuscular HGB Conc 34 g/dL N 31-36 Red Cell Distribution Width 15 % N 10.5-15 Platelet Count 270 10^3/uL N 150-450 Mean Platelet Volume 9.0 fL N 7.4-10.4 Urinalysis Profile 02/27/2018 [facility] Urine Color Yellow [address] [place] [address] [phone] Urine Appearance Clear Urine Specific [place] 1.019 N 1.010-1.030 Urine pH 5.0 N 5-9 Urine Urobilinogen Negative Negative Urine Ketones Negative Negative Urine Protein Negative Negative Urine Leukocytes Negative Negative Urine Blood 1+ Abnormal Negative Urine Nitrite Negative Negative Urine Bilirubin Negative Negative Urine Glucose Negative Negative Urine White Blood Cell Trace(0-5/hpf) Absent Urine Red Blood Cell 1+(3-5/hpf) Abnormal Absent Urine Bacteria Absent Absent Inr/Protime 02/27/2018 [facility] Inr 0.88 N 0.77-1.[address] [place] [address] [phone] Laboratory test 02/27/2018 [facility] Partial 31.7 seconds N 26.0-36.3 finding [facility] [place] [address] PTT [phone] Basic Metabolic 02/27/2018 [facility] Sodium 140 mmol/L N 135- 145 Panel [address] [place] [address] [phone] Potassium 4.1 mmol/L N 3.5-5.0 Chloride 101 mmol/L N 101-111 Co2 Carbon Dioxide 33 mmol/L High 22-32 Anion Gap 6 mmol/L N 2-11 Glucose 114 mg/dL High 70-100 Blood Urea Nitrogen 17 mg/dL N 6-24 Creatinine 0.85 mg/dL N 0.67-1.17 BUN/Creatinine Ratio 20.0 N 8-20 Calcium 9.5 mg/dL N 8.6-10.3 Egfr Non- 90.7 >60 Egfr 109.8 >60 4 Type & Screen 02/27/2018 [facility] Patient Blood Type AB Positive [address] [place] [address] [phone] Antibody Screen NEGATIVE Urine Culture And 02/27/2018 [facility] Urine Culture SEE RESULT [address] [place] [address] [phone] Lipid Profile 02/24/2018 [facility] Triglycerides 80 mg/dL 6 (Trig/Chol/HDL) [address] [place] [address] [phone] Cholesterol 145 mg/dL 7 HDL Cholesterol 53.1 mg/dL 8 LDL Cholesterol 76 mg/dL 9 Comp Metabolic Panel 02/24/2018 [facility] Sodium 137 mmol/L N 135-[address] [place] [address] [phone] Potassium 4.2 mmol/L N 3.5-5.0 Chloride 100 [...] Egfr Non- 81.8 >60 Egfr 99.0 >60 10 Lipid Panel 02/24/2018 [facility] Creatine 155 U/L N 10-223 11 - JFM [address] Kinase(CK) [place] [address] [phone] CBC Auto 02/24/2018 [facility] White Blood Count 8.9 N 3.5- 10.[address] 10^3/[place] [address] [phone] Red Blood Count 5.02 10^6/uL N 4.00-5.40 [...] 0-2 Nucleated Red Blood Cells % 0 Laboratory test 02/26/2017 [facility] TSH (Thyroid 0.86 N 0.34 -5.60 [address] Stimulating mcIU/[place] [address] Horm) [phone] Free T4 1.00 ng/dL N 0.61-1.12 13 Vitamin B12 271 pg/mL N 180-914 14 Connective Tissue 02/26/2017 [facility] Anti-Nuclear 0.3 U [address] [place] [address] [phone] Cyclic Citrullinated Peptide <15.6 U 16 Interpretation See Comment 17 Laboratory test 02/26/2017 [facility] C Reactive 2.04 mg/L N < 5.00 [address] [place] [address] [phone] Lyme Disease Serology Negative Negative 19 Hepatitis C Antibody Nonreactive Nonreactive Laboratory test 05/28/2016 [facility] Point of 144 mg/dL High 74-106 [address] [place] [address] [phone] Laboratory test 05/28/2016 [facility] Clotest SEE RESULT [address] [place] [address] [phone] CBC Auto Diff 10/25/2015 [facility] White Blood 10.1 N 3.5- 10.[address] Count 10^3/[place] [address] [phone] Red Blood Count 5.19 10^6/uL N 4.0-5.4 [...] % 0.1 N Comp Metabolic Panel 10/25/2015 [facility] Sodium 138 mmol/L N 133-[address] [place] [address] [phone] Potassium 4.1 mmol/L N 3.5-5.0 Chloride 100 [...] 98.0 N >60 Egfr 126.0 N >60 22 Lipid Profile 10/25/2015 [facility] Triglycerides 113 mg/dL N 23 (Trig/Chol/HDL) [address] [place] [address] [phone] Cholesterol 169 mg/dL N 24 HDL Cholesterol 50.6 mg/dL N 25 LDL Cholesterol 96 mg/dL N 26 Laboratory test 10/25/2015 [facility] Uric Acid 6.5 mg/dL N 4.4-7.6 27 finding [address] [place] [address] [phone] Magnesium 1.6 mg/dL Low 1.9-2.7 28 TSH (Thyroid Stim Horm) 1.19 mcIU/mL N 0.34-5.60 29 Vitamin B12 340 pg/mL N 180-914 30 Vitamin D Total 25(Oh) 27.2 ng/mL Low 30-50 31 Hemoglobin A1c (Glyco HGB) 5.9 % N Less than 6.0 32 Lipid Panel - 04/11/2015 [facility] Creatine Kinase 93 U/L N 10-223 33 JFM [address] [place] [address] [phone] Comp Metabolic 04/11/2015 [facility] Sodium 138 N 133-145 Panel 101 mmol/[place] [address] [phone] Potassium 4.5 mmol/L N 3.5-5.0 Chloride 100 [...] 83.6 N >60 Egfr 107.6 N >60 34 Lipid Profile 04/11/2015 [facility] Triglycerides 96 mg/dL N 35 (Trig/Chol/HDL) [address] [place] [address] [phone] Cholesterol 139 mg/dL N 36 HDL Cholesterol 52.8 mg/dL N 37 LDL Cholesterol 67 mg/dL N 38 CBC Auto Diff 07/22/2014 [facility] White Blood 7.7 10^3/uL N 4.8-10.[address] [place] [address] [phone] Red Blood Count 4.53 10^6/uL N 4.0-5.4 [...] % 0 N Comp Metabolic Panel 07/22/2014 [facility] Sodium 136 mmol/L N 133-145 [address] [place] [address] [phone] Potassium 4.3 mmol/L N 3.5-5.0 Chloride 98 [...] 72.0 N >60 Egfr 92.7 N >60 40 Lipid Profile 07/22/2014 [facility] Triglycerides 100 mg/dL N 41 (Trig/Chol/HDL) [address] [place] [address] [phone] Cholesterol 132 mg/dL N 42 HDL Cholesterol 45.6 mg/dL N 43 LDL Cholesterol 66 mg/dL N 44 Laboratory test 07/22/2014 [facility] PSA Screening 3.628 ng/mL N 0-4.000 45 finding [address] [place] [address] [phone] Hemoglobin A1c 6.4 % High Less than 6.0 46 Basic Metabolic Panel 04/14/2014 [facility] Sodium 136 mmol/L N 133-145 [address] [place] [address] [phone] Potassium 4.5 mmol/L N 3.5-5.0 Chloride 98 mmol/L Low 101-111 Co2 Carbon Dioxide 31 mmol/L N 22-32 Anion Gap 7 mmol/L N 2-11 Glucose 124 mg/dL High 70-100 Blood Urea Nitrogen 21 mg/dL N 6-24 Creatinine 0.93 mg/dL N 0.67-1.17 BUN/Creatinine Ratio 22.6 High 8-20 Calcium 9.4 mg/dL N 8.6-10.3 Egfr Non- 82.9 N >60 Egfr 106.6 N >60 47 Laboratory test 04/14/2014 [facility] Hemoglobin A1c 6.7 % High Less than [address] 6[address] [place] [address] [phone] Lipid Profile 09/04/2012 [facility] Triglycerides 63 mg/dL 40 -200 (Trig/Chol/HDL) [address] [place] [address] [phone] Cholesterol 110 mg/dL Less than 200 HDL Cholesterol 46 mg/dL 40-60 49 Cholesterol/HDL Ratio 2.4 Average 1-4.44 LDL Cholesterol 51.4 Less Than 100 50 Laboratory test finding 09/04/2012 [facility] Alt 17 U/L 14- [address] [place] [address] [phone] Ast 17 U/L 12-42 52 Lipid Profile 07/16/2012 [facility] Triglycerides 90 mg/dL 40 -200 (Trig/Chol/HDL) [address] [place] [address] [phone] Cholesterol 162 mg/dL Less than 200 HDL Cholesterol 47 mg/dL 40-60 53 Cholesterol/HDL Ratio 3.5 Average 1-4.44 LDL Cholesterol 97.0 mg/dL Less Than 100 54 Laboratory test 07/16/2012 [facility] Hemoglobin A1c 6.1 % High Less than [address] [place] [address] [phone] Comp Metabolic 07/16/2012 [facility] Sodium 140 133-[address] mmol/[place] [address] [phone] Potassium 5.0 mmol/L 3.5-5.0 Chloride 102 mmol/L [...] Egfr Non- 86.7 >60 Egfr 111.5 >60 56 Lipid Profile 12/22/2011 [facility] Triglyceride 104 mg/dL 40 -200 (Trig/Chol/HDL) [address] [place] [address] [phone] Cholesterol 140 mg/dL Less Than 200 57 High Density Lipoprotein 45 mg/dL 40-60 58 Cholesterol/HDL Ratio 3.11 AVERAGE 1-4.97 Low Density Lipoprotein 74 mg/dL Less Than 100 59 Liver Function 12/22/2011 [facility] Total Protein 6.3 GM/DL 6.2-8.1 Panel [address] [place] [address] [phone] Albumin 3.4 GM/DL Low 3.6-5.4 Globulin 2.9 GM/DL 2-4 Albumin/Globulin Ratio 1.2 1-3 Bilirubin Total 0.6 mg/dL 0.4-1.5 60 Bilirubin Direct 0.2 mg/dL 0.1-0.5 Indirect Bilirubin 0.4 mg/dL 0.3-1.0 61 Alkaline Phosphatase 93 U/L 39-117 Alt (SGPT) 18 U/L 17-63 Ast (Sgot) 20 U/L 12-42 Comp Metabolic Panel 12/22/2011 [facility] Sodium 140 mmol/L 135-145 [address] [place] [address] [phone] Potassium 4.2 mmol/L 3.5-5.0 Chloride 105 mmol/L 101-111 Co2 (Carbon Dioxide) 27.0 mmol/L 22-32 Anion Gap 8.0 mmol/L 2-11 62 Glucose 79 mg/dL 70-100 BUN 7 mg/dL 6-24 Creatinine 0.8 mg/dL 0.50-1.40 One Over Creatinine 1.25 BUN/Creatinine Ratio 8.8 8-20 Calcium 9.1 mg/dL 8.1-9.9 Total Protein 6.3 GM/DL 6.2-8.1 Albumin 3.4 GM/DL Low 3.6-5.4 Globulin 2.9 GM/DL 2-4 Albumin/Globulin Ratio 1.2 1-3 Bilirubin Total 0.8 mg/dL 0.4-1.5 63 Alkaline Phosphatase 94 U/L 39-117 Alt (SGPT) 18 U/L 17-63 Ast (Sgot) 22 U/L 12-42 eGFR Non- 99.3 > 60 eGFR 127.7 > 60 64 Laboratory test 12/22/2011 [facility] Hemoglobin A1c 5.9 % Less Than [address] [place] [address] [phone] 1 SPINAL STENOSIS, CERVICAL REGION 2 SEE RESULTS BELOW [id number] DBX 2.5 TRANSFUSED 03/13/18 0732 [id number] DBX 2.5 TRANSFUSED 03/13/18 0732 3 SEE RESULTS BELOW [id number] FLOSEAL TRANSFUSED 03/13/18 0732 4 Because ethnic data is not always readily [...] 15-29 5 Kidney failure <15 (or dialysis) 5 SEE RESULT BELOW Name: ARTHUR WILHELM : [address]: Emory Em MD Acct: [id number] Unit: [id number] AGE: 62 Location: PAT Re02/27/18 SEX: M Status: REG REF SPEC: [id number] JESSE: 02/27/[address] [facility] DR: Emory Em MD REQ: [id number] RECD: 02/27/18 STATUS: COMP _ SOURCE: URINE SPDESC: ORDERED: Urine Culture Procedure Result Reported Site Urine Culture Final 02/28/18- 1254 ML No Growth (<1,000 CFU/mL) * ML - Main Lab . END OF REPORT DEPARTMENT OF PATHOLOGY, [address] [place] [address] Rudi Gaytan M.D. Director [facility] # [id number] 6 Desirable: <150 Borderline High: 150-199 High: 200-499 Very High: >500 7 Desirable: <200 Borderline High: 200-239 High: >239 8 Low: <40 Desirable: 40-60 High: >60 9 Desirable: <100 Near Optimal: 100-129 Borderline High: 130-159 High: 160-189 Very High: >189 10 Because ethnic data is not always readily [...] 15-29 5 Kidney failure <15 (or dialysis) 11 FASTING Copy Result to: SAMY TIPTON ([id number]) 12 Copy Result to: ANABEL FRY ([id number]) 13 Copy Result to: ANABEL FRY ([id number]) 14 Normal Range 180 to 914 Indeterminate Range 145 to 180 Deficient Range <145 15 REFERENCE VALUE <=1.0 (Negative) 16 REFERENCE VALUE <20.0 (Negative) 17 Tests for antibodies to dsDNA and RADHA antigens are not performed automatically unless the TABITHA result is > or= 3.0 U. Studies performed at [facility] indicate that positive TABITHA results <3.0 U are rarely accompanied by positive second order tests. Test Performed by: [facility] - [facility] [address] [place] [address] 18 Acute inflammation: >10.00 19 Serologic response to B. burgdorferi infection is not detected, but cannot rule out early infection during which low or undetectable antibody levels to B. burgdorferi may be present. If clinically indicated, a new serum specimen should be submitted in 7-14 days. Test Performed by: [facility] - [address] [place] [address] 20 First Helper: ANNA MARIE GARCIA 21 SEE RESULT BELOW Name: ARTHUR WILHELM : [address]: Albert Cross MD Acct: [id number] Unit: [id number] AGE: 60 Location: ENDO Re05/28/16 SEX: M Status: REG REF SPEC: [id number] JESSE: 05/28/[address] [facility] DR: Albert Cross MD REQ: [id number] RECD: 05/28/16 STATUS: BILL WARD DR: Samy Cano MD _ SOURCE: SONNY ARMSTRONG [facility]: ORDERED: Clotest Procedure Result Reported Site Clotest Final 05/29/16823 ML Clotest Negative * ML - MAIN LAB ([facility]) . END OF REPORT * ML=Testing performed at Main Lab DEPARTMENT OF PATHOLOGY, [address] [place] [address] Rudi Gaytan M.D. Director [facility] # [id number] 22 Because ethnic data is not always readily [...] 15-29 5 Kidney failure <15 (or dialysis) 23 Desirable <150 Borderline high 150-199 High 200-499 Very High >500 24 Desirable <200 Borderline high 200-239 High >239 25 Low <40 Desirable: 40-60 High: >60 26 Desirable: <100 mg/dL Near Optimal: 100-129 mg/dL Borderline High: 130-159 mg/dL High: 160-189 mg/dL Very High: >189 mg/dL 27 [id number] Copy Result to: DEJAH CANO ([id number]) 28 [id number] Copy Result to: DEJAH CANO ([id number]) 29 [id number] Copy Result to: DEJAH CANO ([id number]) 30 Normal Range 180 to 914 Indeterminate Range 145 to 180 Deficient Range <145 31 [id number] Copy Result to: DEJAH CANO ([id number]) 32 Therapeutic target for the treatment of diabetes Mellitus patients is <7% HBA1C, and in selective patients <6.0%.Please refer to [place] [employer] Diabetic care guidelines for further information. 33 in 2 m cc pmd fsting 34 Because ethnic data is not always readily [...] 15-29 5 Kidney failure <15 (or dialysis) 35 Desirable <150 Borderline high 150-199 High 200-499 Very High >500 36 Desirable <200 Borderline high 200-239 High >239 37 Low <40 Desirable: 40-60 High: >60 38 Desirable: <100 mg/dL Near Optimal: 100-129 mg/dL Borderline High: 130-159 mg/dL High: 160-189 mg/dL Very High: >189 mg/dL 39 FASTING 12 HOUR 40 Because ethnic data is not always readily [...] 15-29 5 Kidney failure <15 (or dialysis) 41 Desirable <150 Borderline high 150-199 High 200-499 Very High >500 42 Desirable <200 Borderline high 200-239 High >239 43 Low <40 Desirable: 40-60 High: >60 44 Desirable: <100 mg/dL Near Optimal: 100-129 mg/dL Borderline High: 130-159 mg/dL High: 160-189 mg/dL Very High: >189 mg/dL 45 Serum levels of PSA measured using the [employer] DXI Hybritech immunoassay should not be interpreted as absolute evidence of the presence or absence of disease. The PSA value should be used in conjunction with other pertinent clinical diagnostic procedures. The values obtained with different assay methods or kits cannot be used interchangeably. 46 Therapeutic target for the treatment of diabetes Mellitus patients is <7% HBA1C, and in selective patients <6.0%.Please refer to [place] [employer] Diabetic care guidelines for further information. 47 Because ethnic data is not always readily [...] 15-29 5 Kidney failure <15 (or dialysis) 48 Therapeutic target for the treatment of diabetes Mellitus patients is <7% HBA1C, and in selective patients <6.0%.Please refer to [place] [employer] Diabetic care guidelines for further information. 49 HDL Interpretation: Undesirable: High Risk: Less than 40 mg/dL Desirable: Low Risk: Greater than 60 mg/dL 50 LDL Interpretation: Low Risk Optimal Level: LDL Less than 100 mg/dL Near or Above Optimal: LDL 100-129 mg/dL Borderline High Risk: LDL 130-159 mg/dL High Risk: LDL 160-189 mg/dL Very High Risk: LDL Greater than 189 mg/dL 51 PT IS FASTING 52 PT IS FASTING 53 HDL Interpretation: Undesirable: High Risk: Less than 40 MG/DL Desirable: Low Risk: Greater than 60 MG/DL 54 LDL Interpretation: Low Risk Optimal Level: LDL Less than 100 MG/DL Near or Above Optimal: LDL 100-129 MG/DL Borderline High Risk: LDL 130-159 MG/DL High Risk: LDL 160-189 MG/DL Very High Risk: LDL Greater than 189 MG/DL 55 Therapeutic target for the treatment of diabetes Mellitus patients is <7% HBA1C, and in selective patients <6.0%.Please refer to [place] [employer] Diabetic care guidelines for further information. 56 Because ethnic data is not always readily [...] 15-29 5 Kidney failure <15 (or dialysis) 57 CHOLESTEROL INTERPRETATION: Desirable: Less than 200 MG/DL Borderline-High Risk: 200-239 MG/DL High-Risk: 240 MG/DL and over 58 HDL INTERPRETATION: Undesirable: High Risk: Less than 40 MG/DL Desirable: Low Risk: Greater than 60 MG/DL 59 LDL INTERPRETATION: Low Risk Optimal Level: LDL Less than 100 MG/DL Near or Above Optimal: LDL 100-129 MG/DL Borderline High Risk: LDL 130-159 MG/DL High Risk: LDL 160-189 MG/DL Very High Risk: LDL Greater than 189 MG/DL 60 A metabolite of Naproxen, O-desmethylnaproxen, has been shown to interfere with the Jendrassik-Combined [place]ocks method for measuring total bilirubin. Samples from patients who have taken Naproxen have shown spurious elevation in total bilirubin levels. 61 Please note updated reference range, effective 10/20/09 62 Anion gap measurement may be of limited value in the presence of any alkalosis, especially in a combined acid base disorder. . 63 A metabolite of Naproxen, O-desmethylnaproxen, has been shown to interfere with the Jendrassik-Louie method for measuring total bilirubin. Samples from patients who have taken Naproxen have shown spurious elevation in total bilirubin levels. 64 Because ethnic data is not always readily [...] 15-29 5 Kidney failure <15 (or dialysis) 65 THERAPEUTIC TARGET FOR THE TREATMENT OF DIABETES MELLITUS PATIENTS IS <7% HBA1C, AND IN SELECTIVE PATIENTS <6.0%. PLEASE REFER TO [place] [employer] DIABETIC CARE GUIDELINES FOR FURTHER INFORMATION. Procedures Date Code Description Status 03/10/2018 95945 EEG Recording Awake & Drowsy Completed 01/22/2018 02329 EKG Tracing & Interpretation Completed 11/26/2017 89927 EKG Tracing & Interpretation Completed 10/21/2017 33309 Stress Test Completed 10/21/2017 65828 Myocardial Perfusion Imaging Tomographic (Spect) Multiple Completed Studies 10/14/2017 94079 ECHO Transthoracic, Real-Time 2D With Doppler And Color Completed Flow 10/14/2017 31259 ECHO Transthoracic, Real-Time 2D With Doppler And Color Completed Flow 10/09/2017 68791 EKG Tracing & Interpretation Completed 04/16/2017 38236 Nerve Conduction 07-08 Studies Completed 09/17/2016 91708 EKG Tracing & Interpretation Completed 03/05/2016 47616 EKG Tracing & Interpretation Completed 02/08/2016 58301 Treadmill Interp/Report Only Completed 02/08/2016 46332 Stress Test Supervsn W/Out I/R Completed 02/08/2016 20418 EKG, Interpretation Only Completed 08/15/2015 53331 EKG Tracing & Interpretation Completed 01/04/2015 42997 EKG Tracing & Interpretation Completed 06/15/2014 25036 Stress Test Completed 06/15/2014 62512 Myocardial Perfusion Imaging Tomographic (Spect) Multiple Completed Studies 04/19/2014 26401 ECHO Transthoracic, Real-Time 2D With Doppler And Color Completed Flow 03/31/2014 67432 EKG Tracing & Interpretation Completed 03/15/2014 20065 EKG Tracing & Interpretation Completed 06/10/2012 77105 EKG Tracing & Interpretation Completed 12/13/2011 91414 EKG Tracing & Interpretation Completed 11/20/2011 86118 Left Heart Cath. Incl S/I Coronaries, Angio S/I V Gram If Completed Done 11/20/2011 69037 Cath PLMT&NJX L Ventriculog Img S&I Completed 11/20/2011 79536 Color Flow Doppler/Interp & Reprt Completed 11/20/2011 23039 Pulse Wave/Continuous-Interp.RPT Completed 11/20/2011 84030 ECHO Transthorasic Realtime 2D W Doppler & Color Flow Hosp Completed Encounters Type Date Location Provider Dx Diagnosis Office Visit 03/16/2018 [facility] Loi Da Silva Z98.1 Arthrodesis status 9:13a Assoc,pc PA Hospitalists I25.10 Athscl heart disease of [place] coronary artery w/o ang pctrs R13.10 Dysphagia, unspecified R20.0 Anesthesia of skin E11.9 Type 2 diabetes mellitus without complications I10 Essential (primary) hypertension Office Visit 03/15/2018 9:13a [facility] Loi Z98.1 Arthrodesis Assoc,pc DONY Da Silva status Hospitalists I25.10 Athscl heart disease of [place] coronary artery w/o ang pctrs R13.10 Dysphagia, unspecified R20.0 Anesthesia of skin E11.9 Type 2 diabetes mellitus without complications I10 Essential (primary) hypertension Office Visit 03/14/2018 9:13a [facility] Saradre Durant, Z98.1 Arthrodesis Assoc,pc [employer] status Hospitalists R13.10 Dysphagia, unspecified R20.0 Anesthesia of skin E11.9 Type 2 diabetes mellitus without complications I10 Essential (primary) hypertension I25.10 Athscl heart disease of [place] coronary artery w/o ang pctrs Office Visit 03/12/2018 9:12a [facility] Sara Bhargav, Z98.1 Arthrodesis Assoc,pc [employer] status Hospitalists R13.10 Dysphagia, unspecified R20.0 Anesthesia of skin E11.9 Type 2 diabetes mellitus without complications I10 Essential (primary) hypertension I25.10 Athscl heart disease of [place] coronary artery w/o ang pctrs Office Visit 03/11/2018 [facility] Jess Z98.1 Arthrodesis 9:12a Assoc,pc Jhon [employer] status Hospitalists I25.10 Athscl heart disease of [place] coronary artery w/o ang pctrs R13.10 Dysphagia, unspecified R20.0 Anesthesia of skin E11.9 Type 2 diabetes mellitus without complications I10 Essential (primary) hypertension Office 03/10/2018 [facility] Marilyn Hartmann MD R20.2 Paresthesia of Visit 7:00a Clinic skin Office 03/10/2018 [facility] Z98.1 Arthrodesis Visit 9:11a Assoc,pc Hospitalists BRANDON Chiang status R20.0 Anesthesia of skin R13.10 Dysphagia, unspecified I25.10 Athscl heart disease of [place] coronary artery w/o ang pctrs E11.9 Type 2 diabetes mellitus without complications I10 Essential (primary) hypertension Office 03/09/2018 Neurohospital[facility] Joseph R20.2 Paresthesia of Visit 7:00a Clinic Fredrick Gomez skin Office 03/09/2018 [facility] Z98.1 Arthrodesis Visit 9:11a Assoc,pc Kelsey Chiang NP status R20.0 Anesthesia of skin R13.10 Dysphagia, unspecified I25.10 [place] heart disease of [place] coronary artery w/o ang pctrs E11.9 Type 2 diabetes mellitus without complications I10 Essential (primary) hypertension Office Visit 03/08/2018 9:11a [facility] Leighann Kennedy, M43.26 Fusion of Assoc,pc N.P. spine, lumbar Hospitalists region I25.10 [place] heart disease of [place] coronary artery w/o ang pctrs E11.9 Type 2 diabetes mellitus without complications I10 Essential (primary) hypertension Office Visit 03/07/2018 9:06a [facility] Leighann Kennedy, M43.26 Fusion of Assoc,pc N.P. spine, lumbar Hospitalists region I25.10 [place]scl heart disease of [place] coronary artery w/o ang pctrs F32.9 Major depressive disorder, single episode, unspecified E11.9 Type 2 diabetes mellitus without complications I10 Essential (primary) hypertension Office Visit 03/06/2018 9:06a [facility] Jess I10 Essential Assoc,pc BRANDON Ferreira (primary) Hospitalists hypertension I25.10 Athscl heart disease of [place] coronary artery w/o ang pctrs F32.9 Major depressive disorder, single episode, unspecified E11.9 Type 2 diabetes mellitus without complications K21.9 Gastro-esophageal reflux disease without esophagitis E87.8 Oth disorders of electrolyte and fluid balance, [facility] Office Visit 01/22/2018 11:20a [facility] Dejah Coreas M48.02 Spinal stenosisAnya M.D. cervical region E78.00 Pure hypercholesterolemia, unspecified I10 Essential (primary) hypertension I25.10 Athscl heart disease of [place] coronary artery w/o ang pctrs I44.0 Atrioventricular block, first degree Office Visit 12/16/2017 Neurosurgery Vassilios M47.12 Other 3:00p Services Of Blas Em MD spondylosis with myelopathy, cervical region M48.02 Spinal stenosis, cervical region M40.202 Unspecified kyphosis, cervical region Office Visit 12/10/2017 [place] Nurse Visit I10 Essential (primary) 10:00a Cardiology Of hypertension [facility] Office Visit 11/26/2017 [place] Francy SPenny R94.31 Abnormal 11:00a [facility] Of [place], electrocardiogram [ECG] [facility] N.P. [EKG] E78.00 Pure hypercholesterolemia, unspecified I10 Essential (primary) hypertension I25.10 Athscl heart disease of [place] coronary artery w/o ang pctrs Office Visit 10/09/2017 8:20a [place] [facility] Dejah Coreas I10 Essential (primary) Of Bl[facility] Cano M.D. hypertension E78.00 Pure hypercholesterolemia, unspecified I25.10 Athscl heart disease of [place] coronary artery w/o ang pctrs G56.03 Carpal tunnel syndrome, bilateral upper limbs R00.1 Bradycardia, unspecified R94.31 Abnormal electrocardiogram [ECG] [EKG] E66.9 Obesity, unspecified Office Visit 09/09/2017 [facility] Joseph Gomez, M47.12 Other spondylosis 11:15a Neurologic M.D. with myelopathy, Services Of [facility] cervical region G56.03 Carpal tunnel syndrome, bilateral [...] myelopathy, cervical region Office Visit 04/16/2017 1:00p [facility] Soraya Tena G56.03 Carpal tunnel Services Of [facility] Henry M.D. syndrome, bilateral upper limbs M48.02 Spinal stenosis, cervical region Office Visit 02/26/2017 10:00a [facility] Soraya Tena R20.2 Paresthesia of Services Of [facility] Henry M.D. skin G56.03 Carpal tunnel syndrome, bilateral upper limbs Z86.12 Personal history of poliomyelitis Office Visit 10/30/2016 10:00a [facility] Dermatology Lamonte Jose, G90.09 Other idiopathic peripheral autonomic neuropathy Office Visit 10/16/2016 10:20a [facility] Dermatology Lamonte Jose G90.09 Other idiopathic peripheral autonomic neuropathy Office Visit 09/17/2016 11:20a [facility] Dejah Coreas R07.9 Chest pain, Fredrick Cano unspecified I25.10 Athscl heart disease of [place] coronary artery w/o ang pctrs I10 Essential (primary) hypertension K21.0 Gastro-esophageal reflux disease with esophagitis E11.9 Type 2 diabetes mellitus without complications E78.00 Pure hypercholesterolemia, unspecified Office Visit 03/27/2016 3:30p [place] [facility] Millie Menendez, R07.9 Chest pain, Of [facility] [place] unspecified I25.10 Athscl heart disease of [place] coronary artery w/o ang pctrs I10 Essential (primary) hypertension Office Visit 03/05/2016 11:00a [place] [facility] Millie Menendez R07.9 Chest pain, Of [facility] [place] unspecified I25.10 Athscl heart disease of [place] coronary artery w/o ang pctrs I10 Essential (primary) hypertension K21.0 Gastro-esophageal reflux disease with esophagitis Office Visit 02/08/2016 [facility] R07.9 Chest pain, 4:13p Assoc,yamilet Baron, [employer] unspecified Hospitalists I25.10 Athscl heart disease of [place] coronary artery w/o ang pctrs I10 Essential (primary) hypertension Office Visit 02/07/2016 [facility] Jeffery R07.9 Chest pain, 4:12p Assoc,yamilet Saul, N.P. unspecified Hospitalists I25.10 Athscl heart disease of [place] coronary artery w/o ang pctrs E11.9 Type 2 diabetes mellitus without complications I10 Essential (primary) hypertension Office Visit 08/15/2015 10:40a [facility] Dejah Coreas I25.10 Athscl heart Fredrick Cano disease of [place] coronary artery w/o ang pctrs I10 Essential (primary) hypertension I25.2 Old myocardial infarction E11.65 Type 2 diabetes mellitus with hyperglycemia Office Visit 08/31/2014 [facility] Millie Menendez 414.01 Coronary 9:00a Cardiology [place] Atherosclerosis [place] 412 Myocardial Infarction Old 401.9 Hypertension Unspec 780.79 Malaise And Fatigue Other 250.82 Diabetes W/ Other Spec Manifestations Type II Uncontrolled Office Visit 06/15/2014 Trena Coreas 414.01 Coronary 9:30a Cardiology Tamara Cano M.D. Atherosclerosis Bus Operator [place] 412 Myocardial Infarction Old 780.79 Malaise And Fatigue Other 401.9 Hypertension Unspec 250.82 Diabetes W/ Other Spec Manifestations Type II Uncontrolled 272.4 Hyperlipidemia Other Unspec Office Visit 06/08/2014 11:00a [facility] Millie Menendez, 401.1 Hypertension Benign [place] 414.01 Coronary Atherosclerosis [place] 412 Myocardial Infarction Old 780.79 Malaise And Fatigue Other 272.4 Hyperlipidemia Other Unspec Office Visit 03/31/2014 11:00a [facility] Nurse Visit 401.1 Hypertension Benign cc 414.01 Coronary Atherosclerosis [place] Office Visit 03/15/2014 [facility] Dejah Coreas 414.01 Coronary 3:20p Cardiology Fredrick Cano Atherosclerosis [place] 412 Myocardial Infarction Old 250.82 Diabetes W/ Other Spec Manifestations Type II Uncontrolled 272.4 Hyperlipidemia Other Unspec 401.1 Hypertension Benign 307.49 Sleep Disorder Other 780.79 Malaise And Fatigue Other Office Visit 04/15/2013 [facility] Ana Rosa 414.01 Coronary 10:00a Cardiology Aris Cervantes Atherosclerosis [place] 412 Myocardial Infarction Old V45.81 Aortocoronary Bypass Postsurgical Status 250.82 Diabetes W/ Other Spec Manifestations Type II Uncontrolled 272.4 Hyperlipidemia Other Unspec 401.1 Hypertension Benign Office Visit 07/22/2012 [facility] Ana Rosa 414.01 Coronary 2:20p Cardiology AT Aris Cervantes Atherosclerosis [facility] [place] 412 Myocardial Infarction Old 401.1 Hypertension Benign 272.4 Hyperlipidemia Other Unspec 250.82 Diabetes W/ Other Spec Manifestations Type II Uncontrolled Office Visit 06/11/2012 11:00a [facility] Ana Rosa 786.50 Pain Chest Aris Cervantes Unspec 414.8 Ischemic Heart Disease Chronic Other Spec Forms 414.01 Coronary Atherosclerosis [place] 412 Myocardial Infarction Old V45.81 Aortocoronary Bypass Postsurgical Status 401.1 Hypertension Benign 719.41 Pain Joint Shoulder Region Office Visit 04/22/2012 2:20p [facility] Ana Rosa 414.8 Ischemic Heart AT [facility] Aris Cervantes Disease Chronic Other Spec Forms V45.81 Aortocoronary Bypass Postsurgical Status 272.4 Hyperlipidemia Other Unspec 250.82 Diabetes W/ Other Spec Manifestations Type II Uncontrolled 401.1 Hypertension Benign Office Visit 01/24/2012 Hermila Hurtado 414.01 Coronary 2:00p Cardiology AT [facility] Atherosclerosis [facility] [place] 401.1 Hypertension Benign Office Visit 12/27/2011 [facility] 414.01 Coronary 1:30p Cardiology AT [facility] Atherosclerosis [facility] [place] 401.1 Hypertension Benign 272.4 Hyperlipidemia Other Unspec 250.82 Diabetes W/ Other Spec Manifestations Type II Uncontrolled Office Visit 12/13/2011 Trinity[facility] Oseguera V45.81 Aortocoronary 1:20p Cardiology AT Aris Cervantes Bypass Postsurgical [facility] Status 414.01 Coronary Atherosclerosis [place] 411.1 Coronary Syndrome Intermediate 401.1 Hypertension Benign 250.82 Diabetes W/ Other Spec Manifestations Type II Uncontrolled 272.4 Hyperlipidemia Other Unspec Office Visit 11/20/2011 10:13a Hermila Oseguera 411.1 Coronary Syndrome Cardiology Aris Cervantes Intermediate 414.01 Coronary Atherosclerosis [place] 401.1 Hypertension Benign 250.82 Diabetes W/ Other Spec Manifestations Type II Uncontrolled Office Visit 02/09/2011 Billy Winston 841.9 Sprains & Strains 1:15p Services Of Fredrick Rodriguez Elbow & Forearm C.M.A. Unspec Office Visit 01/11/2011 Billy Winston 726.32 Epicondylitis 2:30p Services Of Fredrick Rodriguez C.M.A. Office Visit 04/17/2010 Orthopedic Devi 719.44 Pain Joint Hand 1:00p Services Of aKrol Prieto M.D. Plan of Treatment Future Appointment(s):04/18/2018 9:00 am - Emory Em MD at Neurosurgery Services [facility]02/28/2018 - Emory Em, MDM48.02 Spinal stenosis, cervical regionFollow up:RV one week, one month, three months postop.M40.202 Unspecified kyphosis, cervical vlerqxF16.12 Other spondylosis with myelopathy, cervical region
--- NOTE | 2018-04-18 18:05 | ED ---
ED Suture/Wound Check - HPI Summary HPI Summary: A 62 y/o male presents to the ED s/p call from Dr. Em for testing on wound in back of neck. In the ED room, the patient has a blood pressure of 156/ 88. As per triage, "sent by dr. herrera to have testing done for wound clinic (blood work and CT). weeping wound to cervical spine. patient in c-collar ". According to the patient, he has wounds in the front and back of his neck. He was sent by Dr. Em to get a workup done in order to get a better idea of the wound. Patient is on antibiotics, but is unsure what it is. Patient denies any fevers, chills, sore throat, chest pain, abdominal pain, vomiting, diarrhea, pain with urination, anxiety or depression, but does have pain above his right eye. - History Of Current Complaint Chief Complaint: EDGeneral Stated Complaint: SURGICAL PROBLEM Hx Obtained From: Patient Onset/Duration: Sudden Onset, Lasting Days, Still Present Severity: Moderate Pain Intensity: 5 Pain Scale Used: 0-10 Numeric - Allergies/Home Medications Allergies/Adverse Reactions: Allergies Allergy/AdvReac Type Severity Reaction Status Date / Time codeine AdvReac Unknown INCREASED Verified 04/18/18 16:23 [From Tylenol-Codeine #3] HR PMH/Surg Hx/FS Hx/Imm Hx Endocrine/Hematology History: Reports: Hx Anticoagulant Therapy, Hx Diabetes, Hx Anemia - ON IRON TABLES Denies: Hx Thyroid Disease Cardiovascular History: Reports: Hx Angina, Hx Coronary Artery Disease - QUADRUPLE CARDIAC BYPASS 2011, Hx Hypercholesterolemia, Hx Hypertension, Other Cardiovascular Problems/Disorders - DIABETIC Denies: Hx Myocardial Infarction, Hx Pacemaker/ICD, Hx Valvular Heart Disease Respiratory History: Denies: Hx Asthma, Hx Chronic Obstructive Pulmonary Disease (COPD), Other Respiratory Problems/Disorders GI History: Reports: Hx Gastroesophageal Reflux Disease - CONTROL WITH MEDS Denies: Other GI Disorders History: Denies: Hx Renal Disease Musculoskeletal History: Reports: Hx Arthritis - BACK Denies: Hx Scoliosis Comment Only: Other Musculoskeletal History - Gout. Sensory History: Reports: Hx Contacts or Glasses - GLASSES Denies: Hx Hearing Aid Opthamlomology History: Reports: Hx Contacts or Glasses - GLASSES Neurological History: Reports: Hx Headaches - SOMETIMES, Other Neuro Impairments /Disorders - CHRONIC LBP Denies: Hx Dementia, Hx Seizures Psychiatric History: Reports: Hx Anxiety Denies: Hx Panic Disorder, Hx Substance Abuse, Other Psychiatric Issues/ Disorders - Surgical History Surgery Procedure, Year, and Place: 1974 & 1999 RIGHT LEG VEIN STRIPPINGS,. CARDIAC C[place]ER[place] [facility] [place]/2011 CABG (QUADRUPLE BYPASS), [place]. HERNIA WITH MESH 2013 Hx Anesthesia Reactions: No Infectious Disease History: No Infectious Disease History: Denies: Hx Hepatitis, Hx Human Immunodeficiency Virus (HIV), Traveled Outside the [place] in Last 30 Days - Family History Known Family History: Positive: Cardiac Disease, Diabetes - Social History Alcohol Use: None Hx Substance Use: No Substance Use Type: Reports: None Hx Tobacco Use: No Smoking Status (MU): Never Smoked Tobacco Type: Cigarettes Have You Smoked in the Last Year: No Review of Systems Negative: Fever, Chills Positive: Other - NEGATIVE: DOUBLE VISION. Negative: Blurred Vision Negative: Sore Throat, Ear Ache Negative: Chest Pain Negative: Shortness Of Breath Positive: Other - NEGATIVE: CONSTIPATION, BLOOD IN STOOL. Negative: Abdominal Pain, Vomiting, Diarrhea Negative: dysuria, hematuria Positive: Other - NEGATIVE: BACK PAIN, NECK PAIN; POSITIVE: PAIN ABOVE RIGHT EYE. Negative: Edema Positive: Other - POSITIVE: WOUND IN BACK AND FRONT OF NECK. Negative: Rash, Bruising Negative: Headache Negative: Anxious, Depressed All Other Systems Reviewed And Are Negative: No Physical Exam - Summary Physical Exam Summary: Appearance: Alert, conversive, nontoxic appearing, [place] collar Skin: Warm, dry, no mottling, no rashes, no contusions, front wound clean, dry and intact. Back have small wound with minimal draining which is not foul smelling. HEENT: EOMI, PERRL, moist mucous membranes Neck: No masses on the neck, supple Respiratory: Clear to auscultation, breath sounds present, no rales, no rhonchi , no wheezes Cardiovascular: RRR, pulses are symmetrical in both lower and upper extremities Abdomen: Soft, non-tender Bowel Sounds: Present Musculoskeletal: No CVA tenderness, no obvious deformity, moving all extremities in a grossly normal manner Neurological: A&Ox3, CN II-XII Intact, moving all extremities symmetrically Psychiatric: Normal affect and mood Triage Information Reviewed: Yes Vital Signs On Initial Exam: Initial Vitals Temp Pulse Resp BP Pulse Ox 97.7 F 93 16 167/107 98 04/18/18 16:16 04/18/18 16:16 04/18/18 16:16 04/18/18 16:16 04/18/18 16:16 Vital Signs Reviewed: Yes Diagnostics - Vital Signs Vital Signs Temp Pulse Resp BP Pulse Ox 04/18/18 16:16 97.7 F 93 16 167/107 98 - Laboratory Result Diagrams: 04/18/18 18:40 04/18/18 18:40 Lab Statement: Any lab studies that have been ordered have been reviewed, and results considered in the medical decision making process. - CT NECK CT CT Interpretation Completed By: Radiologist Summary of CT Findings: 1. Stable postoperative changes of anterior and intervertebral fusion from C4-T1 but new since the prior exam are postoperative changes of laminectomy from C3-C7 and new posterior fusion from C2-T2. 2. There is new incisional wound of the dorsal cervical spine with mild. cellulitis or subcutaneous edema in the subcutaneous fat layer but no visible discrete abscess. Re-Evaluation - Re-Evaluation First Eval Re-Evaluation Time: 21:40 Change: Unchanged Comment: PATIENT WILL WAIT FOR OPTILOCK DRESSING, IF WE HAVE NONE AVAILABLE, THE PATIENT WILL BE FINE WITH BEING DISCHARGE AND USING HYDROGEN PEROXIDE SPRAY. Course/Dx - Course Course Of Treatment: A 62 y/o male presents to the ED s/p call from Dr. Em for testing on wound in back of neck. Physical examination findings significant for front wound clean, dry and intact. Back have small wound with minimal draining which is not foul smelling. A CT Neck revealed 1. Stable postoperative changes of anterior and intervertebral fusion from C4-T1 but new since the prior exam are postoperative changes of laminectomy from C3-C7 and new posterior fusion from C2-T2. 2. There is new incisional wound of the dorsal cervical spine with mild cellulitis or subcutaneous edema in the subcutaneous fat layer but no visible discrete abscess. Hematology and Chemistry screens were done. No significant laboratory abnormalities were found. In the ED course , the patient received Visipaque. Patient will be discharged with a diagnosis of mild cellulitis. Patient is to follow up with Dr. Joshua and keep wound clean and dry. Patient is to return to the ED for any new or worsening symptoms. Patient is agreeable with this plan. - Clinical Impression Provider Diagnoses: Cellulitis Discharge - Sign-Out/Discharge Documenting (check all that apply): Patient Departure - DISCHARGE - Discharge Plan Condition: Stable Disposition: HOME Patient Education Materials: Cellulitis (DC) Referrals: Adalberto Tipton MD [Primary Care Provider] - Emory Em MD [Medical Doctor] - Additional Instructions: Please continue to clean wound as previously instructed. Use the Optilock that Dr. Herrera as instructed. please call his office on saturday your neurosurgeon for a follow up appointment. Take the antibiotic as instructed by your neurosurgeon. - Billing Disposition and Condition Condition: STABLE Disposition: Home - Attestation Statements Document Initiated by Fran: Yes Documenting Toniaibe: Stefan Schroeder Provider For Whom Fran is Documenting (Include Credential): Magda Sheikh MD Scribe Attestation: Stefan Falcon, scribed for Magda Sheikh MD on 04/21/18 at 1918. Scribe Documentation Reviewed: Yes Provider Attestation: The documentation as recorded by the Stefan alcala accurately reflects the service I personally performed and the decisions made by , Magda Sheikh MD Status of Scribe Document: Viewed
[2018-04-18 18:48] LABS: ABS Basophils 0.1 10^3/ul (0-0.2); ABS Eosinophils 0.1 10^3/ul (0-0.6); ABS Monocytes 0.5 10^3/ul (0-0.8); ABS Neutrophils 5.5 10^3/ul (1.5-7.7); ABS Nucleated RBC 0 10^3/ul; Eosinophil % 1.5 %; Hematocrit 42 % (42-52); Lymphocyte % 24.5 %; Mean Corpuscular HGB Conc 34 g/dl (31-36); Mean Corpuscular Hemoglobin 30 pg (27-31); Mean Corpuscular Volume 88 fL (80-94); Mean Platelet Volume 8.4 fL (7.4-10.4); Nucleated Red Blood Cells % 0.1; Platelet Count 266 10^3/ul (150-450); Red Blood Count 4.73 10^6/ul (4.00-5.40); Red Cell Distribution Width 15 % (10.5-15); White Blood Count 8.3 10^3/ul (3.5-10.8)
[2018-04-18 19:06] LABS: Albumin 4.5 g/dL (3.2-5.2); Albumin/Globulin Ratio 1.5 (1-3); BUN/Creatinine Ratio 24.3 (8-20); Calcium 9.9 mg/dL (8.6-10.3); EGFR Non-African American 106.5 (>60); Globulin 3.1 g/dL (2-4); Magnesium 1.6 mg/dL (1.9-2.7); Potassium 3.8 mmol/L (3.5-5.0); Total Bilirubin 0.4 mg/dL (0.2-1.0); Total Protein 7.6 g/dL (6.4-8.9)
[2018-04-18] MEDS ORDERED: Iodixanol* (CONTRAST) 320 MG/ML 100 ML SDV IV ONE (19:10)
[2018-04-18 22:08] VITALS: BP 143/83
== END 2018-04-18 22:08 | disposition home or self-care (01) ==
LOC: ED 16:06
DX: L03.90 Cellulitis, unspecified (principal); I25.119 Atherosclerotic heart disease of native coronary artery with unspecified angina pectoris; E78.00 Pure hypercholesterolemia, unspecified; I10 Essential (primary) hypertension; K21.9 Gastro-esophageal reflux disease without esophagitis; Z79.01 Long term (current) use of anticoagulants; E11.9 Type 2 diabetes mellitus without complications; Z88.5 Allergy status to narcotic agent; F41.9 Anxiety disorder, unspecified
CPT/HCPCS: 36415; 70491; 80053; 83605; 83735; 85025; 96374; 99283; Q9967

== ENCOUNTER 2019-05-29 07:28 | Day surgery (SDC) | payer MEDICARE ==
--- NOTE | 2019-05-21 19:35 | HP ---
PREOPERATIVE HISTORY AND PHYSICAL: DATE OF ADMISSION/SURGERY: 05/29/19 - [facility] DATE OF OFFICE VISIT/ENCOUNTER: 05/21/19 ATTENDING SURGEON: Ana Rosa Belle MD.* (DICTATED BY DONY DIEGO) PROCEDURE: Left wrist carpal tunnel release, left elbow ulnar nerve decompression. HISTORY OF PRESENT ILLNESS: This is a 63-year-old male who has cardiac disease including acute coronary syndrome and non-STEMI in 2012 and a cardiac catheterization following that. His ammonia refrigeration technician is Dr. Joyner. He is complaining of numbness, tingling, and pain in his left hand including all fingers. This has been ongoing for several months and recently worsening. He had a nerve conduction study, which showed an ulnar neuropathy of the left elbow and bilateral carpal tunnel syndrome. The situation is complicated by the fact that he has had a cervical spine fusion front and back. This was done for neck pain. He has been followed by Dr. Em who believes that his current symptoms in his left hand are not caused by issues of the cervical spine , they appear to be caused by nerve compression of the left elbow and at the left carpal tunnel. The patient has consented to proceed with surgical intervention for this problem. We will obtain clearance from his ammonia refrigeration technician, Dr. Joyner prior to proceeding with surgery. PAST MEDICAL HISTORY: 1. Hypercholesterolemia. 2. Hypertension. 3. Diabetes mellitus. 4. Coronary arterial sclerosis. 5. Acute coronary syndrome. 6. Non-STEMI in 2011. 7. Depression. PAST SURGICAL HISTORY: 1. Cardiac catheterization. 2. Vein stripping. 3. CABG x5 in 2011. 4. Hernia repair. 5. C-spine fusion. CURRENT MEDICATIONS: 1. Aspirin 81 mg daily. 2. Atorvastatin calcium 40 mg daily. 3. Diltiazem CD 240 mg daily. 4. Irbesartan 75 mg 2 tabs daily. 5. Metformin HCl ER 1000 mg daily. 6. Metoprolol succinate ER 25 mg daily. 7. Mirtazapine 30 mg daily. 8. Pantoprazole sodium 40 mg daily. 9. Zolpidem tartrate 5 mg daily. ALLERGIES: CODEINE, reaction unknown. FAMILY MEDICAL HISTORY: Diabetes, heart disease, hypertension. SOCIAL HISTORY: The patient is retired. He denies tobacco use, recreational drug use and does not drink alcohol. REVIEW OF SYSTEMS: Negative for general, cephalic, cardiovascular, respiratory , GI, , other musculoskeletal, integumentary, endocrine, neurologic and hematologic symptoms. Infectious Disease: Negative for MRSA, hepatitis C, HIV. PHYSICAL EXAMINATION GENERAL: A well-developed, well-nourished 63-year-old male, in no acute distress. VITAL SIGNS: Height 5 feet 11 inches, weight 246 pounds. Pulse rate 100, blood pressure 188/90. Second check on blood pressure 154/76. HEENT: Normocephalic, atraumatic. Pupils are equal, round, and reactive to light and accommodation. Extraocular movements are intact. Throat is clear. NECK: Supple. No palpable lymph nodes. PULMONARY: Lungs are clear to auscultation bilaterally. No wheezes, rales, or rhonchi. CARDIOVASCULAR: Regular rate and rhythm. S1, S2. No murmurs, rubs, or gallops. No edema. ABDOMEN: Positive bowel sounds. Soft, nontender. NEUROLOGICAL: Alert and oriented x3. Cranial nerves II through XII are intact. MUSCULOSKELETAL: On exam of the left upper extremity, there is some first dorsal inner osseous wasting. He has good strength resisting thumb abduction and finger abduction, positive Tinel's at the ulnar nerve on the left and decreased sensation to light touch on all fingers on the left. There is no thenar wasting. SKIN: intact. DIAGNOSTIC STUDIES: Nerve conduction study shows ulnar neuropathy of the left elbow and bilateral carpal tunnel syndrome. IMPRESSION: As above. PLAN: The patient is scheduled to undergo a left wrist carpal tunnel release and a left elbow ulnar nerve decompression with Dr. Belle on 05/29/19. He will follow up in the office 10 days after surgery for suture removal. A prescriptions for Moody was e-scribed to the patient's pharmacy for postoperative pain management. We will receive clearance from Dr. Joyner prior to proceeding with surgery. DONY DIEGO [id number]/[facility] #: [id number]
[~2019-05-29 07:28] MED LIST changes: -Buffered Lidocaine 0.9% SYRIN* 5 ML/SYR SYRINGE INTRADERM ONE; +Buffered Lidocaine 1% SYRIN* 1 ML/SYRINGE INTRADERM ONE; +Lactated Ringers 1000 ML Bag* 1,000 ML IV SCH; -Sodium Citrate/Citric Acid* 15 ML UDC PO ONE
[2019-05-29] MEDS ORDERED: ceFAZolin 2 GM in NS PREMIX(*) 2 GM/100 ML BAG IVPB ONE (07:39)
[2019-05-29] MEDS ORDERED: Bupivacaine 0.5% SDV PF* 30ML VIAL ONE (09:06)
[2019-05-29] MEDS ORDERED: Lidocaine 1% INJ* 10 MG/ML 30 ML SDV ONE (09:06)
[2019-05-29] MEDS ORDERED: Midazolam* 1 MG/ML 2 ML VIAL (2 MG) ONE (10:18)
[2019-05-29] MEDS ORDERED: Lidocaine 2% PF * 5 ML VIAL ONE ×2 (10:24→10:36)
[2019-05-29] MEDS ORDERED: Propofol* 10 MG/ML 20 ML BTL ONE (10:36)
[2019-05-29] MEDS ORDERED: fentaNYL* 50 MCG/ML 2 ML VIAL (100 MCG VIAL) ONE (10:52)
[2019-05-29] MEDS ORDERED: oxyCODONE TAB* 5 MG TAB PO PRN (11:08)
[2019-05-29] MEDS ORDERED: fentaNYL* 50 MCG/ML 2 ML VIAL (100 MCG VIAL) IV PRN (11:08)
[2019-05-29] MEDS ORDERED: Naloxone* 0.4 MG/ML 1 ML VIAL IV PRN (11:08)
[2019-05-29] MEDS ORDERED: Ketorolac INJ* 30 MG/ML 1 ML VIAL IV PRN (11:08)
[2019-05-29] MEDS ORDERED: Acetaminophen TAB* 325 MG PO PRN (11:08)
[2019-05-29] MEDS ORDERED: Ondansetron INJ* 2 MG/ML VIAL IV PRN (11:08)
[2019-05-29 11:46] VITALS: BP 113/70
--- NOTE | 2019-05-29 22:22 | OP ---
DATE OF OPERATION: 05/29/19 [facility] DATE OF : 51 SURGEON: Ana Rosa Belle MD. ADMINISTRATIVE INTERN: DONY Garibay. ANESTHESIA: Nerve block. PRE-OP DIAGNOSES: Left carpal tunnel syndrome and ulnar nerve compression of the left elbow. POST-OP DIAGNOSES: Left carpal tunnel syndrome and ulnar nerve compression of the left elbow. OPERATIVE PROCEDURES: Left ulnar nerve decompression of the elbow and left carpal tunnel release. INDICATIONS: Arthur is a 63-year-old male who has numbness and tingling in his left hand. He has had a cervical spine fusion, but has persistent numbness. He has a positive Tinel sign of the ulnar nerve at the elbow and the median nerve at the wrist, who presents for decompression of the ulnar nerve at the elbow and left carpal tunnel release. ESTIMATED BLOOD LOSS: Zero. TOURNIQUET TIME: About 35 minutes. DESCRIPTION OF PROCEDURE: The patient was brought to the operating room, was given a block anesthetic and sedation anesthetic and a was placed in the supine position on the operating table with the tourniquet around his left upper arm. The skin of his left lower extremity was prepped and draped in the usual sterile fashion. The upper extremity was exsanguinated and the tourniquet elevated to 250 mmHg. A longitudinal incision was made in the palm in line with the ring finger. We dissected through the subcutaneous tissue down to the transverse carpal ligament. The ligament was divided sharply with a knife and then more proximally with the scissors. The nerve was dissected free from the surrounding tissue and there was an area of moderate compression at the mid portion of the ligament. The wound was irrigated and the skin edges reapproximated with 4-0 nylon suture. Next, a curvilinear incision was made on the medial aspect of the left elbow between the medial epicondyle and the tip of the olecranon process. We dissected through the subcutaneous tissue down to the ulnar nerve just proximal to the cubital tunnel. The nerve was carefully dissected out proximally and then through the cubital tunnel where it was very, very tight. Also the superficial fascia of the FCU muscle was very tight. This was divided as was the deep fascia of the FCU muscle. The medial intermuscular septum was then divided with the Bovie. The wound was copiously irrigated with saline. The subcutaneous tissue was closed with 3-0 Vicryl and the skin with skin antonio and the wounds were both dressed with Xeroform, 4x4, Webril, and an Colby wrap. The patient tolerated the procedure well and was brought to the recovery room in good condition. [id number] #: [id number]
== END 2019-05-29 12:08 | disposition home or self-care (01) ==
LOC: OREAST 07:28
PROVIDERS: ATTEND Orthopaedic Surgery
DX: G56.22 Lesion of ulnar nerve, left upper limb (principal); G56.02 Carpal tunnel syndrome, left upper limb; I10 Essential (primary) hypertension; Z95.1 Presence of aortocoronary bypass graft; I25.2 Old myocardial infarction; E78.00 Pure hypercholesterolemia, unspecified; E11.9 Type 2 diabetes mellitus without complications; Z79.84 Long term (current) use of oral hypoglycemic drugs; I25.10 Atherosclerotic heart disease of native coronary artery without angina pectoris; F32.9 Major depressive disorder, single episode, unspecified
CPT/HCPCS: J0690; J2250; J2704; J3010; J3490